=== PATIENT | male | born 1995 | race African-American/Black ===

== ENCOUNTER 2019-03-09 20:07 | Inpatient (IN) | payer OTHER ==
[2019-03-09] MEDS ORDERED: NACL 0.9% 1000 ML 2,000 ML ONE ×2 (20:24→20:37)
[2019-03-09] MEDS ORDERED: VANCOMYCIN 1,500 MG in NACL 0.9% 500 ML 500 ML IV ONE (20:28)
[2019-03-09] MEDS ORDERED: ZOVIRAX 800 MG in NACL 0.9% 100 ML IV STA (20:28)
[2019-03-09] MEDS ORDERED: NACL 0.9% 1000 ML IV ONE (20:28)
[2019-03-09] MEDS ORDERED: DECADRON IV ONE (20:32)
[2019-03-09] MEDS ORDERED: VERSED IV PRN (20:35)
[2019-03-09] MEDS ORDERED: SUBLIMAZE IV PRN (20:35)
[2019-03-09] MEDS ORDERED: ARTIFICIAL TEARS OPHTH OINT OU PRN (20:35)
[2019-03-09] MEDS ORDERED: VASELINE LIP THERAPY TP PRN (20:35)
--- NOTE | 2019-03-09 20:37 | Emergency Department Report ---
ED General Adult HPI - General Chief complaint: Weakness Stated complaint: AMS Time Seen by Provider: 03/09/19 20:27 Source: EMS (verbal report received from EMS. EMS documentation not available at the time of CHART dictation) Mode of arrival: Stretcher Limitations: Altered Mental Status, Physical Limitation - History of Present Illness Initial comments: This is a 23-year-old gentleman. The patient is not known to this provider previously. The patient is brought to the hospital by emergency medical services for altered mental status. His last known well time is not explicitly known. As per verbal report from EMS, patient found in bed, altered. Apparently, the patient was diaphoretic, foaming at the mouth, not convulsing, and was found to have a very fast tachycardic rhythm, that was reportedly borderline wide complex. EMS was concerned about SVT, and therefore given adenosine, and tried cardioversion. This was not successful. EMS states the patient had a normal Accu-Chek in the field. Upon arrival to the emergency room, the patient was altered, and foaming at the mouth, and not protecting secretions. He had a normal Accu-Chek in the emergency room. He is found to have a very tachycardic rhythm, borderline wide complex, and has a blood pressure in the 90s. Cardioversion with 200 J was attempted 2. He receives empiric sodium bicarbonate intravenously, and calcium chloride intravenously. This is not successful. In addition, he is intubated immediately and emergently for airway protection, by myself, with one attempt, with no obvious difficulties. After intubation, he is found to have a rectal temperature of 106.6. Patient started on active cooling measures, and treated empirically according to the sepsis pathway. Nursing team has been instructed to obtain patient's medications if any. As per verbal report from nursing team, family has endorsed that the patient has been having fever for about the past 36 hours. Reportedly, there is no travel outside the country. Apparently, the patient took over-the- counter fever medicine earlier on today, possibly Tylenol. The patient was altered with a GCS of 3 upon arrival, and is now intubated. He is therefore not able to describe exacerbating or relieving factors, qualitative nature of his symptoms, or radiation. His family is not able to provide collateral information at this time. -: unknown Quality: other Consistency: other Improves with: other Worsens with: other Associated Symptoms: other - Related Data Home Medications Medication Instructions Recorded Confirmed Last Taken Unobtainable 03/09/19 03/09/19 Unknown Allergies Allergy/AdvReac Type Severity Reaction Status Date / Time No Known Allergies Allergy Verified 03/09/19 20:47 ED Review of Systems ROS: Stated complaint: AMS Other details as noted in HPI Comment: Unobtainable due to pts medical conditions ED Past Medical Hx - Medications Home Medications: Home Medications Medication Instructions Recorded Confirmed Last Taken Type Unobtainable 03/09/19 03/09/19 Unknown History ED Physical Exam - General Limitations: Altered Mental Status General appearance: obtunded - Head Head exam: Present: atraumatic - Eye Eye exam: Present: PERRL - ENT ENT exam: Present: normal external ear exam, other (copious secretions noted in the oropharynx.) - Neck Neck exam: Present: normal inspection. Absent: tenderness, meningismus - Respiratory Respiratory exam: Present: respiratory distress, rhonchi - Cardiovascular Cardiovascular Exam: Present: normal rhythm, tachycardia, normal heart sounds. Absent: bradycardia, systolic murmur, diastolic murmur - GI/Abdominal GI/Abdominal exam: Present: soft, distended. Absent: tenderness, rebound, rigid, pulsatile mass - Rectal Rectal exam: Present: normal inspection - Extremities Exam Extremities exam: Present: normal inspection, other (2+ pulses noted in the bilateral upper, lower extremities. The compartments are soft. There is no long bony tenderness.). Absent: tenderness, pedal edema, joint swelling, calf tenderness - Back Exam Back exam: Absent: tenderness, CVA tenderness (R), CVA tenderness (L), paraspinal tenderness, vertebral tenderness - Neurological Exam Neurological exam: Present: altered, other (patient initially presents with GCS of 3) - Psychiatric Psychiatric exam: Present: other (the patient is nonverbal) - Skin Skin exam: Present: diaphoretic ED Course Vital Signs 03/09/19 03/09/19 03/09/19 20:08 20:16 20:29 Temperature Pulse Rate 178 H 195 H 120 H Pulse Rate [ Apical] Respiratory 29 H 16 Rate Blood Pressure 137/78 O2 Sat by Pulse 100 100 Oximetry 03/09/19 03/09/19 03/09/19 20:30 20:38 20:45 Temperature 106.6 F H Pulse Rate 169 H 163 H 125 H Pulse Rate [ Apical] Respiratory 17 16 20 Rate Blood Pressure 90/36 124/49 128/48 O2 Sat by Pulse 100 100 100 Oximetry 03/09/19 03/09/19 03/09/19 20:47 21:01 21:15 Temperature Pulse Rate 131 H 127 H 125 H Pulse Rate [ Apical] Respiratory 23 25 H Rate Blood Pressure 156/81 137/78 O2 Sat by Pulse 100 100 Oximetry 03/09/19 03/09/19 03/09/19 21:31 21:45 22:01 Temperature Pulse Rate 115 H 115 H 147 H Pulse Rate [ Apical] Respiratory 23 26 H 29 H Rate Blood Pressure 137/78 139/79 139/79 O2 Sat by Pulse 100 100 100 Oximetry 03/09/19 03/09/19 03/09/19 22:51 23:00 23:01 Temperature 104.2 F H Pulse Rate 173 H 156 H Pulse Rate [ Apical] Respiratory 27 H 25 H Rate Blood Pressure 115/57 131/51 O2 Sat by Pulse 100 100 Oximetry 03/09/19 03/09/19 03/09/19 23:15 23:31 23:45 Temperature Pulse Rate 163 H 147 H 134 H Pulse Rate [ Apical] Respiratory 33 H 29 H 34 H Rate Blood Pressure 131/51 131/51 100/56 O2 Sat by Pulse 100 100 99 Oximetry 03/10/19 03/10/19 03/10/19 00:01 00:21 00:41 Temperature Pulse Rate 120 H 118 H 117 H Pulse Rate [ Apical] Respiratory 26 H 24 24 Rate Blood Pressure 101/47 82/54 88/44 O2 Sat by Pulse 100 100 100 Oximetry 03/10/19 03/10/19 03/10/19 01:01 01:11 01:29 Temperature 101.1 F H Pulse Rate 113 H Pulse Rate [ 97 H Apical] Respiratory 24 24 Rate Blood Pressure 89/57 O2 Sat by Pulse 100 100 Oximetry - Reevaluation(s) Reevaluation #1: 03/09/19 21:59 Differential diagnosis, including but not limited to: Respiratory failure, meningitis, encephalitis, bacteremia, viremia, urinary tract infection, pneumonia, intra-abdominal infection, toxic encephalopathy, serotonin syndrome, malignant hyperthermia, thyroid storm, electrolyte derangement Assessment and plan: 23-year-old gentleman with tachycardia, initial fever of 106.6, requiring intubation, sedation, paralysis, and mechanical ventilation. Patient will be treated empirically according to the sepsis pathway with ceftriaxone, Decadron, acyclovir, and vancomycin. A spinal tap performed once his CTs have been performed of his head, and abdomen/pelvis. As per verbal report from EMS, there is no trauma. Once his paralysis has worn off, we'll assess for the presence of clonus and hyper or hyporeflexia. Currently, patient found to have convulsive event in the ER, therefore, Ativan ordered, and Keppra ordered. Discussed with critical care physician, Dr. Elvi Bermudez who agrees with placement into the intensive care unit, the patient is admitted to this hospital and not transferred. Reevaluation #2: 03/09/19 23:10 Patient has put out approximately 7 50 mL of blood from nasogastric tube. INR 3.98, PTT 38. Discussed with family and sister. Patient reportedly has no chronic medical conditions, and has not traveled outside the country. Patient also found to be hypokalemic and hypomagnesemic. Prothrombin complex concentrate ordered. Discussed with gastroenterology, Dr. Colon, who will follow in consultation. she is in agreement with medical management at this time. We will discuss with infectious disease at this time. Cannot perform spinal tap secondary to supratherapeutic INR. Rediscussed with critical care, Dr. Bermudez, who agrees with aggressive medical management. Discussed with cardiology on-call, Dr. Montana, who agrees with aggressive me dical management, echo in the morning, and assessments after echo. 03/09/19 23:30 Reevaluation #3: 03/09/19 23:31 CT scan of the brain is negative for acute disease. Fluid noted in the maxillary sinus. Reevaluation #4: 03/09/19 23:45 Cannot perform spinal tap secondary to coagulopathy. Extensive discussion had with patient's sister and family, Mrs. Ebony Thomas; [id number] 11/07/1928 to 61 She states patient has not traveled outside the country recently. No recent sick contacts that she is aware of. Discussed laboratory findings and prognosis with family. Case presented to Hospital physician, Dr. Amarilys Waddell, who has accepted the patient to the medical service. Reevaluation #5: 03/09/19 23:46 CT scan of the abdomen and pelvis suggest gastroenteritis - Consultations Consultation #1: 03/10/19 00:14 d/w infectious disease on-call, Dr. Feliciano, agrees with aforementioned management, coverage empirically for meningitis, and recommends MRI of the brain with and without contrast to evaluate for potential meningeal encephalitis. We will defer to the inpatient team to order this. Consultation #2: 03/10/19 00:40 Patient now hypotensive after aggressive fluid resuscitation. Given coagulopathy, and obvious easy bleeding, as evidenced from upper GI bleed, not ideal candidate for central line, therefore, right lower extremity intraosseous line is placed after typical aseptic technique is employed. A 25 mm 15-gauge intraosseous lines placed on the right tibial region. Norepinephrine ordered. - Intubation Time Out Performed: No (emergency situation) Sedative: Etomidate Mg Given: 20 Paralytic: Rocuronium Mg Given: 100 Laryngoscope: John Size: 4 Assist Device Used: fiberoptic device ET Tube Size: 7.5 Tube Secured Depth (cm): 23 Tube Secured Location: teeth Tube Placement Confirmation: visualized tube passing t, equal breath sounds bilat, no breath sounds over epi, confirmation by capnometr Patient Tolerated Procedure: well Intubation Complications: none Additional Comments: Patient placed on nasal cannula at 15 L/m. Receives aggressive bag valve mask ventilation, and aggressive suctioning Patient induced with etomidate, and paralyzed with rocuronium. Direct laryngoscopy performed, and a 7.5 endotracheal tube is inserted, under direct visualization, without difficulty. Tube placement is confirmed. The patient tolerated this adequately. - IO Right Tibia Consent Obtained: emergent situation Time Out Performed: Yes IO Instrument Used to Penetrate the Cortex: battery powered IO drill Patient Tolerated Procedure: well Complications: none ED Medical Decision Making - Lab Data Result diagrams: 03/11/19 21:50 03/11/19 21:50 Vital Signs 03/09/19 03/09/19 03/09/19 20:08 20:16 20:30 Temperature Pulse Rate 178 H 195 H 169 H Respiratory 29 H 16 17 Rate Blood Pressure 90/36 O2 Sat by Pulse 100 100 Oximetry 03/09/19 03/09/19 03/09/19 20:38 20:45 20:47 Temperature 106.6 F H Pulse Rate 163 H 125 H 131 H Respiratory 16 20 Rate Blood Pressure 124/49 128/48 O2 Sat by Pulse 100 100 Oximetry Lab Results 03/09/19 Range/Units 21:25 WBC 6.6 (4.5-11.0) K/mm3 RBC 5.53 H (3.65-5.03) M/mm3 Hgb 17.2 H (11.8-15.2) gm/dl Hct 50.3 H (35.5-45.6) % MCV 91 (84-94) fl MCH 31 (28-32) pg MCHC 34 (32-34) % RDW 13.2 (13.2-15.2) % - EKG Data 03/09/19 22:03 Initial EKG shows a tachycardic rhythm, extreme right axis deviation, nonspecific ST abnormality, probable normal sinus, however, the EKG has a QTC is prolonged. This is an abnormal EKG. EKG is not consistent with ST elevation myocardial infarction. EKG #2 shows a sinus tachycardia, rate of 110 bpm, there is a left axis deviation, there is left ventricular hypertrophy, the QTC is prolonged, there is a borderline left anterior fascicular block, EKG is abnormal, it is not consistent with ST elevation myocardial infarction. - Radiology Data Radiology results: report reviewed, image reviewed Print Report Referring Physician: LLUVIA MCGUIRE Patient Name: BOBBY THOMAS Date of : 1995 Sex: Male Report Date: 2019-03-09 Report Status: Finalized Findings [facility] [address] [place] [address] XRay Report Signed Patient: BOBBY THOMAS MR#: [id number] : 1995 Acct:[id number] Age/Sex: 23 / M ADM Date: 03/09/19 Loc: ED Attending Dr: Ordering Physician: LLUVIA MCGUIRE MD Date of Service: 03/09/19 Procedure(s): XR chest 1V ap Accession Number(s): [id number] cc: LLUVIA MCGUIRE MD Fluoro Time In Minutes: CHEST 1 VIEW INDICATION: resp failure. COMPARISON: None. FINDINGS: Support devices: Endotracheal tube and NG tube in satisfactory position. Heart: Within normal limits. Lungs/Pleura: No acute air space or interstitial disease. Additional findings: None. IMPRESSION: No acute abnormality. Signer Name: Garrick Cannon MD Signed: 03/09/2019 9:17 PM Workstation Name: [id number] Transcribed By: ES Dictated By: Garrick Cannon MD Electronically Authenticated By: Garrick Cannon MD Signed Date/Time: 03/09/192116 Critical Care Time: Yes Critical care time in (mins) excluding proc time.: 180 Critical care attestation.: If time is entered above; I have spent that time in minutes in the direct care of this critically ill patient, excluding procedure time. ED Disposition Clinical Impression: Acute respiratory failure, Acute encephalopathy, Hyperthermia, SIRS (systemic inflammatory response syndrome), Coagulopathy Disposition: OP ADMIT IP TO THIS HOSP Is pt being admited?: Yes Does the pt Need Aspirin: No Condition: Critical
[2019-03-09] MEDS ORDERED: MIDAZOLAM 100 MG in NACL 0.9% 80 ML IV SCH (21:00)
[2019-03-09] MEDS ORDERED: ROCEPHIN/NS 2 GM/100 ML 2 GM/100 ML BAG IV SCH (21:00)
[2019-03-09] MEDS ORDERED: VANCOMYCIN PHARMACY TO DOSE IV SCH (21:00)
[2019-03-09] MEDS ORDERED: NACL 0.9% 1000 ML 2,000 ML IV ONE ×3 (21:04→23:15)
--- NOTE | 2019-03-09 21:22 | XRay Report ---
CHEST 1 VIEW INDICATION: resp failure. COMPARISON: None. FINDINGS: Support devices: Endotracheal tube and NG tube in satisfactory position. Heart: Within normal limits. Lungs/Pleura: No acute air space or interstitial disease. Additional findings: None. IMPRESSION: No acute abnormality. Signer Name: Garrick Cannon MD Signed: 03/09/2019 9:17 PM Workstation Name: [id number]
[2019-03-09 21:43] LABS: Hematocrit 50.3 % (35.5-45.6); Hemoglobin 17.2 gm/dl (11.8-15.2); Mean Corpuscular HGB Conc 34 % (32-34); Mean Corpuscular Volume 91 fl (84-94); Red Blood Count 5.53 M/mm3 (3.65-5.03); Red Cell Distribution Width 13.2 % (13.2-15.2)
[2019-03-09] MEDS ORDERED: ATIVAN IV STA (21:50)
[2019-03-09] MEDS ORDERED: ATIVAN IV PRN (21:51)
[2019-03-09] MEDS ORDERED: KEPPRA 1,000 MG/NS 0.75% 100ML 1,000 MG/100 ML BAG IV ONE (21:51)
[2019-03-09] MEDS ORDERED: ATIVAN ONE (21:53)
[2019-03-09 22:01] LABS: INR 3.98 (0.87-1.13)
[2019-03-09 22:28] LABS: Partial Thromboplastin Time 115.3 Sec. (24.2-36.6)
[2019-03-09] MEDS ORDERED: PROTONIX IV ONE (23:01)
[2019-03-09 23:03] LABS: Alanine Aminotransferase 113 units/L (7-56); Albumin 3.6 g/dL (3.9-5); BUN/Creatinine Ratio 8; Blood Urea Nitrogen 11 mg/dL (9-20); Calcium 8.4 mg/dL (8.4-10.2); Hemolysis Index 34
[2019-03-09] MEDS ORDERED: MAGNESIUM SULFATE 2GM/50ML 2 GM/50 ML BAG IV ONE (23:08)
[2019-03-09] MEDS ORDERED: VITAMIN K (ADULT ONLY) 10 MG in NACL 0.9% 50 ML IV ONE (23:11)
[2019-03-09] MEDS ORDERED: TYLENOL PR ONE ×2 (23:12→23:19)
[2019-03-09 23:13] LABS: Hepatitis B Surface Antigen Non-Reactive (Negative); Hepatitis C Virus Antibody Non-Reactive (NonReactive)
[2019-03-09] MEDS ORDERED: VIAFLEX EMPTY CONTAINER IV ONE (23:15)
[2019-03-09] MEDS ORDERED: KCENTRA IV ONE (23:15)
[2019-03-09 23:17] LABS: Basophils % (Manual) 0 % (0.0-1.8); Eosinophils % (Manual) 0 % (0.0-4.3); Platelet Estimate Appears Decreased; RBC Morphology Normal; Total Cells Counted 100
--- NOTE | 2019-03-09 23:17 | Cat Scan Report ---
CT head/brain wo con INDICATION: MAIN: ams, UNRESPONSIVE, FEVER INTUBATED. TECHNIQUE: All CT scans at this location are performed using the following dose modulation technique: Automated exposure control. CONTRAST: None. COMPARISON: None available. FINDINGS: The ventricular system is appropriate in size and configuration without midline shift. Nega tive for mass, stroke or hemorrhage. Imaged portions of the paranasal sinuses demonstrate mild fluid at the left maxillary sinus. IMPRESSION: Mild fluid left maxillary sinus. Signer Name: Garrick Cannon MD Signed: 03/09/2019 11:12 PM Workstation Name: [id number]
[2019-03-09 23:18] LABS: Platelet Count 89 K/mm3 (140-440)
--- NOTE | 2019-03-09 23:31 | Cat Scan Report ---
CT of the abdomen and pelvis without contrast INDICATION: Fever, loss of consciousness COMPARISON: None FINDINGS: Lung bases are clear. There is moderate fatty infiltration of the liver. NG tube is seen ex tending into the stomach. The spleen, pancreas, adrenal glands and kidneys show no abnormalities. No definite gallbladder or biliary tree abnormality. No fluid is seen. There is no vascular calcificatio n. There are somewhat numerous small lymph nodes in the upper abdomen of questionable significance. CT of the pelvis shows an umbilical hernia containing fat. There is diffuse dilation of mild to moder ate degree of colon and small bowel all of which are fluid-filled. There is no evidence of bowel obst ruction. There is no wall thickening or inflammatory change. Sifuentes catheter is in place as well as re ctal tube. Prostate is not enlarged. No significant skeletal lesion. Appendix is seen and is normal. IMPRESSION: The findings are most consistent with gastroenteritis. There is no bowel obstruction and no bowel wall thickening or inflammation. Automated exposure control was utilized to diminish radiation dose. Signer Name: Isai Freire MD Signed: 03/09/2019 11:27 PM Workstation Name: [id number]
[2019-03-10] MEDS ORDERED: LEVOPHED DRIP 4 MG/NS 250 ML 4 MG/250 ML BAG IV ONE (00:41)
[2019-03-10] MEDS ORDERED: fentaNYL DRIP Premix 2,000 MCG/100 ML BAG IV ONE (00:47)
[2019-03-10] MEDS: PROTONIX 80 MG in NACL 0.9% 100 ML IV SCH ×3 (00:50→22:10)
[2019-03-10] MEDS ORDERED: ZOFRAN IV PRN (01:44)
[2019-03-10] MEDS ORDERED: TYLENOL PO PRN (01:45)
[2019-03-10] MEDS ORDERED: NACL 0.9% 1000 ML 1,000 ML IV SCH (02:00)
[2019-03-10] MEDS ORDERED: NACL 0.9% 500 ML 500 ML ONE (02:04)
[2019-03-10] MEDS: NEO-SYNEPHRINE 100 MG in NACL 0.9% 90 ML IV SCH (02:36)
[2019-03-10 02:38] LABS: Creatine Kinase MB 23.6 ng/mL (0.0-4.0)
[2019-03-10] MEDS: Vasostrict 20 UNIT in NACL 0.9% 100 ML IV SCH ×2 (02:39→14:06)
[2019-03-10] MEDS: fentaNYL DRIP Premix 2,000 MCG/100 ML BAG IV SCH ×3 (02:41→20:49)
[2019-03-10] MEDS ORDERED: NACL 0.9% 1000 ML 500 ML IV ONE (02:43)
[2019-03-10] MEDS: KCL 10MEQ/100ML 10 MEQ/100 ML BAG IV SCH ×5 (02:50→10:43)
[2019-03-10] MEDS ORDERED: AMIDATE IV ONE (03:00)
[2019-03-10] MEDS ORDERED: CALCIUM CHLORIDE IV ONE (03:00)
[2019-03-10] MEDS ORDERED: ZEMURON IV ONE (03:00)
[2019-03-10] MEDS ORDERED: VERSED IV ONE (03:00)
--- NOTE | 2019-03-10 03:27 | History and Physical Report ---
CHIEF COMPLAINT: Altered mental status. OTHER COMPLAINT: Include weakness. HISTORY OF PRESENT ILLNESS: The patient is a 23-year-old male who was noted to have developed change in mental status. The patient was noted by relatives to have developed change in mental status and was also diaphoretic and foaming from the mouth,with no convulsion observed. Also, the patient was noted to have rapid heartbeat. EMS was called, and patient's heart rhythm was found to be wide complex. The patient's heart rate reading was found to be abnormal and EMS was concerned about patient having supraventricular tachycardia and they gave adenosine and tried Cardioversion that was unsuccessful in changing the rapid heartbeat and the rythm. EMS also noted that the patient had normal blood sugar and noted the systolic blood pressure to be in the 90s. The patient was sent to the Emergency Room where he received sodium bicarbonate and calcium chloride intravenously and was intubated to protect the airway and also had a cardioversion attempted twice without success. There was history of fever, but there was no history of nausea or vomiting.The ER doctor consulted Infectious disease doctor continuous wave operator that told him to start i.v rocephine,I.V vancomycin and I.V acyclovir.The ER doctor also consulted the critical care doctor that accepted ICU admission and discussed managment with him. Also the ER doctor consulted the inspection and testing supervisor continuous wave operator who agree to follow up with patient. patient's blood pressure was noted to be running low despite I.V fluid and use of pressors PAST MEDICAL HISTORY: Unremarkable. PAST SURGICAL HISTORY: Unremarkable. FAMILY HISTORY: Noncontributory. SOCIAL HISTORY: The patient does not smoke, does not drink alcohol and does not use illicit drugs. MEDICATIONS: The patient is not on any home medications. ALLERGIES: There are no known drug allergies. REVIEW OF SYSTEMS: CONSTITUTIONAL: There is fever. There are no chills, but there is diaphoresis. HEENT: There is no headache or sore throat. CARDIOVASCULAR SYSTEM: There is no chest pain or orthopnea. RESPIRATORY SYSTEM: There is no shortness of breath or cough. GASTROINTESTINAL SYSTEM: There is no nausea, no vomiting, no abdominal pain, diarrhea or constipation. NEUROLOGICAL SYSTEM: Change in mental status noted. No dizziness. MUSCULOSKELETAL: There is no joint pain or swelling. DERMATOLOGICAL SYSTEM: There is no skin rash or itching. GENITOURINARY SYSTEM: There is no dysuria, hematuria, or flank pain. Rest of system review is normal. PHYSICAL EXAMINATION: GENERAL: At the time of exam, the patient was found to be unresponsive, intubated, mechanically ventilated with bleeding coming out from the mouth. The patient was in acute distress due to tachycardia and unresponsiveness. VITAL SIGNS: Initially show elevated temperature as high as 106.6 degrees Fahrenheit, pulse of 120 to about 178, blood pressure of 137/78, O2 sat of 100% on oxygen. HEENT: Showed pupils to be equal, round,slugglishly reactive to light and accommodating. The patient has ET tube through the mouth, down to the throat with blood stains in the mouth area. NECK: Supple with no JVD or carotid bruit. CARDIOVASCULAR SYSTEM: Showed normal first and second heart sounds with a rapid rate with no gallops or murmurs. RESPIRATORY SYSTEM: Showed good air entry on both sides of the lungs through the endotracheal tube with no abnormal breath sounds. GASTROINTESTINAL SYSTEM: Show abdomen to be full, soft, nontender with no organomegaly or rigidity. NEUROLOGICAL: Shows the patient to be resp[onsive to only notious stimulus with no evidence of any focal deficit. MUSCULOSKELETAL SYSTEM: Show no joint swelling or tenderness. DERMATOLOGICAL SYSTEM: Show no skin rash. GENITOURINARY SYSTEM: Showing no costovertebral angle tenderness. PERTINENT LABORATORY AND IMAGING STUDIES: The patient has CBC done with normal white count, elevated hemoglobin of 17.2 and elevated hematocrit of 50.3 with low platelet count of 89,000 and CBC differential showing high lymphocyte count of 48%. Coagulation studies show high PT of 38.3, high INR of 3.9 and high PTT of 115. The patient's chemistry shows high sodium level of 150 with low potassium level of 3.4 and high chloride level of 115. The patient's lactic acid level was initially high with a value of 4.5 and magnesium level was low with a value of 1.6. The patient's liver transaminases show high AST of 283 and high ALT of 113 with high lactate dehydrogenase level of 1167 and high total CPK of 691. The patient's first troponin level was high with a value of 2.8 and albumin level was low with a value of 3.6. Toxicology screen was unremarkable. Serology screen was nonreactive for hepatitis A, B, C and HIV infection. IMAGING STUDIES: The patient had CT of the abdomen and pelvis done without contrast that shows findings consistent with gastroenteritis. Also, the patient had CT of the head without contrast done that showed mild fluid in the left maxillary sinus. The patient also had chest x-ray done that shows no acute abnormality. DIAGNOSES: 1. Altered mental status. 2. Sepsis. 3. Viremia. 4. Coagulopathy. 5. Gastrointestinal bleeding. PLAN OF CARE: 1. The patient will be admitted as inpatient to ICU. 2. The patient will continue critical care consult with Dr. Salvador for ICU admission. 3. The patient will continue pulmonary consult with Dr. Meza because of intubation and mechanical ventilation. The patient will continue Infectious Disease consult with Dr. Sheri Feliciano because of diagnosis of viremia of unknown cause with sepsis.Lumbar Puncture cannot be done at this time because of cuoagulopathy. 4. The patient will continue Cardiology consult with Dr. Juaquin Spencer because of elevated troponin level and possible myocarditis. 5. The patient will have serial cardiac enzymes involving troponin, total CK, and CK-MB checked q. 6 hours x 2 more levels. 6. The patient will have serial lactic acid level checked q. 4 hours x 2 more levels. 7. The patient will be on empiric treatment for possible bacterial infection and or viral encephalitis and this will include acyclovir IV 800 mg q. 8 hours and IV ceftriaxone 1 gram q. 24 hours as well as IV vancomycin with pharmacy to dose. 8. The patient will continue IV Levophed, which will be titrated to maitain blood pressure with a MAP of 65 and above. 9. The patient will be on IV normal saline running at 150 mL an hour to try to maintain adequate blood pressure having received bolus doses in the Emergency room. 10. The patient will have CBC and CMP checked in the morning as well as PT, PTT. 11. The patient will be on Tylenol 650 mg rectally every 4 hours for fever and headache and DVT prophylaxis will be through sequential compressive device. 12. The patient will have respiratory therapy consult to manage the ventilator. 13. The patient will have a 2D echo done in the morning to evaluate the heart muscle 14. patient will have fress frozen plasma for treatment of cuagulopathy/DIC 15 Futher managment to be determined with specialist consults. JOB# [id number] OCN/NTS MTDD
[2019-03-10 03:36] LABS: Chol/HDL Ratio 6.47 %
[2019-03-10] MEDS: LEVOPHED DRIP 4 MG/NS 250 ML 4 MG/250 ML BAG IV SCH ×4 (03:54→11:01)
[2019-03-10] MEDS ORDERED: NACL 0.9% 500 ML 500 ML IV ONE ×4 (04:28→20:13)
[2019-03-10 06:30] LABS: Hematocrit 41.8 % (35.5-45.6); Hemoglobin 14.5 gm/dl (11.8-15.2); Mean Corpuscular HGB Conc 35 % (32-34); Mean Corpuscular Volume 91 fl (84-94); Red Blood Count 4.58 M/mm3 (3.65-5.03); Red Cell Distribution Width 13.6 % (13.2-15.2)
[2019-03-10 06:39] LABS: Alanine Aminotransferase 528 units/L (7-56); Albumin 2.8 g/dL (3.9-5); BUN/Creatinine Ratio 8; Blood Urea Nitrogen 11 mg/dL (9-20); Calcium 7.2 mg/dL (8.4-10.2); Creatine Kinase MB 27.2 ng/mL (0.0-4.0); Hemolysis Index 50
--- NOTE | 2019-03-10 07:24 | Progress Note ---
Assessment and Plan Assessment and plan: Per ED documentation: (Obtain as patient is currently intubated and sedated) "This is a 23-year-old gentleman.... The patient is brought to the hospital by emergency medical services for altered mental status. His last known well time is not explicitly known. As per verbal report from EMS, patient found in bed, altered. Apparently, the patient was diaphoretic, foaming at the mouth, not convulsing, and was found to have a very fast tachycardic rhythm, that was reportedly borderline wide complex. EMS was concerned about SVT, and therefore given adenosine, and tried cardioversion. This was not successful. EMS states the patient had a normal Accu-Chek in the field. Upon arrival to the emergency room, the patient was altered, and foaming at the mouth, and not protecting secretions. He had a normal Accu-Chek in the emergency room. He is found to have a very tachycardic rhythm, borderline wide complex, and has a blood pressure in the 90s. Cardioversion with 200 J was attempted 2. He receives empiric sodium bicarbonate intravenously, and calcium chloride intravenously. This is not successful. In addition, he is intubated immediately and emergently for airway protection, by myself, with one attempt, with no obvious difficulties. After intubation, he is found to have a rectal temperature of 106.6. Patient started on active cooling measures, and treated empirically according to the sepsis pathway. Nursing team has been instructed to obtain patient's medications if any. As per verbal report from nursing team, family has endorsed that the patient has been having fever for about the past 36 hours. Reportedly, there is no travel outside the country. Apparently, the patient took [id number] fever medicine earlier on today, possibly Tylenol. The patient was altered with a GCS of 3 upon arrival, and is now intubated. He is therefore not able to describe exacerbating or relieving factors, qualitative nature of his symptoms, or radiation. His family is not able to provide collateral information at this time." Initial EKG shows a tachycardic rhythm, extreme right axis deviation, nonspecific ST abnormality, probable normal sinus, however, the EKG has a QTC is prolonged. XRay Report :Support devices: Endotracheal tube and NG tube in satisfactory position. No acute abnormality. CT A/P IMPRESSION: The findings are most consistent with gastroenteritis. There is no bowel obstruction and no bowel wall thickening or inflammation. 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 Continue current treatment plan including abx Patient unable to obtain LP due to INR/coagulopathy The high probability of a clinically significant, sudden or life threatening de terioration of the [PULMONARY, CARDIAC, HEAPTIC, CASH REGISTER REPAIRER] system(s) required my full and direct attention, intervention and personal management. The aggregate critical care time was [45] minutes. This time is in addition to time spent performing reported procedures but includes the following: [X] Data Review and interpretation [X] Patient assessment and monitoring of vital signs [X] Documentation [X] Medication orders and management History Interval history: Patient seen and examined, family at bedside. critically ill appearing, no clinical change per nursing staff except noted lab abnormalities. Per family no known hx of drugs or alcohol abuse. Hospitalist Physical - Constitutional Vitals: Temp Pulse Resp BP Pulse Ox 99.7 F H 101 H 26 H 88/49 100 03/10/19 04:00 03/10/19 06:00 03/10/19 06:00 03/10/19 06:00 03/10/19 06:00 Results - Labs CBC & Chem 7: 03/11/19 03:00 03/11/19 05:00 Labs: Laboratory Last Values WBC 19.2 K/mm3 (4.5-11.0) H 03/10/19 06:00 RBC 4.58 M/mm3 (3.65-5.03) 03/10/19 06:00 Hgb 14.5 gm/dl (11.8-15.2) 03/10/19 06:00 Hct 41.8 % (35.5-45.6) D 03/10/19 06:00 MCV 91 fl (84-94) 03/10/19 06:00 MCH 32 pg (28-32) 03/10/19 06:00 MCHC 35 % (32-34) H 03/10/19 06:00 RDW 13.6 % (13.2-15.2) 03/10/19 06:00 Plt Count 89 K/mm3 (140-440) L 03/09/19 21:25 Lymph % (Auto) Piped Pocket Machine Operator 03/10/19 06:00 Sac % (Auto) Piped Pocket Machine Operator 03/10/19 06:00 Eos % (Auto) Piped Pocket Machine Operator 03/10/19 06:00 Baso % (Auto) Piped Pocket Machine Operator 03/10/19 06:00 Lymph # Piped Pocket Machine Operator 03/10/19 06:00 Sac # Piped Pocket Machine Operator 03/10/19 06:00 Eos # Piped Pocket Machine Operator 03/10/19 06:00 Baso # Piped Pocket Machine Operator 03/10/19 06:00 Add Manual Diff Complete 03/09/19 21:25 Total Counted 100 03/09/19 21:25 Seg Neutrophils % Piped Pocket Machine Operator 03/10/19 06:00 Seg Neuts % (Manual) 41.0 % (40.0-70.0) 03/09/19 21:25 0 % 03/09/19 21:25 48.0 % (13.4-35.0) H 03/09/19 21:25 Reactive Lymphs % (Man) 1.0 % 03/09/19 21:25 7.0 % (0.0-7.3) 03/09/19 21:25 0 % (0.0-4.3) 03/09/19 21:25 0 % (0.0-1.8) 03/09/19 21:25 3.0 % 03/09/19 21:25 0 % 03/09/19 21:25 0 % 03/09/19 21:25 0 % 03/09/19 21:25 Nucleated RBC % Not Reportable 03/09/19 21:25 Seg Neutrophils # Piped Pocket Machine Operator 03/10/19 06:00 Seg Neutrophils # Man 2.7 K/mm3 (1.8-7.7) 03/09/19 21:25 Band Neutrophils # 0.0 K/mm3 03/09/19 21:25 3.2 K/mm3 (1.2-5.4) 03/09/19 21:25 Abs React Lymphs (Man) 0.1 K/mm3 03/09/19 21:25 0.5 K/mm3 (0.0-0.8) 03/09/19 21:25 0.0 K/mm3 (0.0-0.4) 03/09/19 21:25 0.0 K/mm3 (0.0-0.1) 03/09/19 21:25 0.2 K/mm3 03/09/19 21:25 0.0 K/mm3 03/09/19 21:25 0.0 K/mm3 03/09/19 21:25 Blast Cells # 0.0 K/mm3 03/09/19 21:25 WBC Morphology Not Reportable 03/09/19 21:25 Hypersegmented Neuts Not Reportable 03/09/19 21:25 Hyposegmented Neuts Not Reportable 03/09/19 21:25 Hypogranular Neuts Not Reportable 03/09/19 21:25 Not Reportable 03/09/19 21:25 Not Reportable 03/09/19 21:25 Not Reportable 03/09/19 21:25 Not Reportable 03/09/19 21:25 Not Reportable 03/09/19 21:25 Not Reportable 03/09/19 21:25 Appears decreased 03/09/19 21:25 Not Reportable 03/09/19 21:25 Plt Clumps, EDTA Not Reportable 03/09/19 21:25 Not Reportable 03/09/19 21:25 Not Reportable 03/09/19 21:25 Not Reportable 03/09/19 21:25 Plt Morphology Comment Not Reportable 03/09/19 21:25 RBC Morphology Normal 03/09/19 21:25 Dimorphic RBCs Not Reportable 03/09/19 21:25 Not Reportable 03/09/19 21:25 Not Reportable 03/09/19 21:25 Not Reportable 03/09/19 21:25 Not Reportable 03/09/19 21:25 Not Reportable 03/09/19 21:25 Not Reportable 03/09/19 21:25 Not Reportable 03/09/19 21:25 Not Reportable 03/09/19 21:25 Not Reportable 03/09/19 21:25 Not Reportable 03/09/19 21:25 Not Reportable 03/09/19 21:25 Not Reportable 03/09/19 21:25 Not Reportable 03/09/19 21:25 Not Reportable 03/09/19 21:25 Not Reportable 03/09/19 21:25 Not Reportable 03/09/19 21:25 Not Reportable 03/09/19 21:25 Not Reportable 03/09/19 21:25 Not Reportable 03/09/19 21:25 Acanthocytes (Spur) Not Reportable 03/09/19 21:25 Rouleaux Not Reportable 03/09/19 21:25 Not Reportable 03/09/19 21:25 Not Reportable 03/09/19 21:25 Not Reportable 03/09/19 21:25 Not Reportable 03/09/19 21:25 Hem Pathologist Commnt No 03/09/19 21:25 PT 57.2 Sec. (12.2-14.9) H 03/10/19 05:57 INR 3.98 (0.87-1.13) H 03/09/19 21:25 APTT 115.3 Sec. (24.2-36.6) H* 03/09/19 21:25 60 mg/dl (211-480) L* 03/09/19 00:00 > 52769 ng/mlDDU (0-234) H 03/09/19 00:00 POC ABG pH 7.240 (7.35-7.45) L 03/10/19 03:43 POC ABG pCO2 39.4 (35-45) 03/09/19 21:51 POC ABG pO2 91 (80-105) 03/10/19 03:43 POC ABG HCO3 12.5 (22-26 mml/L) 03/10/19 03:43 POC ABG Total CO2 13 (23-27mmol/L) 03/10/19 03:43 POC ABG O2 Sat 96 03/10/19 03:43 POC ABG Base Excess -15 ((-2) - (+3)mmol/L) 03/10/19 03:43 50 % 03/10/19 03:43 Sodium 151 mmol/L (137-145) H 03/10/19 05:57 Potassium 4.5 mmol/L (3.6-5.0) D 03/10/19 05:57 Chloride 124.3 mmol/L (98-107) H 03/10/19 05:57 Carbon Dioxide 12 mmol/L (22-30) L 03/10/19 05:57 19 mmol/L 03/10/19 05:57 BUN 11 mg/dL (9-20) 03/10/19 05:57 1.3 mg/dL (0.8-1.5) 03/10/19 05:57 Estimated GFR > 60 ml/min 03/10/19 05:57 8 % 03/10/19 05:57 Glucose TNR 03/10/19 05:57 Lactic Acid 5.10 mmol/L (0.7-2.0) H* 03/10/19 Unknown Calcium 7.2 mg/dL (8.4-10.2) L 03/10/19 05:57 Magnesium 2.00 mg/dL (1.7-2.3) 03/10/19 01:50 1.70 mg/dL (0.1-1.2) H 03/10/19 05:57 AST 1257 units/L (5-40) H 03/10/19 05:57 ALT 528 units/L (7-56) H 03/10/19 05:57 95 units/L (35-129) 03/10/19 05:57 1167 units/L (91-180) H 03/09/19 22:20 1123 units/L (55-170) H 03/10/19 05:57 CK-MB (CK-2) 27.2 ng/mL (0.0-4.0) H 03/10/19 05:57 CK-MB (CK-2) Rel Index 2.4 (0-4) 03/10/19 05:57 2.310 ng/mL (0.00-0.029) H* 03/10/19 05:57 4.9 g/dL (6.3-8.2) L 03/10/19 05:57 2.8 g/dL (3.9-5) L 03/10/19 05:57 1.3 % 03/10/19 05:57 Triglycerides 148 mg/dL (2-149) 03/10/19 01:50 Cholesterol 149 mg/dL (50-199) 03/10/19 01:50 56 mg/dL (50-130) 03/10/19 01:50 23 mg/dL (40-59) L 03/10/19 01:50 6.47 % 03/10/19 01:50 TSH 2.950 mlU/mL (0.270-4.200) 03/09/19 22:20 Free T4 1.01 ng/dL (0.76-1.46) 03/09/19 22:20 Salicylates < 0.3 mg/dL (2.8-20.0) L 03/09/19 22:20 Acetaminophen < 5.0 ug/mL (10.0-30.0) L 03/09/19 22:20 Valproic Acid < 2.8 ug/mL (50-100) L 03/09/19 22:20 [place] 0.1 mmol/L (0.0-1.2) 03/09/19 22:20 Plasma/Serum Alcohol < 0.01 % (0-0.07) 03/09/19 22:20 Hepatitis A IgM Ab Non-reactive (NonReactive) 03/09/19 22:20 Hep Bs Antigen Non-reactive (Negative) 03/09/19 22:20 Hep B Core IgM Ab Non-reactive (NonReactive) 03/09/19 22:20 Non-reactive (NonReactive) 03/09/19 22:20 HIV 1&2 Antibody Rapid Non react (Non React) 03/09/19 21:25 Non react (Non React) 03/09/19 21:25 Blood Type O POSITIVE 03/10/19 Unknown Active Medications - Current Medications Current Medications: Generic Name Dose Route Start Last Admin Trade Name Freq PRN Reason Stop Dose Admin Acetaminophen 650 mg 03/10/19 01:45 Tylenol PO Q4H PRN Fever >101 Fentanyl 50 mcg 03/09/19 20:35 Sublimaze IV Q10MIN PRN ANALGESIA Hydrophilic Ointment 1 applic 03/09/19 20:35 Vaseline Lip Therapy TP Q2HR PRN Dry Lips Fentanyl Citrate 2,000 mcg in 100 mls @ 4.082 mls/hr 03/09/19 21:00 03/10/19 02:41 Fentanyl Drip Premix IV 2 mcg/kg/hr TITR SHAYLEE 8.165 mls/hr Administration Protocol 1 MCG/KG/HR Midazolam HCl 100 mg/ Sodium 100 mls @ 2 mls/hr 03/09/19 21:00 03/09/19 23:00 Chloride IV 3 mg/hr TITR SHAYLEE 3 mls/hr Titration Protocol 2 MG/HR Pantoprazole Sodium 80 mg/ 100 mls @ 10 mls/hr 03/09/19 23:45 03/10/19 00:50 Sodium Chloride IV 8 mg/hr DIRECT SHAYLEE 10 mls/hr Administration 8 MG/HR Norepinephrine 4 mg in 250 mls @ 7.5 mls/hr 03/10/19 01:00 03/10/19 05:27 Levophed Drip 4 Mg/Ns 250 Ml IV 2 mcg/min TITR SHAYLEE 7.5 mls/hr Administration Protocol 2 MCG/MIN Ceftriaxone Sodium 1 gm in 50 mls @ 100 mls/hr 03/10/19 10:00 Rocephin/Ns 1 Gm/50 Ml IV Q24HR SHAYLEE Protocol Acyclovir 800 mg/ Sodium 116 mls @ 100 mls/hr 03/10/19 06:00 Chloride IV Q8HR SHAYLEE Protocol Sodium Chloride 1,000 mls @ 150 mls/hr 03/10/19 02:00 03/10/19 02:47 Nacl 0.9% 1000 Ml IV 150 mls/hr DIRECT SHAYLEE Administration Vasopressin 20 unit/ Sodium 101 mls @ 9.09 mls/hr 03/10/19 03:00 03/10/19 02:39 Chloride IV 0.03 units/min TITR SHAYLEE 9.09 mls/hr Administration Protocol 0.03 UNITS/MIN Phenylephrine HCl 100 mg/ 100 mls @ 3 mls/hr 03/10/19 02:30 03/10/19 02:36 Sodium Chloride IV 100 mcg/min TITR SHAYLEE 6 mls/hr Administration Protocol 50 MCG/MIN Vancomycin HCl 1,250 mg/ 275 mls @ 166.667 mls/hr 03/10/19 10:00 Sodium Chloride IV Q12HR SHAYLEE Potassium Chloride 10 meq in 100 mls @ 100 mls/hr 03/10/19 06:15 Kcl 10meq/100ml IV 03/10/19 08:14 Q1H SHAYLEE Sodium Chloride 2,000 mls @ 999 mls/hr 03/10/19 07:21 Nacl 0.9% 1000 Ml IV 03/10/19 09:21 BOLUS ONE Lorazepam 2 mg 03/09/19 21:51 Ativan IV Q15MIN PRN Seizures Midazolam HCl 2 mg 03/09/19 20:35 Versed IV Q10MIN PRN Sedation Multi-Ingred Cream/Lotion/Oil/Oint 1 applic 03/09/19 20:35 Artificial Tears Ophth Oint OU Q4HR PRN Dry Eye(s) Ondansetron HCl 4 mg 03/10/19 01:44 Zofran IV Q8H PRN Nausea And Vomiting
[2019-03-10 07:27] LABS: INR 6.63 (0.87-1.13); Partial Thromboplastin Time > 240.0 Sec. (24.2-36.6)
[2019-03-10 07:57] LABS: Anisocytosis 1+; Band Neutrophils # (Manual) 1.2 K/mm3; Basophils % (Manual) 0 % (0.0-1.8); Eosinophils % (Manual) 0 % (0.0-4.3); Platelet Estimate Consistent w Auto; Poikilocytosis 1+; Total Cells Counted 100
[2019-03-10] MEDS ORDERED: NACL 0.9% 1000 ML 1,000 ML IV ONE (08:00)
[2019-03-10 08:01] LABS: Platelet Count 14 K/mm3 (140-440)
[2019-03-10 09:18] LABS: Alanine Aminotransferase 615 units/L (7-56); Albumin 2.3 g/dL (3.9-5); BUN/Creatinine Ratio 9; Blood Urea Nitrogen 10 mg/dL (9-20); Calcium 6.1 mg/dL (8.4-10.2); Hemolysis Index 37
[2019-03-10] MEDS: SODIUM BICARBONATE 150 MEQ in D5W 1,000 ML IV SCH ×2 (09:24→19:04)
[2019-03-10] MEDS ORDERED: D50W (25GM) Syringe IV ONE ×2 (09:31→10:00)
[2019-03-10] MEDS ORDERED: ROCEPHIN/NS 1 GM/50 ML 1 GM/50 ML BAG IV SCH (10:00)
[2019-03-10] MEDS: ZOVIRAX 800 MG in NACL 0.9% 100 ML IV SCH ×3 (10:05→22:25)
[2019-03-10 10:14] LABS: Hematocrit 41.5 % (35.5-45.6); Hemoglobin 13.9 gm/dl (11.8-15.2); Mean Corpuscular HGB Conc 34 % (32-34); Mean Corpuscular Volume 93 fl (84-94); Red Blood Count 4.47 M/mm3 (3.65-5.03); Red Cell Distribution Width 13.8 % (13.2-15.2)
[2019-03-10 10:22] LABS: Platelet Count 10 K/mm3 (140-440)
[2019-03-10] MEDS: VANCOMYCIN 1,250 MG in NACL 0.9% 250ML 250 ML IV SCH (10:34)
--- NOTE | 2019-03-10 10:34 | Consultation ---
History of Present Illness Consult date: 03/10/19 Consult reason: other (Pericarditis) History of present illness: This is a 23-year old male who was found unresponsive, foaming at the mouth by f sherrilly members. EMS was called and he was brought in for evaluation. On presentation to the emergency department, patient was hypotensive with ventricular tachycardia. Patient was given adenosine then defibrillated x2. This was unsuccessful. Initial labs revealed multiple metabolic abnormalities incl uding severe thrombocytopenia, platelet count of 14,000, WBC of 20,100, severe coagulopathy, elevated transaminase, and lactic acidosis. Patient was also noted with a temperature of 106 rectally. Chest x-ray is reported as negative and a head CT scan reports no acute intracranial abnormalities. Patient is currently in the ICU, unresponsive on the vent, levophed, vasopressin and on neosynephrine. There is also a cooling blanket in place. Patient is actively bleeding from nose and mouth. He has received FFP. A repeat ECG shows sinus tachycardia, no acute ischemic changes. Family member at bedside reports the patient has no prior medical history. Medications and Allergies Allergies Allergy/AdvReac Type Severity Reaction Status Date / Time No Known Allergies Allergy Verified 03/09/19 20:47 Home Medications Medication Instructions Recorded Confirmed Last Taken Type Unobtainable 03/09/19 03/09/19 Unknown History Active Meds: Active Medications Acetaminophen (Tylenol) 650 mg PO Q4H PRN PRN Reason: Fever >101 Fentanyl (Sublimaze) 50 mcg IV Q10MIN PRN PRN Reason: ANALGESIA Hydrophilic Ointment (Vaseline Lip Therapy) 1 applic TP Q2HR PRN PRN Reason: Dry Lips Fentanyl Citrate (Fentanyl Drip Premix) 2,000 mcg in 100 mls @ 4.082 mls/hr IV TITR SHAYLEE; Protocol Last Admin: 03/10/19 08:45 Dose: 2 mcg/kg/hr, 8.165 mls/hr Documented by: Midazolam HCl 100 mg/ Sodium (Chloride) 100 mls @ 2 mls/hr IV TITR SHAYLEE; Protocol Last Titration: 03/10/19 07:00 Dose: 0 mg/hr, 0 mls/hr Documented by: Pantoprazole Sodium 80 mg/ (Sodium Chloride) 100 mls @ 10 mls/hr IV DIRECT SHAYLEE Last Admin: 03/10/19 10:06 Dose: 8 mg/hr, 10 mls/hr Documented by: Norepinephrine (Levophed Drip 4 Mg/Ns 250 Ml) 4 mg in 250 mls @ 7.5 mls/hr IV TITR SHAYLEE; Protocol Last Admin: 03/10/19 08:29 Dose: 30 mcg/min, 112.5 mls/hr Documented by: Ceftriaxone Sodium (Rocephin/Ns 1 Gm/50 Ml) 1 gm in 50 mls @ 100 mls/hr IV Q24HR SHAYLEE; Protocol Last Admin: 03/10/19 10:19 Dose: 100 mls/hr Documented by: Acyclovir 800 mg/ Sodium (Chloride) 116 mls @ 100 mls/hr IV Q8HR SHAYLEE; Protocol Last Admin: 03/10/19 10:05 Dose: 100 mls/hr Documented by: Vasopressin 20 unit/ Sodium (Chloride) 101 mls @ 9.09 mls/hr IV TITR SHAYLEE; Protocol Last Admin: 03/10/19 02:39 Dose: 0.03 units/min, 9.09 mls/hr Documented by: Phenylephrine HCl 100 mg/ (Sodium Chloride) 100 mls @ 3 mls/hr IV TITR SHAYLEE; Protocol Last Titration: 03/10/19 10:16 Dose: 80 mcg/min, 4.8 mls/hr Documented by: Vancomycin HCl 1,250 mg/ (Sodium Chloride) 275 mls @ 166.667 mls/hr IV Q12HR SHAYLEE Sodium Bicarbonate 150 meq/ (Dextrose) 1,150 mls @ 42 mls/hr IV DIRECT SHAYLEE Last Admin: 03/10/19 09:24 Dose: 42 mls/hr Documented by: Lorazepam (Ativan) 2 mg IV Q15MIN PRN PRN Reason: Seizures Midazolam HCl (Versed) 2 mg IV Q10MIN PRN PRN Reason: Sedation Multi-Ingred Cream/Lotion/Oil/Oint (Artificial Tears Ophth Oint) 1 applic OU Q4HR PRN PRN Reason: Dry Eye(s) Ondansetron HCl (Zofran) 4 mg IV Q8H PRN PRN Reason: Nausea And Vomiting Physical Examination Vital Signs Pulse Resp 178 H 29 H 03/09/19 20:08 03/09/19 20:08 General appearance: other (intubated on the vent) Cardiac: Positive: Tachycardia Results 03/10/19 08:30 03/10/19 08:30 Cardiac Enzymes 03/09/19 03/09/19 03/10/19 Range/Units 22:20 22:20 01:50 AST 283 H (5-40) units/L Lactate Dehydrogenase 1167 H (91-180) units/L CK-MB (CK-2) 23.6 H (0.0-4.0) ng/mL 03/10/19 03/10/19 Range/Units 05:57 08:30 AST 1257 H 1494 H (5-40) units/L Lactate Dehydrogenase (91-180) units/L CK-MB (CK-2) 27.2 H (0.0-4.0) ng/mL Coagulation 03/09/19 03/10/19 Range/Units 21:25 05:57 PT 38.3 H 57.2 H (12.2-14.9) Sec. INR 3.98 H 6.63 H* (0.87-1.13) APTT 115.3 H* > 240.0 H* (24.2-36.6) Sec. Lipids 03/10/19 Range/Units 01:50 Triglycerides 148 (2-149) mg/dL Cholesterol 149 (50-199) mg/dL HDL Cholesterol 23 L (40-59) mg/dL Cholesterol/HDL Ratio 6.47 % CBC 03/09/19 03/10/19 Range/Units 21:25 06:00 WBC 6.6 20.1 H (4.5-11.0) K/mm3 RBC 5.53 H 4.58 (3.65-5.03) M/mm3 Hgb 17.2 H 14.5 (11.8-15.2) gm/dl Hct 50.3 H 41.8 D (35.5-45.6) % Plt Count 89 L 14 L* (140-440) K/mm3 Lymph # Quality Analyst/Technical Writer [place] # Quality Analyst/Technical Writer [place] # Quality Analyst/Technical Writer [place] # Quality Analyst/Technical Writer Comprehensive Metabolic Panel 03/09/19 03/10/19 03/10/19 Range/Units 22:20 05:57 08:30 Sodium 150 H 151 H 151 H (137-145) mmol/L Potassium 3.4 L 4.5 D 3.6 (3.6-5.0) mmol/L Chloride 115.1 H 124.3 H 126.9 H (98-107) mmol/L Carbon Dioxide 18 L 12 L 8 L* (22-30) mmol/L BUN 11 11 10 (9-20) mg/dL Creatinine 1.4 1.3 1.1 (0.8-1.5) mg/dL Glucose 216 H TNR 30 L* (75-100) mg/dL Calcium 8.4 7.2 L 6.1 L D (8.4-10.2) mg/dL AST 283 H 1257 H 1494 H (5-40) units/L ALT 113 H 528 H 615 H (7-56) units/L Alkaline Phosphatase 104 95 79 (35-129) units/L Total Protein 6.1 L 4.9 L 3.9 L D (6.3-8.2) g/dL Albumin 3.6 L 2.8 L 2.3 L (3.9-5) g/dL Assessment and Plan Acute respiratory failure Acute Metabolic Encephalopathy Hyperthermia Severe Sepsis Septic Shock Severe Coagulopathy Rhabdomylysis Multiple metabolic abnormalities Reflex sinus tachycardia We will obtain an echocardiogram for LVEF assessment.
--- NOTE | 2019-03-10 11:17 | Consultation ---
History of Present Illness Consult date: 03/10/19 Reason for Consult: Altered Mental Status Chief complaint: Altered mental status History of present illness: Patient is a 23 y/o man w/ no significant past medical history. Per the patient's family, he was in his usual state of health until approximately Thursday. At that time, the patient's mother noted that he was not doing his usual activities such as going out with friends. On Thursday, the patient stated that he was not feeling well, and that he had headache. He also stated that he felt febrile at the time. Yesterday afternoon, the patient called his parents mother work, and told him that he was feeling very ill and passed for them to come home. He was found at home in his bedroom, in a confused state, and nonverbal. The family did not notice any convulsions while the patient was at home. Past History Past Medical History: No medical history Past Surgical History: No surgical history Social history: no significant social history Family history: no significant family history Medications and Allergies Allergies Allergy/AdvReac Type Severity Reaction Status Date / Time No Known Allergies Allergy Verified 03/09/19 20:47 Home Medications Medication Instructions Recorded Confirmed Last Taken Type Unobtainable 03/09/19 03/09/19 Unknown History Active Meds: Active Medications Acetaminophen (Tylenol) 650 mg PO Q4H PRN PRN Reason: Fever >101 Fentanyl (Sublimaze) 50 mcg IV Q10MIN PRN PRN Reason: ANALGESIA Hydrophilic Ointment (Vaseline Lip Therapy) 1 applic TP Q2HR PRN PRN Reason: Dry Lips Fentanyl Citrate (Fentanyl Drip Premix) 2,000 mcg in 100 mls @ 4.082 mls/hr IV TITR SHAYLEE; Protocol Last Admin: 03/10/19 08:45 Dose: 2 mcg/kg/hr, 8.165 mls/hr Documented by: Midazolam HCl 100 mg/ Sodium (Chloride) 100 mls @ 2 mls/hr IV TITR SHAYLEE; Protocol Last Titration: 03/10/19 07:00 Dose: 0 mg/hr, 0 mls/hr Documented by: Pantoprazole Sodium 80 mg/ (Sodium Chloride) 100 mls @ 10 mls/hr IV DIRECT SHAYLEE Last Admin: 03/10/19 10:06 Dose: 8 mg/hr, 10 mls/hr Documented by: Ceftriaxone Sodium (Rocephin/Ns 1 Gm/50 Ml) 1 gm in 50 mls @ 100 mls/hr IV Q2 4HR SHAYLEE; Protocol Last Admin: 03/10/19 10:19 Dose: 100 mls/hr Documented by: Acyclovir 800 mg/ Sodium (Chloride) 116 mls @ 100 mls/hr IV Q8HR SHAYLEE; Protocol Last Admin: 03/10/19 10:05 Dose: 100 mls/hr Documented by: Vasopressin 20 unit/ Sodium (Chloride) 101 mls @ 9.09 mls/hr IV TITR SHAYLEE; P rotocol Last Admin: 03/10/19 02:39 Dose: 0.03 units/min, 9.09 mls/hr Documented by: Phenylephrine HCl 100 mg/ (Sodium Chloride) 100 mls @ 3 mls/hr IV TITR SHAYLEE; Protocol Last Titration: 03/10/19 10:45 Dose: 70 mcg/min, 4.2 mls/hr Documented by: Vancomycin HCl 1,250 mg/ (Sodium Chloride) 275 mls @ 166.667 mls/hr IV Q12HR SHAYLEE Last Admin: 03/10/19 10:34 Dose: 166.667 mls/hr Documented by: Sodium Bicarbonate 150 meq/ (Dextrose) 1,150 mls @ 42 mls/hr IV DIRECT SHAYLEE Last Admin: 03/10/19 09:24 Dose: 42 mls/hr Documented by: Norepinephrine 8 mg/ Sodium (Chloride) 250 mls @ 3.75 mls/hr IV TITR SHAYLEE; Protocol Lorazepam (Ativan) 2 mg IV Q15MIN PRN PRN Reason: Seizures Midazolam HCl (Versed) 2 mg IV Q10MIN PRN PRN Reason: Sedation Multi-Ingred Cream/Lotion/Oil/Oint (Artificial Tears Ophth Oint) 1 applic OU Q4HR PRN PRN Reason: Dry Eye(s) Ondansetron HCl (Zofran) 4 mg IV Q8H PRN PRN Reason: Nausea And Vomiting Review of Systems ROS unobtainable: due to mental status Physical Examination - Vital Signs Vital Signs: Vital Signs Pulse Resp 178 H 29 H 03/09/19 20:08 03/09/19 20:08 - Constitutional General appearance: acutely ill - EENT EENT: Present: PERRL, hearing intact, vision intact, other (intubated, blood noted in rosemary-oral region, ) - Respiratory Respiratory: Present: decreased breath sounds - Cardiovascular Cardiovascular: Present: regular rate, normal S1, normal S2 Extremities: Present: no peripheral edema bilatateraly, no clubbing, cyanosis - Gastrointestinal Gastrointestinal: Present: hypoactive bowel sounds - Integumentary Integumentary: Present: normal - Neurologic Cranial nerve examination: PERRL, EOMI, VFF, V1/V2/V3 grossly intact, face symmetric, other (intubated) Speech examination: other (intubated) Detailed motor examination: other (moves all extremities, but not anti-gravity. Follows 1 step commands) Detailed sensory examination: intact, light touch Reflexes: 2+: ankle, bicep, knee, tricep - Musculoskeletal Musculoskeletal: Present: no pain, normal range of motion Results - Laboratory Findings CBC and BMP: 03/10/19 08:30 03/10/19 08:30 Abnormal Lab Findings: Abnormal Labs 03/09/19 03/09/19 03/09/19 00:00 20:14 21:25 WBC RBC 5.53 H Hgb 17.2 H Hct 50.3 H MCHC Plt Count 89 L Seg Neuts % (Manual) Lymphocytes % (Manual) 48.0 H Nucleated RBC % Seg Neutrophils # Man PT INR APTT Fibrinogen 60 L* D-Dimer > 91097 H POC ABG pH Sodium Potassium Chloride Carbon Dioxide Glucose POC Glucose 221 H Lactic Acid Calcium Magnesium Total Bilirubin AST ALT Lactate Dehydrogenase Total Creatine Kinase CK-MB (CK-2) Troponin T Total Protein Albumin HDL Cholesterol Salicylates Acetaminophen Valproic Acid 03/09/19 03/09/19 03/09/19 21:25 21:51 22:20 WBC RBC Hgb Hct MCHC Plt Count Seg Neuts % (Manual) Lymphocytes % (Manual) Nucleated RBC % Seg Neutrophils # Man PT 38.3 H INR 3.98 H APTT 115.3 H* Fibrinogen D-Dimer POC ABG pH 7.286 L Sodium 150 H Potassium 3.4 L Chloride 115.1 H Carbon Dioxide 18 L Glucose 216 H POC Glucose Lactic Acid Calcium Magnesium 1.60 L Total Bilirubin AST 283 H ALT 113 H Lactate Dehydrogenase Total Creatine Kinase 691 H CK-MB (CK-2) Troponin T 2.890 H* Total Protein 6.1 L Albumin 3.6 L HDL Cholesterol Salicylates Acetaminophen Valproic Acid 03/09/19 03/09/19 03/09/19 22:20 22:20 22:20 WBC RBC Hgb Hct MCHC Plt Count Seg Neuts % (Manual) Lymphocytes % (Manual) Nucleated RBC % Seg Neutrophils # Man PT INR APTT Fibrinogen D-Dimer POC ABG pH Sodium Potassium Chloride Carbon Dioxide Glucose POC Glucose Lactic Acid Calcium Magnesium Total Bilirubin AST ALT Lactate Dehydrogenase 1167 H Total Creatine Kinase CK-MB (CK-2) Troponin T Total Protein Albumin HDL Cholesterol Salicylates < 0.3 L Acetaminophen < 5.0 L Valproic Acid < 2.8 L 03/09/19 03/10/19 03/10/19 23:20 01:45 01:50 WBC RBC Hgb Hct MCHC Plt Count Seg Neuts % (Manual) Lymphocytes % (Manual) Nucleated RBC % Seg Neutrophils # Man PT INR APTT Fibrinogen D-Dimer POC ABG pH Sodium Potassium Chloride Carbon Dioxide Glucose POC Glucose Lactic Acid 4.50 H* 2.90 H* Calcium Magnesium Total Bilirubin AST ALT Lactate Dehydrogenase Total Creatine Kinase 1019 H CK-MB (CK-2) 23.6 H Troponin T 2.250 H* D Total Protein Albumin HDL Cholesterol 23 L Salicylates Acetaminophen Valproic Acid 03/10/19 03/10/19 03/10/19 03:43 05:57 05:57 WBC RBC Hgb Hct MCHC Plt Count Seg Neuts % (Manual) Lymphocytes % (Manual) Nucleated RBC % Seg Neutrophils # Man PT 57.2 H INR 6.63 H* APTT > 240.0 H* Fibrinogen D-Dimer POC ABG pH 7.240 L Sodium 151 H Potassium Chloride 124.3 H Carbon Dioxide 12 L Glucose POC Glucose Lactic Acid Calcium 7.2 L Magnesium Total Bilirubin 1.70 H AST 1257 H ALT 528 H Lactate Dehydrogenase Total Creatine Kinase 1123 H CK-MB (CK-2) 27.2 H Troponin T 2.310 H* Total Protein 4.9 L Albumin 2.8 L HDL Cholesterol Salicylates Acetaminophen Valproic Acid 03/10/19 03/10/19 03/10/19 06:00 08:30 08:30 WBC 20.1 H 19.3 H RBC Hgb Hct MCHC 35 H Plt Count 14 L* 10 L* Seg Neuts % (Manual) 75.0 H Lymphocytes % (Manual) Nucleated RBC % 8.0 H Seg Neutrophils # Man 14.4 H PT INR APTT Fibrinogen D-Dimer POC ABG pH Sodium 151 H Potassium Chloride 126.9 H Carbon Dioxide 8 L* Glucose 30 L* POC Glucose Lactic Acid Calcium 6.1 L D Magnesium Total Bilirubin 1.60 H AST 1494 H ALT 615 H Lactate Dehydrogenase Total Creatine Kinase CK-MB (CK-2) Troponin T Total Protein 3.9 L D Albumin 2.3 L HDL Cholesterol Salicylates Acetaminophen Valproic Acid 03/10/19 03/10/19 08:55 Unknown WBC RBC Hgb Hct MCHC Plt Count Seg Neuts % (Manual) Lymphocytes % (Manual) Nucleated RBC % Seg Neutrophils # Man PT INR APTT Fibrinogen D-Dimer POC ABG pH Sodium Potassium Chloride Carbon Dioxide Glucose POC Glucose Lactic Acid 4.40 H* 5.10 H* Calcium Magnesium Total Bilirubin AST ALT Lactate Dehydrogenase Total Creatine Kinase CK-MB (CK-2) Troponin T Total Protein Albumin HDL Cholesterol Salicylates Acetaminophen Valproic Acid Assessment and Plan Patient is a 23 y/o man w/ no significant past medical history, who presents with altered mental status since yesterday. On admission, patient was noted to have a fever of 106, an upper GI bleed, he was noted to have hypotension with ventricular tachycardia, thrombocytopenia, leukocytosis, coagulopathy with increased INR, lactic acidosis, and required pressor support. According the patient's clinical findings, it is likely that his altered mental status is due to metabolic encephalopathy given his multiple metabolic derangements. It is also possible that the patient has a viral or bacterial meningo-encephalitis, as the patient was complaining of headaches and fevers on Thursday. It is also possible that the patient has had seizures, however the patient is now following one-step commands, and is noted to be somewhat more alert. Plan: 1. Metabolic encephalopathy: - Recommend checking urine drug screen - Check MRI brain w/wo - Check EEG - Patient currently on pressor support due to hypotension. - recommend cardiology consult to evaluate cardiac status - GI following for upper GI bleed - ID following, patient empirically being treated for meningitis/encephalitis. Cont. Abx/anti-viral treatment per ID recs. - Unable to perform LP safely at this time, due to coagulopathy. Will consider once INR normalizes. - Will consider AED based on EEG findings. - Cont. to correct metabolic/infectious abnormalities per primary/ID/ICU teams. -Will continue to monitor neurologic status with serial neurologic exams. - Plan of care discussed with family and primary team. Eddie Carlson MD Neurology - Patient Problems (1) Metabolic encephalopathy Current Visit: Yes Status: Acute
--- NOTE | 2019-03-10 11:24 | Consultation ---
History of Present Illness - Reason for Consult Consult date: 03/10/19 - History of Present Illness 23 yo M no significant PMhx admitted with altered mental status. He was found by relatives to be diaphoretic and "foaming at the mouth", however he wa not obviously convulsive at the time. He was picked up by EMS and found to have an SVT, however their interventions were not successful in converting him to sinus rhythm. He was then unsuccessfully cardioverted twice in the ER, and was intubat ed for airway protection. He was noted by family to have fever at home but no other symptoms, and prior to this was in his usual good health. Discussed with the family. He lives in [place] with his parents. He immigrated in the early when he was a young child. No recent travel outside the [facility] area. His sister notes that he does like to go hiking with friends, but is uncertain the last time he went or if he had any tick bites at the time. Previously was working at [employer], but recently quit. No exposure to farms or farm animals. As the patient remains intubated, the history is taken from the chart. He is not noted to have any recent travel outside the country. His Tmax on admission was 106.6 and is now 100.6. He was placed on active cooling measures in the ED. Cu rrently receiving ceftriaxone and vancomycin. WBC is 20. Hepatitis screen and HIV screen are negative. CXR no abnormalities. Head CT only with fluid in maxillary sinus. CTAP with gastroenteritis. Past History Past Medical History: No medical history Past Surgical History: No surgical history Social history: no significant social history. denies: alcohol abuse, IV drug use Family history: no significant family history (per family) Medications and Allergies Allergies Allergy/AdvReac Type Severity Reaction Status Date / Time No Known Allergies Allergy Verified 03/09/19 20:47 Home Medications Medication Instructions Recorded Confirmed Last Taken Type Unobtainable 03/09/19 03/09/19 Unknown History Active Meds: Active Medications Acetaminophen (Tylenol) 650 mg PO Q4H PRN PRN Reason: Fever >101 Fentanyl (Sublimaze) 50 mcg IV Q10MIN PRN PRN Reason: ANALGESIA Hydrophilic Ointment (Vaseline Lip Therapy) 1 applic TP Q2HR PRN PRN Reason: Dry Lips Fentanyl Citrate (Fentanyl Drip Premix) 2,000 mcg in 100 mls @ 4.082 mls/hr IV TITR SHAYLEE; Protocol Last Admin: 03/10/19 08:45 Dose: 2 mcg/kg/hr, 8.165 mls/hr Documented by: Midazolam HCl 100 mg/ Sodium (Chloride) 100 mls @ 2 mls/hr IV TITR SHAYLEE; Protocol Last Titration: 03/10/19 07:00 Dose: 0 mg/hr, 0 mls/hr Documented by: Pantoprazole Sodium 80 mg/ (Sodium Chloride) 100 mls @ 10 mls/hr IV DIRECT SHAYLEE Last Admin: 03/10/19 10:06 Dose: 8 mg/hr, 10 mls/hr Documented by: Ceftriaxone Sodium (Rocephin/Ns 1 Gm/50 Ml) 1 gm in 50 mls @ 100 mls/hr IV Q24HR SHAYLEE; Protocol Last Admin: 03/10/19 10:19 Dose: 100 mls/hr Documented by: Acyclovir 800 mg/ Sodium (Chloride) 116 mls @ 100 mls/hr IV Q8HR SHAYLEE; Protocol Last Admin: 03/10/19 10:05 Dose: 100 mls/hr Documented by: Vasopressin 20 unit/ Sodium (Chloride) 101 mls @ 9.09 mls/hr IV TITR SHAYLEE; Protocol Last Admin: 03/10/19 02:39 Dose: 0.03 units/min, 9.09 mls/hr Documented by: Phenylephrine HCl 100 mg/ (Sodium Chloride) 100 mls @ 3 mls/hr IV TITR SHAYLEE; Protocol Last Titration: 03/10/19 11:16 Dose: 60 mcg/min, 3.6 mls/hr Documented by: Vancomycin HCl 1,250 mg/ (Sodium Chloride) 275 mls @ 166.667 mls/hr IV Q12HR SHAYLEE Last Admin: 03/10/19 10:34 Dose: 166.667 mls/hr Documented by: Sodium Bicarbonate 150 meq/ (Dextrose) 1,150 mls @ 42 mls/hr IV DIRECT SHAYLEE Last Admin: 03/10/19 09:24 Dose: 42 mls/hr Documented by: Norepinephrine 8 mg/ Sodium (Chloride) 250 mls @ 3.75 mls/hr IV TITR SHAYLEE; Protocol Lorazepam (Ativan) 2 mg IV Q15MIN PRN PRN Reason: Seizures Midazolam HCl (Versed) 2 mg IV Q10MIN PRN PRN Reason: Sedation Multi-Ingred Cream/Lotion/Oil/Oint (Artificial Tears Ophth Oint) 1 applic OU Q4HR PRN PRN Reason: Dry Eye(s) Ondansetron HCl (Zofran) 4 mg IV Q8H PRN PRN Reason: Nausea And Vomiting Review of Systems ROS unobtainable: due to endotracheal tube Physical Examination - Physical Exam Narrative exam: Constitutional: intubated, not responsive, diaphoretic Head, Ears, Nose: Normocephalic, atraumatic. External ears, nose normal Eyes: Conjunctivae/corneas clear. No icterus. No ptosis. Neck: Supple, no meningeal signs Oral: fair dentition, moist mucous membranes Cardiovascular: S1, S2 normal. Normal rhythm Respiratory: Good air entry, clear to auscultation bilaterally GI: Soft, non-tender; bowel sounds normal. No peritoneal signs Musculoskeletal: No pedal edema, Skin: No rash or abscess Hem/Lymphatic: No palpable cervical or supraclavicular nodes. No lymphangitis Psych: no agitation Neurological: No spontaneous movements observed - Constitutional Vitals: Vital Signs Temp Pulse Resp BP Pulse Ox 100.8 F H 98 H 30 H 138/69 100 03/10/19 10:45 03/10/19 10:45 03/10/19 10:45 03/10/19 10:45 03/10/19 10:45 Temperature -Last 24 Hours Temperature 100.8 F Temperature 100.7 F Temperature 100.7 F Temperature 100.6 F Temperature 100.7 F Temperature 100.9 F Temperature 100.9 F Temperature 100.9 F Temperature 100.7 F Temperature 99.7 F Temperature 101.1 F Temperature 104.2 F Temperature 106.6 F Results - Labs CBC & Chem 7: 03/10/19 08:30 03/10/19 08:30 Labs: Abnormal lab results 03/09/19 03/09/19 03/09/19 Range/Units 00:00 20:14 21:25 WBC (4.5-11.0) K/mm3 RBC 5.53 H (3.65-5.03) M/mm3 Hgb 17.2 H (11.8-15.2) gm/dl Hct 50.3 H (35.5-45.6) % MCHC (32-34) % Plt Count 89 L (140-440) K/mm3 Seg Neuts % (Manual) (40.0-70.0) % Lymphocytes % (Manual) 48.0 H (13.4-35.0) % Nucleated RBC % (0.0-0.9) % Seg Neutrophils # Man (1.8-7.7) K/mm3 PT (12.2-14.9) Sec. INR (0.87-1.13) APTT (24.2-36.6) Sec. Fibrinogen 60 L* (211-480) mg/dl D-Dimer > 69740 H (0-234) ng/mlDDU POC ABG pH (7.35-7.45) POC ABG pO2 (80-105) Sodium (137-145) mmol/L Potassium (3.6-5.0) mmol/L Chloride (98-107) mmol/L Carbon Dioxide (22-30) mmol/L Glucose (75-100) mg/dL POC Glucose 221 H (70-105) Lactic Acid (0.7-2.0) mmol/L Calcium (8.4-10.2) mg/dL Magnesium (1.7-2.3) mg/dL Total Bilirubin (0.1-1.2) mg/dL AST (5-40) units/L ALT (7-56) units/L Lactate Dehydrogenase (91-180) units/L Total Creatine Kinase (55-170) units/L CK-MB (CK-2) (0.0-4.0) ng/mL Troponin T (0.00-0.029) ng/mL Total Protein (6.3-8.2) g/dL Albumin (3.9-5) g/dL HDL Cholesterol (40-59) mg/dL Salicylates (2.8-20.0) mg/dL Acetaminophen (10.0-30.0) ug/mL Valproic Acid (50-100) ug/mL 03/09/19 03/09/19 03/09/19 Range/Units 21:25 21:51 22:20 WBC (4.5-11.0) K/mm3 RBC (3.65-5.03) M/mm3 Hgb (11.8-15.2) gm/dl Hct (35.5-45.6) % MCHC (32-34) % Plt Count (140-440) K/mm3 Seg Neuts % (Manual) (40.0-70.0) % Lymphocytes % (Manual) (13.4-35.0) % Nucleated RBC % (0.0-0.9) % Seg Neutrophils # Man (1.8-7.7) K/mm3 PT 38.3 H (12.2-14.9) Sec. INR 3.98 H (0.87-1.13) APTT 115.3 H* (24.2-36.6) Sec. Fibrinogen (211-480) mg/dl D-Dimer (0-234) ng/mlDDU POC ABG pH 7.286 L (7.35-7.45) POC ABG pO2 (80-105) Sodium 150 H (137-145) mmol/L Potassium 3.4 L (3.6-5.0) mmol/L Chloride 115.1 H (98-107) mmol/L Carbon Dioxide 18 L (22-30) mmol/L Glucose 216 H (75-100) mg/dL POC Glucose (70-105) Lactic Acid (0.7-2.0) mmol/L Calcium (8.4-10.2) mg/dL Magnesium 1.60 L (1.7-2.3) mg/dL Total Bilirubin (0.1-1.2) mg/dL AST 283 H (5-40) units/L ALT 113 H (7-56) units/L Lactate Dehydrogenase (91-180) units/L Total Creatine Kinase 691 H (55-170) units/L CK-MB (CK-2) (0.0-4.0) ng/mL Troponin T 2.890 H* (0.00-0.029) ng/mL Total Protein 6.1 L (6.3-8.2) g/dL Albumin 3.6 L (3.9-5) g/dL HDL Cholesterol (40-59) mg/dL Salicylates (2.8-20.0) mg/dL Acetaminophen (10.0-30.0) ug/mL Valproic Acid (50-100) ug/mL 08/07/19 08/07/19 08/07/19 Range/Units 22:20 22:20 22:20 WBC (4.5-11.0) K/mm3 RBC (3.65-5.03) M/mm3 Hgb (11.8-15.2) gm/dl Hct (35.5-45.6) % MCHC (32-34) % Plt Count (140-440) K/mm3 Seg Neuts % (Manual) (40.0-70.0) % Lymphocytes % (Manual) (13.4-35.0) % Nucleated RBC % (0.0-0.9) % Seg Neutrophils # Man (1.8-7.7) K/mm3 PT (12.2-14.9) Sec. INR (0.87-1.13) APTT (24.2-36.6) Sec. Fibrinogen (211-480) mg/dl D-Dimer (0-234) ng/mlDDU POC ABG pH (7.35-7.45) POC ABG pO2 (80-105) Sodium (137-145) mmol/L Potassium (3.6-5.0) mmol/L Chloride (98-107) mmol/L Carbon Dioxide (22-30) mmol/L Glucose (75-100) mg/dL POC Glucose (70-105) Lactic Acid (0.7-2.0) mmol/L Calcium (8.4-10.2) mg/dL Magnesium (1.7-2.3) mg/dL Total Bilirubin (0.1-1.2) mg/dL AST (5-40) units/L ALT (7-56) units/L Lactate Dehydrogenase 1167 H (91-180) units/L Total Creatine Kinase (55-170) units/L CK-MB (CK-2) (0.0-4.0) ng/mL Troponin T (0.00-0.029) ng/mL Total Protein (6.3-8.2) g/dL Albumin (3.9-5) g/dL HDL Cholesterol (40-59) mg/dL Salicylates < 0.3 L (2.8-20.0) mg/dL Acetaminophen < 5.0 L (10.0-30.0) ug/mL Valproic Acid < 2.8 L (50-100) ug/mL 08/02/1803/10/19 03/10/19 Range/Units 23:20 01:45 01:50 WBC (4.5-11.0) K/mm3 RBC (3.65-5.03) M/mm3 Hgb (11.8-15.2) gm/dl Hct (35.5-45.6) % MCHC (32-34) % Plt Count (140-440) K/mm3 Seg Neuts % (Manual) (40.0-70.0) % Lymphocytes % (Manual) (13.4-35.0) % Nucleated RBC % (0.0-0.9) % Seg Neutrophils # Man (1.8-7.7) K/mm3 PT (12.2-14.9) Sec. INR (0.87-1.13) APTT (24.2-36.6) Sec. Fibrinogen (211-480) mg/dl D-Dimer (0-234) ng/mlDDU POC ABG pH (7.35-7.45) POC ABG pO2 (80-105) Sodium (137-145) mmol/L Potassium (3.6-5.0) mmol/L Chloride (98-107) mmol/L Carbon Dioxide (22-30) mmol/L Glucose (75-100) mg/dL POC Glucose (70-105) Lactic Acid 4.50 H* 2.90 H* (0.7-2.0) mmol/L Calcium (8.4-10.2) mg/dL Magnesium (1.7-2.3) mg/dL Total Bilirubin (0.1-1.2) mg/dL AST (5-40) units/L ALT (7-56) units/L Lactate Dehydrogenase (91-180) units/L Total Creatine Kinase 1019 H (55-170) units/L CK-MB (CK-2) 23.6 H (0.0-4.0) ng/mL Troponin T 2.250 H* D (0.00-0.029) ng/mL Total Protein (6.3-8.2) g/dL Albumin (3.9-5) g/dL HDL Cholesterol 23 L (40-59) mg/dL Salicylates (2.8-20.0) mg/dL Acetaminophen (10.0-30.0) ug/mL Valproic Acid (50-100) ug/mL 03/10/19 03/10/19 03/10/19 Range/Units 03:43 05:57 05:57 WBC (4.5-11.0) K/mm3 RBC (3.65-5.03) M/mm3 Hgb (11.8-15.2) gm/dl Hct (35.5-45.6) % MCHC (32-34) % Plt Count (140-440) K/mm3 Seg Neuts % (Manual) (40.0-70.0) % Lymphocytes % (Manual) (13.4-35.0) % Nucleated RBC % (0.0-0.9) % Seg Neutrophils # Man (1.8-7.7) K/mm3 PT 57.2 H (12.2-14.9) Sec. INR 6.63 H* (0.87-1.13) APTT > 240.0 H* (24.2-36.6) Sec. Fibrinogen (211-480) mg/dl D-Dimer (0-234) ng/mlDDU POC ABG pH 7.240 L (7.35-7.45) POC ABG pO2 (80-105) Sodium 151 H (137-145) mmol/L Potassium (3.6-5.0) mmol/L Chloride 124.3 H (98-107) mmol/L Carbon Dioxide 12 L (22-30) mmol/L Glucose (75-100) mg/dL POC Glucose (70-105) Lactic Acid (0.7-2.0) mmol/L Calcium 7.2 L (8.4-10.2) mg/dL Magnesium (1.7-2.3) mg/dL Total Bilirubin 1.70 H (0.1-1.2) mg/dL AST 1257 H (5-40) units/L ALT 528 H (7-56) units/L Lactate Dehydrogenase (91-180) units/L Total Creatine Kinase 1123 H (55-170) units/L CK-MB (CK-2) 27.2 H (0.0-4.0) ng/mL Troponin T 2.310 H* (0.00-0.029) ng/mL Total Protein 4.9 L (6.3-8.2) g/dL Albumin 2.8 L (3.9-5) g/dL HDL Cholesterol (40-59) mg/dL Salicylates (2.8-20.0) mg/dL Acetaminophen (10.0-30.0) ug/mL Valproic Acid (50-100) ug/mL 03/10/19 03/10/19 03/10/19 Range/Units 06:00 08:30 08:30 WBC 20.1 H 19.3 H (4.5-11.0) K/mm3 RBC (3.65-5.03) M/mm3 Hgb (11.8-15.2) gm/dl Hct (35.5-45.6) % MCHC 35 H (32-34) % Plt Count 14 L* 10 L* (140-440) K/mm3 Seg Neuts % (Manual) 75.0 H (40.0-70.0) % Lymphocytes % (Manual) (13.4-35.0) % Nucleated RBC % 8.0 H (0.0-0.9) % Seg Neutrophils # Man 14.4 H (1.8-7.7) K/mm3 PT (12.2-14.9) Sec. INR (0.87-1.13) APTT (24.2-36.6) Sec. Fibrinogen (211-480) mg/dl D-Dimer (0-234) ng/mlDDU POC ABG pH (7.35-7.45) POC ABG pO2 (80-105) Sodium 151 H (137-145) mmol/L Potassium (3.6-5.0) mmol/L Chloride 126.9 H (98-107) mmol/L Carbon Dioxide 8 L* (22-30) mmol/L Glucose 30 L* (75-100) mg/dL POC Glucose (70-105) Lactic Acid (0.7-2.0) mmol/L Calcium 6.1 L D (8.4-10.2) mg/dL Magnesium (1.7-2.3) mg/dL Total Bilirubin 1.60 H (0.1-1.2) mg/dL AST 1494 H (5-40) units/L ALT 615 H (7-56) units/L Lactate Dehydrogenase (91-180) units/L Total Creatine Kinase (55-170) units/L CK-MB (CK-2) (0.0-4.0) ng/mL Troponin T (0.00-0.029) ng/mL Total Protein 3.9 L D (6.3-8.2) g/dL Albumin 2.3 L (3.9-5) g/dL HDL Cholesterol (40-59) mg/dL Salicylates (2.8-20.0) mg/dL Acetaminophen (10.0-30.0) ug/mL Valproic Acid (50-100) ug/mL 03/10/19 03/10/19 03/10/19 Range/Units 08:55 11:12 Unknown WBC (4.5-11.0) K/mm3 RBC (3.65-5.03) M/mm3 Hgb (11.8-15.2) gm/dl Hct (35.5-45.6) % MCHC (32-34) % Plt Count (140-440) K/mm3 Seg Neuts % (Manual) (40.0-70.0) % Lymphocytes % (Manual) (13.4-35.0) % Nucleated RBC % (0.0-0.9) % Seg Neutrophils # Man (1.8-7.7) K/mm3 PT (12.2-14.9) Sec. INR (0.87-1.13) APTT (24.2-36.6) Sec. Fibrinogen (211-480) mg/dl D-Dimer (0-234) ng/mlDDU POC ABG pH 7.272 L (7.35-7.45) POC ABG pO2 230 H (80-105) Sodium (137-145) mmol/L Potassium (3.6-5.0) mmol/L Chloride (98-107) mmol/L Carbon Dioxide (22-30) mmol/L Glucose (75-100) mg/dL POC Glucose (70-105) Lactic Acid 4.40 H* 5.10 H* (0.7-2.0) mmol/L Calcium (8.4-10.2) mg/dL Magnesium (1.7-2.3) mg/dL Total Bilirubin (0.1-1.2) mg/dL AST (5-40) units/L ALT (7-56) units/L Lactate Dehydrogenase (91-180) units/L Total Creatine Kinase (55-170) units/L CK-MB (CK-2) (0.0-4.0) ng/mL Troponin T (0.00-0.029) ng/mL Total Protein (6.3-8.2) g/dL Albumin (3.9-5) g/dL HDL Cholesterol (40-59) mg/dL Salicylates (2.8-20.0) mg/dL Acetaminophen (10.0-30.0) ug/mL Valproic Acid (50-100) ug/mL - Imaging and Cardiology Chest x-ray: image reviewed CT scan - abdomen: image reviewed (gastroenteritis) CT Scan - head: image reviewed (maxillary sinus fluid) Assessment and Plan Cultures: 03/09 BCx - NGTD A/P: 23 yo M no PMHx admitted with altered mental status, sepsis. 1. Sepsis - positive SIRS criteria, extremely high fevers. Unclear etiology as such. Gastroenteritis seen on abdominal CT but does not explain all symptoms. Unclear if some level of central fever involved here. Would strongly consider LP at this time and sending for analysis and culture, though INR prohibitive. Would continue vancomycin and change ceftriaxone to meningitis dosing (2g q12h) and add metronidazole for empiric meningitis coverage. Would check for tick borne diseases and add doxycycline empirically. 2. Acute liver failure - hepatitis negative. INR prohibitive of LP. In [facility] 3. Altered mental status 4. Acute respiratory failure 5. Altered mental status - agree with MRI when stable enough for imaging. 6. Hyperthermia - extremely high fever on admission, now on cooling blankets. Recs: - increase ceftriaxone to 2g q12h - continue vancomycin - check vancomycin trough after 4th dose - add metronidazole 500mg q8h - add doxycycline 100mg q12h - check tick borne panel - ordered as miscellaneous test (Ehrlichia, Anaplasma, Rickettsia antibodies) - if possible, LP for analysis and culture MD [facility] C: [phone] O: [phone] F: [phone]
[2019-03-10 11:25] LABS: Band Neutrophils # (Manual) 2.3 K/mm3; Basophils % (Manual) 0 % (0.0-1.8); Eosinophils % (Manual) 0 % (0.0-4.3); Platelet Estimate Consistent w Auto; Total Cells Counted 100
[2019-03-10 11:26] LABS: Burr Cells 3+
--- NOTE | 2019-03-10 11:53 | Gastroenterology Consultation ---
History of Present Illness - Reason for Consult Consult date: 03/10/19 UGIB Requesting physician: LLUVIA MCGUIRE - History of Present Illness Patient is a 23 y/o male with no significant PMH who was brought to ED by EMS after being found unresponsive, foaming at the mouth by family at home (family reports patient c/o not feeling well with headache and fever on Thursday). Upon arrival, he was found to be hypotensive, along with having ventricular tachycardia (unsuccessfully cardioverted x 2 in ER), temp of 106.6, and multiple metabolic abnormalities (severe thrombocytopenia, WBC 20K, severe coagulopathy, elevated transaminase, and elevated lactic acid). CXR no abnormalities. Head CT with fluid in maxillary sinus. CTAP with gastroenteritis. HIV and hepatitis sc reen negative. He is currently in ICU, unresponsive on vent and pressor support (levophed, vasopressin and on neosynephrine), receiving cooling measures and empiric antibiotics for sepsis/septic shock. ID following with recommendations for LP for analysis and culture (r/o meninigitis), however INR prohibitive at this time. Neurology, cardiology, and pulmonary also following. GI has been consulted for UGIB 2/2 blood from NGT. Upon exam, there was noted bright red blood from NGT and old blood in mouth, along with dark liquid stool in rectal tube. No hematochezia. Family at bedside who assisted with providing history, with no reports of previous hx of GI bleeding, PUD, liver disease, IBD, or mota bstance abuse with alcohol or drugs. No recent travel or known ill contacts. Does not take blood thinning medications at home. Past History Past Medical History: No medical history Past Surgical History: No surgical history Social history: no significant social history. denies: alcohol abuse, IV drug use Family history: no significant family history (per family) Medications and Allergies Allergies Allergy/AdvReac Type Severity Reaction Status Date / Time No Known Allergies Allergy Verified 03/09/19 20:47 Home Medications Medication Instructions Recorded Confirmed Last Taken Type Unobtainable 03/09/19 03/09/19 Unknown History Active Meds: Active Medications Acetaminophen (Tylenol) 650 mg PO Q4H PRN PRN Reason: Fever >101 Fentanyl (Sublimaze) 50 mcg IV Q10MIN PRN PRN Reason: ANALGESIA Hydrophilic Ointment (Vaseline Lip Therapy) 1 applic TP Q2HR PRN PRN Reason: Dry Lips Fentanyl Citrate (Fentanyl Drip Premix) 2,000 mcg in 100 mls @ 4.082 mls/hr IV TITR SHAYLEE; Protocol Last Admin: 03/10/19 08:45 Dose: 2 mcg/kg/hr, 8.165 mls/hr Documented by: Midazolam HCl 100 mg/ Sodium (Chloride) 100 mls @ 2 mls/hr IV TITR SHAYLEE; Protocol Last Titration: 03/10/19 07:00 Dose: 0 mg/hr, 0 mls/hr Documented by: Pantoprazole Sodium 80 mg/ (Sodium Chloride) 100 mls @ 10 mls/hr IV DIRECT SHAYLEE Last Admin: 03/10/19 10:06 Dose: 8 mg/hr, 10 mls/hr Documented by: Ceftriaxone Sodium (Rocephin/Ns 1 Gm/50 Ml) 1 gm in 50 mls @ 100 mls/hr IV Q24HR SHAYLEE; Protocol Last Admin: 03/10/19 10:19 Dose: 100 mls/hr Documented by: Acyclovir 800 mg/ Sodium (Chloride) 116 mls @ 100 mls/hr IV Q8HR SHAYLEE; Protocol Last Admin: 03/10/19 10:05 Dose: 100 mls/hr Documented by: Vasopressin 20 unit/ Sodium (Chloride) 101 mls @ 9.09 mls/hr IV TITR SHAYLEE; Protocol Last Admin: 03/10/19 02:39 Dose: 0.03 units/min, 9.09 mls/hr Documented by: Phenylephrine HCl 100 mg/ (Sodium Chloride) 100 mls @ 3 mls/hr IV TITR SHAYLEE; Protocol Last Titration: 03/10/19 11:16 Dose: 60 mcg/min, 3.6 mls/hr Documented by: Vancomycin HCl 1,250 mg/ (Sodium Chloride) 275 mls @ 166.667 mls/hr IV Q12HR SHAYLEE Last Admin: 03/10/19 10:34 Dose: 166.667 mls/hr Documented by: Sodium Bicarbonate 150 meq/ (Dextrose) 1,150 mls @ 42 mls/hr IV DIRECT SHAYLEE Last Infusion: 03/10/19 11:20 Dose: 150 mls/hr Documented by: Norepinephrine 8 mg/ Sodium (Chloride) 250 mls @ 3.75 mls/hr IV TITR SHAYLEE; Protocol Lorazepam (Ativan) 2 mg IV Q15MIN PRN PRN Reason: Seizures Midazolam HCl (Versed) 2 mg IV Q10MIN PRN PRN Reason: Sedation Multi-Ingred Cream/Lotion/Oil/Oint (Artificial Tears Ophth Oint) 1 applic OU Q4HR PRN PRN Reason: Dry Eye(s) Ondansetron HCl (Zofran) 4 mg IV Q8H PRN PRN Reason: Nausea And Vomiting medications reviewed/updated as required Review of Systems - Review of Systems ROS unobtainable: due to endotracheal tube, due to mental status Exam - Constitutional Vital Signs: Temp Pulse Resp BP Pulse Ox 100.8 F H 104 H 30 H 128/68 100 03/10/19 10:45 03/10/19 11:12 03/10/19 10:45 03/10/19 11:12 03/10/19 11:12 General appearance: other (unreponsive on vent and pressor support in ICU) - EENT ENT: other (+ETT, +NGT with noted bright red blood ) - Respiratory Respiratory: bilateral: CTA - Cardiovascular Rhythm: other (tachycardia) - Gastrointestinal General gastrointestinal: Present: soft, non-distended, hypoactive bowel sounds Rectal Exam: other (rectal tube with liquid dark stool) - Labs CBC & Chem 7: 03/10/19 08:30 03/10/19 08:30 Lab Results: Laboratory Results - last 24 hr 03/09/19 03/09/19 03/09/19 00:00 20:14 21:25 WBC 6.6 RBC 5.53 H Hgb 17.2 H Hct 50.3 H MCV 91 MCH 31 MCHC 34 RDW 13.2 Plt Count 89 L Lymph % (Auto) [place] % (Auto) Eos % (Auto) Baso % (Auto) Lymph # [place] # Eos # Baso # Add Manual Diff Complete Total Counted 100 Seg Neutrophils % Seg Neuts % (Manual) 41.0 Band Neutrophils % 0 Lymphocytes % (Manual) 48.0 H Reactive Lymphs % (Man) 1.0 Monocytes % (Manual) 7.0 Eosinophils % (Manual) 0 Basophils % (Manual) 0 Metamyelocytes % 3.0 Myelocytes % 0 Promyelocytes % 0 Blast Cells % 0 Nucleated RBC % Not Reportable Seg Neutrophils # Seg Neutrophils # Man 2.7 Band Neutrophils # 0.0 Lymphocytes # (Manual) 3.2 Abs React Lymphs (Man) 0.1 Monocytes # (Manual) 0.5 Eosinophils # (Manual) 0.0 Basophils # (Manual) 0.0 Metamyelocytes # 0.2 Myelocytes # 0.0 Promyelocytes # 0.0 Blast Cells # 0.0 WBC Morphology Not Reportable Hypersegmented Neuts Not Reportable Hyposegmented Neuts Not Reportable Hypogranular Neuts Not Reportable Smudge Cells Not Reportable Toxic Granulation Not Reportable Toxic Vacuolation Not Reportable Dohle Bodies Not Reportable Pelger-Huet Anomaly Not Reportable Johanna Rods Not Reportable Platelet Estimate Appears decreased Clumped Platelets Not Reportable Plt Clumps, EDTA Not Reportable Large Platelets Not Reportable Giant Platelets Not Reportable Platelet Satelliting Not Reportable Plt Morphology Comment Not Reportable RBC Morphology Normal Dimorphic RBCs Not Reportable Polychromasia Not Reportable Hypochromasia Not Reportable Poikilocytosis Not Reportable Anisocytosis Not Reportable Microcytosis Not Reportable Macrocytosis Not Reportable Spherocytes Not Reportable Pappenheimer Bodies Not Reportable Sickle Cells Not Reportable Target Cells Not Reportable Tear Drop Cells Not Reportable Ovalocytes Not Reportable Helmet Cells Not Reportable [employer] Bodies Not Reportable [place] Rings Not Reportable Rosita Cells Not Reportable Bite Cells Not Reportable Crenated Cell Not Reportable Elliptocytes Not Reportable Acanthocytes (Spur) Not Reportable Rouleaux Not Reportable Hemoglobin C Crystals Not Reportable Schistocytes Not Reportable Malaria parasites Not Reportable Phil Bodies Not Reportable Hem Pathologist Commnt No PT INR APTT Fibrinogen 60 L* D-Dimer > 45695 H POC ABG pH POC ABG pCO2 POC ABG pO2 POC ABG HCO3 POC ABG Total CO2 POC ABG O2 Sat POC ABG Base Excess FiO2 Sodium Potassium Chloride Carbon Dioxide Anion Gap BUN Creatinine Estimated GFR BUN/Creatinine Ratio Glucose POC Glucose 221 H Lactic Acid Calcium Magnesium Total Bilirubin AST ALT Alkaline Phosphatase Lactate Dehydrogenase Total Creatine Kinase CK-MB (CK-2) CK-MB (CK-2) Rel Index Troponin T Total Protein Albumin Albumin/Globulin Ratio Triglycerides Cholesterol LDL Cholesterol Direct HDL Cholesterol Cholesterol/HDL Ratio TSH Free T4 Salicylates Acetaminophen Valproic Acid [place] Plasma/Serum Alcohol Hepatitis A IgM Ab Hep Bs Antigen Hep B Core IgM Ab Hepatitis C Antibody HIV 1&2 Antibody Rapid HIV P24 Antigen Blood Type 03/09/19 03/09/19 03/09/19 21:25 21:25 21:51 WBC RBC Hgb Hct MCV MCH MCHC RDW Plt Count Lymph % (Auto) [place] % (Auto) Eos % (Auto) Baso % (Auto) Lymph # [place] # Eos # Baso # Add Manual Diff Total Counted Seg Neutrophils % Seg Neuts % (Manual) Band Neutrophils % Lymphocytes % (Manual) Reactive Lymphs % (Man) Monocytes % (Manual) Eosinophils % (Manual) Basophils % (Manual) Metamyelocytes % Myelocytes % Promyelocytes % Blast Cells % Nucleated RBC % Seg Neutrophils # Seg Neutrophils # Man Band Neutrophils # Lymphocytes # (Manual) Abs React Lymphs (Man) Monocytes # (Manual) Eosinophils # (Manual) Basophils # (Manual) Metamyelocytes # Myelocytes # Promyelocytes # Blast Cells # WBC Morphology Hypersegmented Neuts Hyposegmented Neuts Hypogranular Neuts Smudge Cells Toxic Granulation Toxic Vacuolation Dohle Bodies Pelger-Huet Anomaly Johanna Rods Platelet Estimate Clumped Platelets Plt Clumps, EDTA Large Platelets Giant Platelets Platelet Satelliting Plt Morphology Comment RBC Morphology Dimorphic RBCs Polychromasia Hypochromasia Poikilocytosis Anisocytosis Microcytosis Macrocytosis Spherocytes Pappenheimer Bodies Sickle Cells Target Cells Tear Drop Cells Ovalocytes Helmet Cells [employer] Bodies [place] Rings Rosita Cells Bite Cells Crenated Cell Elliptocytes Acanthocytes (Spur) Rouleaux Hemoglobin C Crystals Schistocytes Malaria parasites Phil Bodies Hem Pathologist Commnt PT 38.3 H INR 3.98 H APTT 115.3 H* Fibrinogen D-Dimer POC ABG pH 7.286 L POC ABG pCO2 39.4 POC ABG pO2 POC ABG HCO3 18.7 POC ABG Total CO2 20 POC ABG O2 Sat 100 POC ABG Base Excess -8 FiO2 100 Sodium Potassium Chloride Carbon Dioxide Anion Gap BUN Creatinine Estimated GFR BUN/Creatinine Ratio Glucose POC Glucose Lactic Acid Calcium Magnesium Total Bilirubin AST ALT Alkaline Phosphatase Lactate Dehydrogenase Total Creatine Kinase CK-MB (CK-2) CK-MB (CK-2) Rel Index Troponin T Total Protein Albumin Albumin/Globulin Ratio Triglycerides Cholesterol LDL Cholesterol Direct HDL Cholesterol Cholesterol/HDL Ratio TSH Free T4 Salicylates Acetaminophen Valproic Acid [place] Plasma/Serum Alcohol Hepatitis A IgM Ab Hep Bs Antigen Hep B Core IgM Ab Hepatitis C Antibody HIV 1&2 Antibody Rapid Non react HIV P24 Antigen Non react Blood Type 03/09/19 03/09/19 03/09/19 22:20 22:20 22:20 WBC RBC Hgb Hct MCV MCH MCHC RDW Plt Count Lymph % (Auto) [place] % (Auto) Eos % (Auto) Baso % (Auto) Lymph # [place] # Eos # Baso # Add Manual Diff Total Counted Seg Neutrophils % Seg Neuts % (Manual) Band Neutrophils % Lymphocytes % (Manual) Reactive Lymphs % (Man) Monocytes % (Manual) Eosinophils % (Manual) Basophils % (Manual) Metamyelocytes % Myelocytes % Promyelocytes % Blast Cells % Nucleated RBC % Seg Neutrophils # Seg Neutrophils # [place] Neutrophils # Lymphocytes # (Manual) Abs React Lymphs (Man) Monocytes # (Manual) Eosinophils # (Manual) Basophils # (Manual) Metamyelocytes # Myelocytes # Promyelocytes # Blast Cells # WBC Morphology Hypersegmented Neuts Hyposegmented Neuts Hypogranular Neuts Smudge Cells Toxic Granulation Toxic Vacuolation Dohle Bodies Pelger-Huet Anomaly Johanna Rods Platelet Estimate Clumped Platelets Plt Clumps, EDTA Large Platelets Giant Platelets Platelet Satelliting Plt Morphology Comment RBC Morphology Dimorphic RBCs Polychromasia Hypochromasia Poikilocytosis Anisocytosis Microcytosis Macrocytosis Spherocytes Pappenheimer Bodies Sickle Cells Target Cells Tear Drop Cells Ovalocytes Helmet Cells [employer] Bodies [place] Rings Rosita Cells Bite Cells Crenated Cell Elliptocytes Acanthocytes (Spur) Rouleaux Hemoglobin C Crystals Schistocytes Malaria parasites Phil Bodies Hem Pathologist Commnt PT INR APTT Fibrinogen D-Dimer POC ABG pH POC ABG pCO2 POC ABG pO2 POC ABG HCO3 POC ABG Total CO2 POC ABG O2 Sat POC ABG Base Excess FiO2 Sodium 150 H Potassium 3.4 L Chloride 115.1 H Carbon Dioxide 18 L Anion Gap 20 BUN 11 Creatinine 1.4 Estimated GFR > 60 BUN/Creatinine Ratio 8 Glucose 216 H POC Glucose Lactic Acid Calcium 8.4 Magnesium 1.60 L Total Bilirubin 0.80 AST 283 H ALT 113 H Alkaline Phosphatase 104 Lactate Dehydrogenase Total Creatine Kinase 691 H CK-MB (CK-2) CK-MB (CK-2) Rel Index Troponin T 2.890 H* Total Protein 6.1 L Albumin 3.6 L Albumin/Globulin Ratio 1.4 Triglycerides Cholesterol LDL Cholesterol Direct HDL Cholesterol Cholesterol/HDL Ratio TSH 2.950 Free T4 1.01 Salicylates Acetaminophen Valproic Acid [place] Plasma/Serum Alcohol Hepatitis A IgM Ab Hep Bs Antigen Hep B Core IgM Ab Hepatitis C Antibody HIV 1&2 Antibody Rapid HIV P24 Antigen Blood Type 03/09/19 03/09/19 03/09/19 22:20 22:20 22:20 WBC RBC Hgb Hct MCV MCH MCHC RDW Plt Count Lymph % (Auto) [place] % (Auto) Eos % (Auto) Baso % (Auto) Lymph # [place] # Eos # Baso # Add Manual Diff Total Counted Seg Neutrophils % Seg Neuts % (Manual) Band Neutrophils % Lymphocytes % (Manual) Reactive Lymphs % (Man) Monocytes % (Manual) Eosinophils % (Manual) Basophils % (Manual) Metamyelocytes % Myelocytes % Promyelocytes % Blast Cells % Nucleated RBC % Seg Neutrophils # Seg Neutrophils # Man Band Neutrophils # Lymphocytes # (Manual) Abs React Lymphs (Man) Monocytes # (Manual) Eosinophils # (Manual) Basophils # (Manual) Metamyelocytes # Myelocytes # Promyelocytes # Blast Cells # WBC Morphology Hypersegmented Neuts Hyposegmented Neuts Hypogranular Neuts Smudge Cells Toxic Granulation Toxic Vacuolation Dohle Bodies Pelger-Huet Anomaly Johanna Rods Platelet Estimate Clumped Platelets Plt Clumps, EDTA Large Platelets Giant Platelets Platelet Satelliting Plt Morphology Comment RBC Morphology Dimorphic RBCs Polychromasia Hypochromasia Poikilocytosis Anisocytosis Microcytosis Macrocytosis Spherocytes Pappenheimer Bodies Sickle Cells Target Cells Tear Drop Cells Ovalocytes Helmet Cells [employer] Bodies [place] Rings [place] Cells Bite Cells Crenated Cell Elliptocytes Acanthocytes (Spur) Rouleaux Hemoglobin C Crystals Schistocytes Malaria parasites Phil Bodies Hem Pathologist Commnt PT INR APTT Fibrinogen D-Dimer POC ABG pH POC ABG pCO2 POC ABG pO2 POC ABG HCO3 POC ABG Total CO2 POC ABG O2 Sat POC ABG Base Excess FiO2 Sodium Potassium Chloride Carbon Dioxide Anion Gap BUN Creatinine Estimated GFR BUN/Creatinine Ratio Glucose POC Glucose Lactic Acid Calcium Magnesium Total Bilirubin AST ALT Alkaline Phosphatase Lactate Dehydrogenase Total Creatine Kinase CK-MB (CK-2) CK-MB (CK-2) Rel Index Troponin T Total Protein Albumin Albumin/Globulin Ratio Triglycerides Cholesterol LDL Cholesterol Direct HDL Cholesterol Cholesterol/HDL Ratio TSH Free T4 Salicylates < 0.3 L Acetaminophen < 5.0 L Valproic Acid < 2.8 L [place] 0.1 Plasma/Serum Alcohol < 0.01 Hepatitis A IgM Ab Hep Bs Antigen Hep B Core IgM Ab Hepatitis C Antibody HIV 1&2 Antibody Rapid HIV P24 Antigen Blood Type 03/09/19 03/09/19 03/09/19 22:20 22:20 23:20 WBC RBC Hgb Hct MCV MCH MCHC RDW Plt Count Lymph % (Auto) [place] % (Auto) Eos % (Auto) Baso % (Auto) Lymph # [place] # Eos # Baso # Add Manual Diff Total Counted Seg Neutrophils % Seg Neuts % (Manual) Band Neutrophils % Lymphocytes % (Manual) Reactive Lymphs % (Man) Monocytes % (Manual) Eosinophils % (Manual) Basophils % (Manual) Metamyelocytes % Myelocytes % Promyelocytes % Blast Cells % Nucleated RBC % Seg Neutrophils # Seg Neutrophils # [place] Band Neutrophils # Lymphocytes # (Manual) Abs React Lymphs (Man) Monocytes # (Manual) Eosinophils # (Manual) Basophils # (Manual) Metamyelocytes # Myelocytes # Promyelocytes # Blast Cells # WBC Morphology Hypersegmented Neuts Hyposegmented Neuts Hypogranular Neuts Smudge Cells Toxic Granulation Toxic Vacuolation Dohle Bodies Pelger-Huet Anomaly Johanna Rods Platelet Estimate Clumped Platelets Plt Clumps, EDTA Large Platelets Giant Platelets Platelet Satelliting Plt Morphology Comment RBC Morphology Dimorphic RBCs Polychromasia Hypochromasia Poikilocytosis Anisocytosis Microcytosis Macrocytosis Spherocytes Pappenheimer Bodies Sickle Cells Target Cells Tear Drop Cells Ovalocytes Helmet Cells [employer] Bodies [place] Rings [place] Cells Bite Cells Crenated Cell Elliptocytes Acanthocytes (Spur) Rouleaux Hemoglobin C Crystals Schistocytes Malaria parasites Phil Bodies Hem Pathologist Commnt PT INR APTT Fibrinogen D-Dimer POC ABG pH POC ABG pCO2 POC ABG pO2 POC ABG HCO3 POC ABG Total CO2 POC ABG O2 Sat POC ABG Base Excess FiO2 Sodium Potassium Chloride Carbon Dioxide Anion Gap BUN Creatinine Estimated GFR BUN/Creatinine Ratio Glucose POC Glucose Lactic Acid 4.50 H* Calcium Magnesium Total Bilirubin AST ALT Alkaline Phosphatase Lactate Dehydrogenase 1167 H Total Creatine Kinase CK-MB (CK-2) CK-MB (CK-2) Rel Index Troponin T Total Protein Albumin Albumin/Globulin Ratio Triglycerides Cholesterol LDL Cholesterol Direct HDL Cholesterol Cholesterol/HDL Ratio TSH Free T4 Salicylates Acetaminophen Valproic Acid [place] Plasma/Serum Alcohol Hepatitis A IgM Ab Non-reactive Hep Bs Antigen Non-reactive Hep B Core IgM Ab Non-reactive Hepatitis C Antibody Non-reactive HIV 1&2 Antibody Rapid HIV P24 Antigen Blood Type 03/10/19 03/10/19 03/10/19 01:45 01:50 03:43 WBC RBC Hgb Hct MCV MCH MCHC RDW Plt Count Lymph % (Auto) [place] % (Auto) Eos % (Auto) Baso % (Auto) Lymph # [place] # Eos # Baso # Add Manual Diff Total Counted Seg Neutrophils % Seg Neuts % (Manual) Band Neutrophils % Lymphocytes % (Manual) Reactive Lymphs % (Man) Monocytes % (Manual) Eosinophils % (Manual) Basophils % (Manual) Metamyelocytes % Myelocytes % Promyelocytes % Blast Cells % Nucleated RBC % Seg Neutrophils # Seg Neutrophils # [place] Neutrophils # Lymphocytes # (Manual) Abs React Lymphs (Man) Monocytes # (Manual) Eosinophils # (Manual) Basophils # (Manual) Metamyelocytes # Myelocytes # Promyelocytes # Blast Cells # WBC Morphology Hypersegmented Neuts Hyposegmented Neuts Hypogranular Neuts Smudge Cells Toxic Granulation Toxic Vacuolation Dohle Bodies Pelger-Huet Anomaly Johanna Rods Platelet Estimate Clumped Platelets Plt Clumps, EDTA Large Platelets Giant Platelets Platelet Satelliting Plt Morphology Comment RBC Morphology Dimorphic RBCs Polychromasia Hypochromasia Poikilocytosis Anisocytosis Microcytosis Macrocytosis Spherocytes Pappenheimer Bodies Sickle Cells Target Cells Tear Drop Cells Ovalocytes Helmet Cells [employer] Bodies [place] Rings Rosita Cells Bite Cells Crenated Cell Elliptocytes Acanthocytes (Spur) Rouleaux Hemoglobin C Crystals Schistocytes Malaria parasites Phil Bodies Hem Pathologist Commnt PT INR APTT Fibrinogen D-Dimer POC ABG pH 7.240 L POC ABG pCO2 POC ABG pO2 91 POC ABG HCO3 12.5 POC ABG Total CO2 13 POC ABG O2 Sat 96 POC ABG Base Excess -15 FiO2 50 Sodium Potassium Chloride Carbon Dioxide Anion Gap BUN Creatinine Estimated GFR BUN/Creatinine Ratio Glucose POC Glucose Lactic Acid 2.90 H* Calcium Magnesium 2.00 Total Bilirubin AST ALT Alkaline Phosphatase Lactate Dehydrogenase Total Creatine Kinase 1019 H CK-MB (CK-2) 23.6 H CK-MB (CK-2) Rel Index 2.3 Troponin T 2.250 H* D Total Protein Albumin Albumin/Globulin Ratio Triglycerides 148 Cholesterol 149 LDL Cholesterol Direct 56 HDL Cholesterol 23 L Cholesterol/HDL Ratio 6.47 TSH Free T4 Salicylates Acetaminophen Valproic Acid [place] Plasma/Serum Alcohol Hepatitis A IgM Ab Hep Bs Antigen Hep B Core IgM Ab Hepatitis C Antibody HIV 1&2 Antibody Rapid HIV P24 Antigen Blood Type 03/10/19 03/10/19 03/10/19 05:57 05:57 06:00 WBC 20.1 H RBC 4.58 Hgb 14.5 Hct 41.8 D MCV 91 MCH 32 MCHC 35 H RDW 13.6 Plt Count 14 L* Lymph % (Auto) Verification Engineer [place] % (Auto) Verification Engineer Eos % (Auto) Verification Engineer Baso % (Auto) Verification Engineer Lymph # Verification Engineer [place] # Verification Engineer Eos # Verification Engineer Baso # Verification Engineer Add Manual Diff Complete Total Counted 100 Seg Neutrophils % Verification Engineer Seg Neuts % (Manual) 75.0 H Band Neutrophils % 6.0 Lymphocytes % (Manual) 14.0 Reactive Lymphs % (Man) 1.0 Monocytes % (Manual) 3.0 Eosinophils % (Manual) 0 Basophils % (Manual) 0 Metamyelocytes % 1.0 Myelocytes % 0 Promyelocytes % 0 Blast Cells % 0 Nucleated RBC % 8.0 H Seg Neutrophils # Verification Engineer Seg Neutrophils # Man 14.4 H Band Neutrophils # 1.2 Lymphocytes # (Manual) 2.7 Abs React Lymphs (Man) 0.2 Monocytes # (Manual) 0.6 Eosinophils # (Manual) 0.0 Basophils # (Manual) 0.0 Metamyelocytes # 0.2 Myelocytes # 0.0 Promyelocytes # 0.0 Blast Cells # 0.0 WBC Morphology Not Reportable Hypersegmented Neuts Not Reportable Hyposegmented Neuts Not Reportable Hypogranular Neuts Not Reportable Smudge Cells Not Reportable Toxic Granulation Not Reportable Toxic Vacuolation Not Reportable Dohle Bodies Not Reportable Pelger-Huet Anomaly Not Reportable Johanna Rods Not Reportable Platelet Estimate Consistent w auto Clumped Platelets Not Reportable Plt Clumps, EDTA Not Reportable Large Platelets Not Reportable Giant Platelets Not Reportable Platelet Satelliting Not Reportable Plt Morphology Comment Not Reportable RBC Morphology Not Reportable Dimorphic RBCs Not Reportable Polychromasia Not Reportable Hypochromasia Not Reportable Poikilocytosis 1+ Anisocytosis 1+ Microcytosis Not Reportable Macrocytosis Not Reportable Spherocytes Not Reportable Pappenheimer Bodies Not Reportable Sickle Cells Not Reportable Target Cells Not Reportable Tear Drop Cells Not Reportable Ovalocytes Not Reportable Helmet Cells Not Reportable [employer] Bodies Not Reportable [place] Rings Not Reportable Rosita Cells Not Reportable Bite Cells Not Reportable Crenated Cell Not Reportable Elliptocytes Not Reportable Acanthocytes (Spur) Not Reportable Rouleaux Not Reportable Hemoglobin C Crystals Not Reportable Schistocytes Not Reportable Malaria parasites Not Reportable Phil Bodies Not Reportable Hem Pathologist Commnt No PT 57.2 H INR 6.63 H* APTT > 240.0 H* Fibrinogen D-Dimer POC ABG pH POC ABG pCO2 POC ABG pO2 POC ABG HCO3 POC ABG Total CO2 POC ABG O2 Sat POC ABG Base Excess FiO2 Sodium 151 H Potassium 4.5 D Chloride 124.3 H Carbon Dioxide 12 L Anion Gap 19 BUN 11 Creatinine 1.3 Estimated GFR > 60 BUN/Creatinine Ratio 8 Glucose TNR POC Glucose Lactic Acid Calcium 7.2 L Magnesium Total Bilirubin 1.70 H AST 1257 H ALT 528 H Alkaline Phosphatase 95 Lactate Dehydrogenase Total Creatine Kinase 1123 H CK-MB (CK-2) 27.2 H CK-MB (CK-2) Rel Index 2.4 Troponin T 2.310 H* Total Protein 4.9 L Albumin 2.8 L Albumin/Globulin Ratio 1.3 Triglycerides Cholesterol LDL Cholesterol Direct HDL Cholesterol Cholesterol/HDL Ratio TSH Free T4 Salicylates Acetaminophen Valproic Acid [place] Plasma/Serum Alcohol Hepatitis A IgM Ab Hep Bs Antigen Hep B Core IgM Ab Hepatitis C Antibody HIV 1&2 Antibody Rapid HIV P24 Antigen Blood Type 03/10/19 03/10/19 03/10/19 08:30 08:30 08:55 WBC 19.3 H RBC 4.47 Hgb 13.9 Hct 41.5 MCV 93 MCH 31 MCHC 34 RDW 13.8 Plt Count 10 L* Lymph % (Auto) Verification Engineer [place] % (Auto) Verification Engineer Eos % (Auto) Verification Engineer Baso % (Auto) Verification Engineer Lymph # Verification Engineer [place] # Verification Engineer Eos # Verification Engineer Baso # Verification Engineer Add Manual Diff Complete Total Counted 100 Seg Neutrophils % Verification Engineer Seg Neuts % (Manual) 77.0 H Band Neutrophils % 12.0 Lymphocytes % (Manual) 5.0 L Reactive Lymphs % (Man) 0 Monocytes % (Manual) 6.0 Eosinophils % (Manual) 0 Basophils % (Manual) 0 Metamyelocytes % 0 Myelocytes % 0 Promyelocytes % 0 Blast Cells % 0 Nucleated RBC % 8.0 H Seg Neutrophils # Verification Engineer Seg Neutrophils # Man 14.9 H Band Neutrophils # 2.3 Lymphocytes # (Manual) 1.0 L Abs React Lymphs (Man) 0.0 Monocytes # (Manual) 1.2 H Eosinophils # (Manual) 0.0 Basophils # (Manual) 0.0 Metamyelocytes # 0.0 Myelocytes # 0.0 Promyelocytes # 0.0 Blast Cells # 0.0 WBC Morphology Not Reportable Hypersegmented Neuts Not Reportable Hyposegmented Neuts Not Reportable Hypogranular Neuts Not Reportable Smudge Cells Not Reportable Toxic Granulation Not Reportable Toxic Vacuolation Not Reportable Dohle Bodies Not Reportable Pelger-Huet Anomaly Not Reportable Johanna Rods Not Reportable Platelet Estimate Consistent w auto Clumped Platelets Not Reportable Plt Clumps, EDTA Not Reportable Large Platelets Not Reportable Giant Platelets Not Reportable Platelet Satelliting Not Reportable Plt Morphology Comment Not Reportable RBC Morphology Not Reportable Dimorphic RBCs Not Reportable Polychromasia Not Reportable Hypochromasia Not Reportable Poikilocytosis Not Reportable Anisocytosis Not Reportable Microcytosis Not Reportable Macrocytosis Not Reportable Spherocytes Not Reportable Pappenheimer Bodies Not Reportable Sickle Cells Not Reportable Target Cells Not Reportable Tear Drop Cells Not Reportable Ovalocytes Not Reportable Helmet Cells Not Reportable [employer] Bodies Not Reportable Sumner Rings Not Reportable Rosita Cells 3+ Bite Cells Not Reportable Crenated Cell Not Reportable Elliptocytes Not Reportable Acanthocytes (Spur) Not Reportable Rouleaux Not Reportable Hemoglobin C Crystals Not Reportable Schistocytes Not Reportable Malaria parasites Not Reportable Phil Bodies Not Reportable Hem Pathologist Commnt No PT INR APTT Fibrinogen D-Dimer POC ABG pH POC ABG pCO2 POC ABG pO2 POC ABG HCO3 POC ABG Total CO2 POC ABG O2 Sat POC ABG Base Excess FiO2 Sodium 151 H Potassium 3.6 Chloride 126.9 H Carbon Dioxide 8 L* Anion Gap 20 BUN 10 Creatinine 1.1 Estimated GFR > 60 BUN/Creatinine Ratio 9 Glucose 30 L* POC Glucose Lactic Acid 4.40 H* Calcium 6.1 L D Magnesium Total Bilirubin 1.60 H AST 1494 H ALT 615 H Alkaline Phosphatase 79 Lactate Dehydrogenase Total Creatine Kinase CK-MB (CK-2) CK-MB (CK-2) Rel Index Troponin T Total Protein 3.9 L D Albumin 2.3 L Albumin/Globulin Ratio 1.4 Triglycerides Cholesterol LDL Cholesterol Direct HDL Cholesterol Cholesterol/HDL Ratio TSH Free T4 Salicylates Acetaminophen Valproic Acid [place] Plasma/Serum Alcohol Hepatitis A IgM Ab Hep Bs Antigen Hep B Core IgM Ab Hepatitis C Antibody HIV 1&2 Antibody Rapid HIV P24 Antigen Blood Type 03/10/19 03/10/19 03/10/19 11:12 Unknown Unknown WBC RBC Hgb Hct MCV MCH MCHC RDW Plt Count Lymph % (Auto) [place] % (Auto) Eos % (Auto) Baso % (Auto) Lymph # [place] # Eos # Baso # Add Manual Diff Total Counted Seg Neutrophils % Seg Neuts % (Manual) Band Neutrophils % Lymphocytes % (Manual) Reactive Lymphs % (Man) Monocytes % (Manual) Eosinophils % (Manual) Basophils % (Manual) Metamyelocytes % Myelocytes % Promyelocytes % Blast Cells % Nucleated RBC % Seg Neutrophils # Seg Neutrophils # Man Band Neutrophils # Lymphocytes # (Manual) Abs React Lymphs (Man) Monocytes # (Manual) Eosinophils # (Manual) Basophils # (Manual) Metamyelocytes # Myelocytes # Promyelocytes # Blast Cells # WBC Morphology Hypersegmented Neuts Hyposegmented Neuts Hypogranular Neuts Smudge Cells Toxic Granulation Toxic Vacuolation Dohle Bodies Pelger-Huet Anomaly Johanna Rods Platelet Estimate Clumped Platelets Plt Clumps, EDTA Large Platelets Giant Platelets Platelet Satelliting Plt Morphology Comment RBC Morphology Dimorphic RBCs Polychromasia Hypochromasia Poikilocytosis Anisocytosis Microcytosis Macrocytosis Spherocytes Pappenheimer Bodies Sickle Cells Target Cells Tear Drop Cells Ovalocytes Helmet Cells [employer] Bodies [place] Rings [place] Cells Bite Cells Crenated Cell Elliptocytes Acanthocytes (Spur) Rouleaux Hemoglobin C Crystals Schistocytes Malaria parasites Phil Bodies Hem Pathologist Commnt PT INR APTT Fibrinogen D-Dimer POC ABG pH 7.272 L POC ABG pCO2 POC ABG pO2 230 H POC ABG HCO3 10.4 POC ABG Total CO2 11 POC ABG O2 Sat 100 POC ABG Base Excess -17 FiO2 50 Sodium Potassium Chloride Carbon Dioxide Anion Gap BUN Creatinine Estimated GFR BUN/Creatinine Ratio Glucose POC Glucose Lactic Acid 5.10 H* Calcium Magnesium Total Bilirubin AST ALT Alkaline Phosphatase Lactate Dehydrogenase Total Creatine Kinase CK-MB (CK-2) CK-MB (CK-2) Rel Index Troponin T Total Protein Albumin Albumin/Globulin Ratio Triglycerides Cholesterol LDL Cholesterol Direct HDL Cholesterol Cholesterol/HDL Ratio TSH Free T4 Salicylates Acetaminophen Valproic Acid [place] Plasma/Serum Alcohol Hepatitis A IgM Ab Hep Bs Antigen Hep B Core IgM Ab Hepatitis C Antibody HIV 1&2 Antibody Rapid HIV P24 Antigen Blood Type O POSITIVE Assessment and Plan 1.GI bleed -temp 101.0 -lactic acid 4.40 -WBC 19.3 -H/H 13.9/41.5 -continue to monitor H/H and transfuse as needed -plt 10-trending down -INR 6.63-receiving FFP -PT 57.2, APTT >240, fibrinogen 60 -LFTs- T.kelsey 1.60, AST 1494, ALT 1615, alk phos 79 -acetaminophen <5.0, UDS negative, HIV and hepatitis panel negative -patient currently critically ill in ICU, unresponsive on vent and pressor support receiving cooling measures. Has noted bright red blood from NGT and liquid dark stool in rectal tube. 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
[2019-03-10] MEDS: DOXYCYCLINE HYCLATE 100 MG in NACL 0.9% 250ML 250 ML IV SCH (12:42)
--- NOTE | 2019-03-10 12:45 | Consultation ---
History of Present Illness Consult date: 03/10/19 Requesting physician: LUKE CORNELIUS History of present illness: PULMONARY/CCM CONSULT NOTE (Full dictation # [id number]) Please see dictated notes for full details Past History Past Medical History: No medical history Past Surgical History: No surgical history Social history: no significant social history. denies: alcohol abuse, IV drug use Family history: no significant family history (per family) Medications and Allergies Allergies Allergy/AdvReac Type Severity Reaction Status Date / Time No Known Allergies Allergy Verified 03/09/19 20:47 Home Medications Medication Instructions Recorded Confirmed Last Taken Type Unobtainable 03/09/19 03/09/19 Unknown History Active Meds: Active Medications Acetaminophen (Tylenol) 650 mg PO Q4H PRN PRN Reason: Fever >101 Fentanyl (Sublimaze) 50 mcg IV Q10MIN PRN PRN Reason: ANALGESIA Hydrophilic Ointment (Vaseline Lip Therapy) 1 applic TP Q2HR PRN PRN Reason: Dry Lips Fentanyl Citrate (Fentanyl Drip Premix) 2,000 mcg in 100 mls @ 4.082 mls/hr IV TITR SHAYLEE; Protocol Last Admin: 03/10/19 08:45 Dose: 2 mcg/kg/hr, 8.165 mls/hr Documented by: Midazolam HCl 100 mg/ Sodium (Chloride) 100 mls @ 2 mls/hr IV TITR SHAYLEE; Protocol Last Titration: 03/10/19 07:00 Dose: 0 mg/hr, 0 mls/hr Documented by: Pantoprazole Sodium 80 mg/ (Sodium Chloride) 100 mls @ 10 mls/hr IV DIRECT SHAYLEE Last Admin: 03/10/19 10:06 Dose: 8 mg/hr, 10 mls/hr Documented by: Acyclovir 800 mg/ Sodium (Chloride) 116 mls @ 100 mls/hr IV Q8HR SHAYLEE; Protocol Last Admin: 03/10/19 10:05 Dose: 100 mls/hr Documented by: Vasopressin 20 unit/ Sodium (Chloride) 101 mls @ 9.09 mls/hr IV TITR SHAYLEE; Protocol Last Admin: 03/10/19 02:39 Dose: 0.03 units/min, 9.09 mls/hr Documented by: Phenylephrine HCl 100 mg/ (Sodium Chloride) 100 mls @ 3 mls/hr IV TITR SHAYLEE; Protocol Last Titration: 03/10/19 11:16 Dose: 60 mcg/min, 3.6 mls/hr Documented by: Vancomycin HCl 1,250 mg/ (Sodium Chloride) 275 mls @ 166.667 mls/hr IV Q12HR SHAYLEE Last Admin: 03/10/19 10:34 Dose: 166.667 mls/hr Documented by: Sodium Bicarbonate 150 meq/ (Dextrose) 1,150 mls @ 42 mls/hr IV DIRECT SHAYLEE Last Infusion: 03/10/19 11:20 Dose: 150 mls/hr Documented by: Norepinephrine 8 mg/ Sodium (Chloride) 250 mls @ 3.75 mls/hr IV TITR SHAYLEE; Protocol Ceftriaxone Sodium (Rocephin/Ns 2 Gm/100 Ml) 2 gm in 100 mls @ 200 mls/hr IV Q12HR SHAYLEE; Protocol Metronidazole (Flagyl 500 Mg/100 Ml) 500 mg in 100 mls @ 100 mls/hr IV Q8HR SHAYLEE; Protocol Doxycycline Hyclate 100 mg/ (Sodium Chloride) 250 mls @ 250 mls/hr IV Q12HR SHAYLEE; Protocol Lorazepam (Ativan) 2 mg IV Q15MIN PRN PRN Reason: Seizures Midazolam HCl (Versed) 2 mg IV Q10MIN PRN PRN Reason: Sedation Multi-Ingred Cream/Lotion/Oil/Oint (Artificial Tears Ophth Oint) 1 applic OU Q4HR PRN PRN Reason: Dry Eye(s) Ondansetron HCl (Zofran) 4 mg IV Q8H PRN PRN Reason: Nausea And Vomiting Physical Examination Vital signs: Vital Signs Pulse Resp 178 H 29 H 03/09/19 20:08 03/09/19 20:08 Results - Laboratory Findings CBC and BMP: 03/10/19 08:30 03/10/19 08:30 ABG POC ABG pH 7.272 (7.35-7.45) L 03/10/19 11:12 POC ABG pO2 230 (80-105) H 03/10/19 11:12 POC ABG HCO3 10.4 (22-26 mml/L) 03/10/19 11:12 POC ABG Total CO2 11 (23-27mmol/L) 03/10/19 11:12 POC ABG O2 Sat 100 03/10/19 11:12 PT/INR, D-dimer PT 57.2 Sec. (12.2-14.9) H 03/10/19 05:57 INR 6.63 (0.87-1.13) H* 03/10/19 05:57 > 65538 ng/mlDDU (0-234) H 03/09/19 00:00 Abnormal lab findings: Abnormal Labs 03/09/19 03/09/19 03/09/19 00:00 20:14 21:25 WBC RBC 5.53 H Hgb 17.2 H Hct 50.3 H MCHC Plt Count 89 L Seg Neuts % (Manual) Lymphocytes % (Manual) 48.0 H Nucleated RBC % Seg Neutrophils # Man Lymphocytes # (Manual) Monocytes # (Manual) PT INR APTT Fibrinogen 60 L* D-Dimer > 38932 H POC ABG pH POC ABG pO2 Sodium Potassium Chloride Carbon Dioxide Glucose POC Glucose 221 H Lactic Acid Calcium Magnesium Total Bilirubin AST ALT Lactate Dehydrogenase Total Creatine Kinase CK-MB (CK-2) Troponin T Total Protein Albumin HDL Cholesterol Salicylates Acetaminophen Valproic Acid 03/09/19 03/09/19 03/09/19 21:25 21:51 22:20 WBC RBC Hgb Hct MCHC Plt Count Seg Neuts % (Manual) Lymphocytes % (Manual) Nucleated RBC % Seg Neutrophils # Man Lymphocytes # (Manual) Monocytes # (Manual) PT 38.3 H INR 3.98 H APTT 115.3 H* Fibrinogen D-Dimer POC ABG pH 7.286 L POC ABG pO2 Sodium 150 H Potassium 3.4 L Chloride 115.1 H Carbon Dioxide 18 L Glucose 216 H POC Glucose Lactic Acid Calcium Magnesium 1.60 L Total Bilirubin AST 283 H ALT 113 H Lactate Dehydrogenase Total Creatine Kinase 691 H CK-MB (CK-2) Troponin T 2.890 H* Total Protein 6.1 L Albumin 3.6 L HDL Cholesterol Salicylates Acetaminophen Valproic Acid 03/09/19 03/09/19 03/09/19 22:20 22:20 22:20 WBC RBC Hgb Hct MCHC Plt Count Seg Neuts % (Manual) Lymphocytes % (Manual) Nucleated RBC % Seg Neutrophils # Man Lymphocytes # (Manual) Monocytes # (Manual) PT INR APTT Fibrinogen D-Dimer POC ABG pH POC ABG pO2 Sodium Potassium Chloride Carbon Dioxide Glucose POC Glucose Lactic Acid Calcium Magnesium Total Bilirubin AST ALT Lactate Dehydrogenase 1167 H Total Creatine Kinase CK-MB (CK-2) Troponin T Total Protein Albumin HDL Cholesterol Salicylates < 0.3 L Acetaminophen < 5.0 L Valproic Acid < 2.8 L 03/09/19 03/10/19 03/10/19 23:20 01:45 01:50 WBC RBC Hgb Hct MCHC Plt Count Seg Neuts % (Manual) Lymphocytes % (Manual) Nucleated RBC % Seg Neutrophils # Man Lymphocytes # (Manual) Monocytes # (Manual) PT INR APTT Fibrinogen D-Dimer POC ABG pH POC ABG pO2 Sodium Potassium Chloride Carbon Dioxide Glucose POC Glucose Lactic Acid 4.50 H* 2.90 H* Calcium Magnesium Total Bilirubin AST ALT Lactate Dehydrogenase Total Creatine Kinase 1019 H CK-MB (CK-2) 23.6 H Troponin T 2.250 H* D Total Protein Albumin HDL Cholesterol 23 L Salicylates Acetaminophen Valproic Acid 03/10/19 03/10/19 03/10/19 03:43 05:57 05:57 WBC RBC Hgb Hct MCHC Plt Count Seg Neuts % (Manual) Lymphocytes % (Manual) Nucleated RBC % Seg Neutrophils # Man Lymphocytes # (Manual) Monocytes # (Manual) PT 57.2 H INR 6.63 H* APTT > 240.0 H* Fibrinogen D-Dimer POC ABG pH 7.240 L POC ABG pO2 Sodium 151 H Potassium Chloride 124.3 H Carbon Dioxide 12 L Glucose POC Glucose Lactic Acid Calcium 7.2 L Magnesium Total Bilirubin 1.70 H AST 1257 H ALT 528 H Lactate Dehydrogenase Total Creatine Kinase 1123 H CK-MB (CK-2) 27.2 H Troponin T 2.310 H* Total Protein 4.9 L Albumin 2.8 L HDL Cholesterol Salicylates Acetaminophen Valproic Acid 03/10/19 03/10/19 03/10/19 06:00 08:30 08:30 WBC 20.1 H 19.3 H RBC Hgb Hct MCHC 35 H Plt Count 14 L* 10 L* Seg Neuts % (Manual) 75.0 H 77.0 H Lymphocytes % (Manual) 5.0 L Nucleated RBC % 8.0 H 8.0 H Seg Neutrophils # Man 14.4 H 14.9 H Lymphocytes # (Manual) 1.0 L Monocytes # (Manual) 1.2 H PT INR APTT Fibrinogen D-Dimer POC ABG pH POC ABG pO2 Sodium 151 H Potassium Chloride 126.9 H Carbon Dioxide 8 L* Glucose 30 L* POC Glucose Lactic Acid Calcium 6.1 L D Magnesium Total Bilirubin 1.60 H AST 1494 H ALT 615 H Lactate Dehydrogenase Total Creatine Kinase CK-MB (CK-2) Troponin T Total Protein 3.9 L D Albumin 2.3 L HDL Cholesterol Salicylates Acetaminophen Valproic Acid 03/10/19 03/10/19 03/10/19 08:55 11:12 Unknown WBC RBC Hgb Hct MCHC Plt Count Seg Neuts % (Manual) Lymphocytes % (Manual) Nucleated RBC % Seg Neutrophils # Man Lymphocytes # (Manual) Monocytes # (Manual) PT INR APTT Fibrinogen D-Dimer POC ABG pH 7.272 L POC ABG pO2 230 H Sodium Potassium Chloride Carbon Dioxide Glucose POC Glucose Lactic Acid 4.40 H* 5.10 H* Calcium Magnesium Total Bilirubin AST ALT Lactate Dehydrogenase Total Creatine Kinase CK-MB (CK-2) Troponin T Total Protein Albumin HDL Cholesterol Salicylates Acetaminophen Valproic Acid
[2019-03-10 12:52] LABS: Bacteria,Urine 1+ /HPF (Negative); Bilirubin,Urine NEG (Negative); Blood,Urine LG (Negative); Color,Urine Yellow (Yellow); Mucus,Urine 1+ /HPF; Urobilinogen,Urine < 2.0 mg/dL (<2.0)
[2019-03-10 12:59] LABS: Amphetamine Screen,Urine PRESUMPTIVE NEGATIVE; Benzodiazepines Screen,Urine PRESUMPTIVE NEGATIVE; Cannabinoid Screen,Urine PRESUMPTIVE NEGATIVE; Cocaine Screen,Urine PRESUMPTIVE NEGATIVE; Methadone Screen,Urine PRESUMPTIVE NEGATIVE; Opiate Screen,Urine PRESUMPTIVE NEGATIVE
[2019-03-10] MEDS: FLAGYL 500 MG/100 ML 500 MG/100 ML BAG IV SCH ×2 (13:02→22:25)
[2019-03-10] MEDS: LEVOPHED 8 MG in NACL 0.9% 250ML 242 ML IV SCH ×2 (13:45→20:31)
[2019-03-10] MEDS ORDERED: NACL 0.9% IR ONE (13:45)
--- NOTE | 2019-03-10 13:47 | Ultrasound Report ---
ULTRASOUND ABDOMEN, COMPLETE INDICATION: LIVER FAILURE. COMPARISON: No relevant prior imaging study available. FINDINGS: Pancreas: No significant abnormality. Abdominal Aorta: No significant abnormality. IVC: No significant abnormality. Liver: Diffusely increased hepatic echogenicity which typically indicates hepatic steatosis. There is periportal edema.. Normal hepatopedal blood flow in the main portal vein. Gallbladder: Mild gallbladder wall edema, which is typically indicative of liver disease. No gallston es or gallbladder distention.. Bile ducts: No significant abnormality. Common bile duct measures 3 mm. Right kidney: 12.3 cm in length. No significant abnormality. Left kidney: 11.1 cm in length. No significant abnormality. Spleen: No significant abnormality. Free fluid: None. Additional Findings: None. IMPRESSION: 1. Diffusely increased hepatic echogenicity with periportal edema. Findings could reflect either hepa tic steatosis versus acute hepatitis. 2. The mild periportal edema in the gallbladder and bile ducts is also typically associated with acut e hepatitis. No gallstones or bile duct dilation. Signer Name: Sharan Alas MD Signed: 03/10/2019 1:42 PM Workstation Name: [id number]
[2019-03-10] MEDS ORDERED: IBUPROFEN PO PRN (14:00)
[2019-03-10] MEDS ORDERED: SODIUM BICARBONATE FEEDTUBE PRN (15:00)
[2019-03-10] MEDS ORDERED: PANCREAZE DR 10,500 UNIT FEEDTUBE PRN (15:00)
[2019-03-10] MEDS ORDERED: SIMPLE SYRUP FEEDTUBE PRN ×2 (15:00)
--- NOTE | 2019-03-10 15:43 | Electroencephalogram Report ---
Electroencephalogram EEG Date of exam: 03/10/19 History: Patient is a 23-year-old man with no past medical history who presents with altered mental status. Impression: Generalized slowing. No seizures or epileptiform discharges noted. Description: Electrodes were applied using paste technique and positions dictated by the international 1020 system of placement. Recording montage was in both referential and bipolar derivations. At the onset of this recording, the patient is lying supine. The background we note a 6 Hz, theta posterior dominant rhythm. Additionally, there is intermittent generalized beta activity. Intermittent photic stimulation was not performed. Hyperventilation was not performed. Throughout, the recording there are no epileptiform abnormalities, focal or lateralizing features, or significant interhemispheric findings. Interpretation: This routine EEG performed is abnormal secondary to above findings, and is consistent with bihemispheric dysfunction and encephalopathy. The above described finding of diffuse slowing is etiologically nonspecific and similar findings have been reported in case of toxic, metabolic, hypoxic ischemic, infectious, medication, sleep deprivation, dementia, postictal state, and other causes of diffuse and multifocal encephalopathy. The finding of intermittent generalized beta activity is likely due to medications that the patient is receiving.
[2019-03-10 18:28] LABS: Hematocrit 27.5 % (35.5-45.6); Hemoglobin 9.6 gm/dl (11.8-15.2); Mean Corpuscular HGB Conc 35 % (32-34); Mean Corpuscular Volume 90 fl (84-94); Red Blood Count 3.05 M/mm3 (3.65-5.03); Red Cell Distribution Width 13.7 % (13.2-15.2)
[2019-03-10 18:34] LABS: Platelet Count 63 K/mm3 (140-440)
[2019-03-10 19:55] LABS: INR > 17.67 (0.87-1.13)
[2019-03-10] MEDS ORDERED: VITAMIN K (ADULT ONLY) 10 MG in NACL 0.9% 50 ML IV ONE (20:15)
[2019-03-10] MEDS: ROCEPHIN/NS 2 GM/100 ML 2 GM/100 ML BAG IV SCH (22:24)
--- NOTE | 2019-03-10 22:29 | Event Note ---
Date: 03/10/19 [id number]
[2019-03-11] MEDS: VANCOMYCIN 1,250 MG in NACL 0.9% 250ML 250 ML IV SCH (00:40)
[2019-03-11] MEDS: DOXYCYCLINE HYCLATE 100 MG in NACL 0.9% 250ML 250 ML IV SCH ×2 (00:40→10:58)
--- NOTE | 2019-03-11 01:13 | Consultation ---
PULMONARY CRITICAL CARE CONSULTATION CONSULTING PHYSICIAN: Dr. Odonnell. REASON FOR CONSULTATION: Severe sepsis, DIC, acute hypoxemic respiratory failure, on mechanical ventilatory support. CHIEF COMPLAINT AND HISTORY OF PRESENT ILLNESS: The patient is a 23-year-old male with past medical history according to the family not significant for anything, was brought into the ER by emergency medical services for altered mental status. His sister says his last known well time was about 3-4 days before presentation. At that time, he started complaining of flu-like symptoms, really just did not feel well, could not really place a hand on what was going on. He was having fevers. It seems he took some [id number] antipyretic and felt better. However, on the day of presentation, he reportedly was not acting himself around the house and then came upstairs, called for help and was found essentially with altered mental status. In the ER, he was diaphoretic, he was foaming at the mouth, he was not convulsing, he was tachycardic and he was in an SVT that did not respond to adenosine or cardioversion. He was also found with a rectal temperature of 106.6 degrees Fahrenheit. They do mention that he was taking [id number] antipyretics for a few days about 3-4 days and they are not sure exactly what he was taking. In the Emergency Room, he required endotracheal intubation. He was septic. Intraosseous device was place and he was transferred up to the Intensive Care Unit. He was reportedly bleeding at the nose and at the mouth. There was a question of a possible GI bleed. When I stopped by to see him, he remained on mechanical ventilatory support. He was on multiple vasopressors. He was on vasopressin maxed out at 0.03 units per minute. For sepsis, he was on Levophed drip at 30 mcg per minute and he was on Guanaco-Synephrine drip at 100 mcg per minute. He was able to respond by shaking his head and denied any pain. I do not have any history of vomiting or overt aspiration. With regards to the patient's tobacco use/abuse history, family describes him as a nonsmoker. They deny any prior episodes. They deny any recent travel out of the [facility], the [place] area. They denied any exposure to rat droppings. They deny any pets at home. They deny any hunting trips or any skinning of live animals or killing of live animals. This really is as much of the history of presentation as I have. PAST MEDICAL HISTORY: They deny. PAST SURGICAL HISTORY: Unknown. MEDICATIONS: He was on at the time I stopped by to see him, according to the medication administration record included the following: Tylenol 650 mg p.o. q.4 hours p.r.n. fever greater than 101, acyclovir 800 mg IV q.8 hours, Rocephin 1 gram IV daily, fentanyl drip was going at 2 mcg/kg per hour, p.r.n. Ativan for seizures 2 mg IV q.15 minutes, p.r.n. Versed 2 mg IV q.10 minutes for sedation, Versed drip had been ordered at 2 mg per hour, Zofran 4 mg IV q.8 hours p.r.n. nausea and vomiting, Protonix drip was going at 8 mg per hour. He was just about to begin a sodium bicarbonate drip 3 amps of sodium bicarbonate per liter of D5W at 42 mL per hour. He was on vancomycin 1.25 g IV q.12 hours. ALLERGIES: No known drug allergies. DIET: Well-built gentleman. Family denies acute weight loss or gain in the preceding few weeks to months. FAMILY AND SOCIAL HISTORY: Apparently lives in the community. They deny alcohol, tobacco, or illicit drug use or abuse. Family history, otherwise noncontributory. No prior similar symptoms or signs. REVIEW OF SYSTEMS: Difficult to obtain secondary to the patient's medical and mental condition. Since he has been in the hospital though, no gross hematochezia. I believe there was a question of melena type stools. No new onset focal weakness. No witnessed seizures. Family denied any prior symptoms of polydipsia or polyuria. They denied any complaints of heat or cold intolerance. They denied any prior rash on his body prior to coming to the hospital. They denied any history of insect bites. They denied any periods of unexplained sadness and/or elation as may be consistent with clinical depression or reza. Complete 13-system review of systems was obtained as best as I could. Pertinent positives and/or negatives as in body of history above, otherwise are noncontributory. PHYSICAL EXAMINATION: VITAL SIGNS: At presentation in the Emergency Room, he had a temperature 106.6 degrees rectally Fahrenheit, pulse of 178, respiratory rate of 29, blood pressure was 137/78, O2 sats were 100%, inspired oxygen concentration at that time was not recorded. When I stopped by to see him, O2 sats were 100% that was on 50% FiO2, assist control mode of ventilation, I believe a rate of 24, tidal volume 420, PEEP of 6. GENERAL: He is a young looking male with facial puffiness and bleeding around the left side of the neck and mouth. On the mechanical ventilator with mild patient ventilator dyssynchrony. HEAD, EYES, EARS, NOSE AND THROAT: He was anicteric, no conjunctival erythema. Oropharynx was moist. Endotracheal tube was taped at the lips, tube tip was taped at the lips around 24 cm. No gross jugular venous distention. He did have generalized swelling to the face. NECK: Grossly, there were no palpable lymph nodes in the supraclavicular or submandibular lymph node chains and no lymphadenopathy in the axillary lymph node chains. LUNGS: Auscultation of both lung iniguez was unremarkable. Lungs were clear bilaterally. Good bilateral air movement. HEART: Heart sounds 1 and 2 are heard, regular rate and rhythm at the time of my evaluation without overt rubs or murmurs. The pulse was around 104. ABDOMEN: Soft, full, bowel sounds are positive, but hypoactive. He was nontender, no palpable hepatosplenomegaly. EXTREMITIES: Without overt digital clubbing or cyanosis, no significant bipedal edema. He had intraosseous device in the right upper tibial bone. Pedal pulses are palpable bilaterally and strong. NEUROLOGIC: Pupils were equal, round, about 4 mm, reactive to light. Extraocular muscle movements could not be assessed. He had spontaneous movements to all 4 extremities. SKIN: The skin was of normal turgor. He was bleeding really not from the skin, but from around the mouth. No petechial hemorrhages or stigmata of liver disease. No spider nevi were seen. PSYCHIATRIC: From a psychiatric standpoint, difficult to evaluate, but his mood appeared appropriate with a normal affect. LABORATORY DATA: From my review are as follows: Admission white cell count 6600, hemoglobin 17.2, hematocrit 89, no band forms, 48% lymphocytes at presentation. INR was 3.98 at presentation. Fibrinogen was low at 60. D-dimer was greater than 10,000. Arterial blood gas showed a pH of 7.29, pCO2 of 39, pO2 was not reported at initial presentation. Most recent gas before I came in showed a pH of 7.24, pCO2 of 44, pO2 of 91 that was on 50% on the above-mentioned vent settings. Serum sodium was 150 at presentation with a potassium of 3.4, chloride 115, bicarbonate 18, BUN 11, creatinine 1.4, glucose 221. Lactic acid level was 4.5. AST was 283, ALT 113. LDH was 1167. CPK 691. Troponin was 2.89 at presentation. Magnesium was low at 1.6. Aspirin, Tylenol, Depakote, lithium, alcohol levels all within expected range. Hepatitis screen was negative. Troponin is trending around 2.31 now. AST is up to 1494, ALT is up to 615. Lactic acid is at 4.4. Serum bicarbonate is down to 8. White count is now 19,300, platelet count is 10. Blood cultures, no growth to date. A CT scan of the head was done at presentation, it was unremarkable, mild fluid in the maxillary sinus. A CT scan of the abdomen and pelvis was also done, findings consistent with gastroenteritis, no bowel obstruction. Chest x-ray was reviewed, essentially it shows endotracheal tube with the tip at the level of the aortic knob, borderline cardiomegaly, it is an AP film, mild interstitial edema if any, no pleural effusions, no gross bony fractures. ASSESSMENT: 1. Acute hypoxemic respiratory failure, now on mechanical ventilatory support. 2. Disseminated intravascular coagulation. 3. Non-ST elevation myocardial infarction. 4. Acute encephalopathy. 5. Severe dehydration. 6. Thrombocytopenia. 7. Severe metabolic acidosis. 8. Hyponatremia. 9. Hypokalemia. 10. Lactic acidosis. 11. Elevated serum transaminases. 12. Hypochloremia. PLAN: Certainly the differential diagnosis is a little wide at this time. For now, we will focus on life-sustaining interventions, supportive care. There is a certain clinical resemblance to the presentation of a Hantavirus syndrome; however, there has not been any severe pulmonary involvement at this point. I do note the borderline cardiomegaly on the chest x-ray and the mild interstitial infiltrates on my reading. The plan will be as follows: 1. Correct coagulopathy. He has received platelets. He has received cryoprecipitate and I believe he has received fresh frozen plasma. There is no more active bleeding that we can see. 2. I will hyperventilate him in the short time and increase the tidal volumes to 600, increase the set rate to 30 and blow down his pCO2 levels while we begin a bicarbonate drip. The bicarbonate drip will also help with periods of hypoglycemia noticed earlier, but more importantly should also help with allow resolution of the hyperchloremic component of the metabolic acidosis. He is following commands appropriately at this time that is a good sign. He has been seen by the Infectious Disease team. We will continue acyclovir for now while not active against Hantavirus in particular; there appears to be the signs and symptoms of a viral syndrome of sorts, so I will defer to them. I will get a CRP level. We will trend the lactic acid level to food service helper clinical decision making. I will repeat arterial blood gases about a couple of hours after making the above-mentioned changes in the ventilator settings. We will continue the Protonix drip for now. A GI evaluation will also be placed, GI consult, as he may not need to remain on the Protonix drip. We will continue to wean vasopressors to keep mean arterial pressures greater than or equal to about 65 mmHg, actually again as acidosis improves, I expect his blood pressure to also improve. We will begin trickle feeding him at this point. I will have a short leash for development of a rapid phase of a possible Hantavirus type syndrome, by which I mean if he does not respond to the interventions or he shows acute deterioration in cardiopulmonary status, I will be considering transferring him to another center. I will get a 2D echocardiogram to better evaluate his ejection fraction, especially as generous volume resuscitation is ongoing. I will increase the rate of D5 bicarbonate drip to 150 mL per hour. He is on DVT prophylaxis in the form of SCDs. I will try and get femoral IV venous access on him until his coagulopathy improves, at which point, we will look for a different site. Flu and pneumonia vaccination will be addressed per protocol. Thank you very much for the consult, Dr. Odonnell. We will follow along and make further recommendations as picture progresses/becomes clearer. He is critically ill on life-sustaining interventions including mechanical ventilatory support and vasopressors and he is at high risk of deterioration including very high risk of from cardiopulmonary and hematologic system deterioration. At this time, I have spent about 40-45 minutes of critical care time without overlap and excluding any procedural time that may be necessary. I have explained the care plan and thoughts to his family in the room, his mother. We will follow along. We will make further recommendations as picture progresses/becomes clearer. JOB# [id number] DIMITRIOS/ADIA VAN
[2019-03-11 03:10] LABS: Hematocrit 29.5 % (35.5-45.6); Hemoglobin 10.4 gm/dl (11.8-15.2); Mean Corpuscular HGB Conc 35 % (32-34); Mean Corpuscular Volume 90 fl (84-94); Red Blood Count 3.28 M/mm3 (3.65-5.03); Red Cell Distribution Width 13.4 % (13.2-15.2)
[2019-03-11 03:17] LABS: Platelet Count 18 K/mm3 (140-440)
[2019-03-11 03:25] LABS: Alanine Aminotransferase 277 units/L (7-56); Albumin 1.3 g/dL (3.9-5); BUN/Creatinine Ratio 10; Blood Urea Nitrogen 7 mg/dL (9-20); Hemolysis Index 48
[2019-03-11 04:25] LABS: Calcium TNR mg/dL (8.4-10.2)
[2019-03-11 05:32] LABS: Calcium 7.2 mg/dL (8.4-10.2)
[2019-03-11] MEDS ORDERED: NACL 0.9% 500 ML 500 ML IV ONE ×3 (05:55→21:10)
[2019-03-11] MEDS: FLAGYL 500 MG/100 ML 500 MG/100 ML BAG IV SCH ×2 (05:57→14:25)
[2019-03-11] MEDS: ZOVIRAX 800 MG in NACL 0.9% 100 ML IV SCH (05:58)
[2019-03-11 06:17] LABS: INR 7.6 (0.87-1.13)
--- NOTE | 2019-03-11 06:32 | Hem/Onc Progress Note ---
Assessment and Plan # Thrombocytopenia, oropharyngeal bleeding. Fibrinogen level is low at 60. D- dimers are elevated. PT/INR is elevated. PTT is elevated. Mild anemia, mild elevated LFTs. The patient's picture is consistent with consumption and DIC. # His fever may have a role. ID team is following the patient. # Altered mentation; respiratory failure, on vent. # At this time, we will do supportive care with cryoprecipitate, FFP, platelet transfusion. ct transfusion support - Patient Problems (1) Coagulopathy Status: Acute Subjective Date of service: 03/11/19 Principal diagnosis: low plt Interval history: oral bleed Objective - Constitutional Vitals: Last Vital Signs Temp 100.1 F H 03/11/19 04:00 Pulse 108 H 03/11/19 06:11 Resp 24 03/11/19 06:11 BP 123/65 03/11/19 06:11 Pulse Ox 100 03/11/19 06:11 - Labs Lab Results: Laboratory Results - last 24 hr 03/09/19 03/09/19 03/10/19 20:14 21:25 05:57 WBC RBC Hgb Hct MCV MCH MCHC RDW Plt Count Lymph % (Auto) [place] % (Auto) Eos % (Auto) Baso % (Auto) Lymph # [place] # Eos # Baso # Add Manual Diff Total Counted Seg Neutrophils % Seg Neuts % (Manual) Band Neutrophils % Lymphocytes % (Manual) Reactive Lymphs % (Man) Monocytes % (Manual) Eosinophils % (Manual) Basophils % (Manual) Metamyelocytes % Myelocytes % Promyelocytes % Blast Cells % Nucleated RBC % Seg Neutrophils # Seg Neutrophils # Man Band Neutrophils # Lymphocytes # (Manual) Abs React Lymphs (Man) Monocytes # (Manual) Eosinophils # (Manual) Basophils # (Manual) Metamyelocytes # Myelocytes # Promyelocytes # Blast Cells # WBC Morphology Hypersegmented Neuts Hyposegmented Neuts Hypogranular Neuts Smudge Cells Toxic Granulation Toxic Vacuolation Dohle Bodies Pelger-Huet Anomaly Johanna Rods Platelet Estimate Clumped Platelets Plt Clumps, EDTA Large Platelets Giant Platelets Platelet Satelliting Plt Morphology Comment RBC Morphology Dimorphic RBCs Polychromasia Hypochromasia Poikilocytosis Anisocytosis Microcytosis Macrocytosis Spherocytes Pappenheimer Bodies Sickle Cells Target Cells Tear Drop Cells Ovalocytes Helmet Cells Gonzalez-Adell Bodies [place] Rings Rosita Cells Bite Cells Crenated Cell Elliptocytes Acanthocytes (Spur) Rouleaux Hemoglobin C Crystals Schistocytes Malaria parasites Phil Bodies Hem Pathologist Commnt PT INR APTT Fibrinogen POC ABG pH POC ABG pO2 POC ABG HCO3 POC ABG Total CO2 POC ABG O2 Sat POC ABG Base Excess FiO2 Sodium 151 H Potassium 4.5 D Chloride 124.3 H Carbon Dioxide 12 L Anion Gap 19 BUN 11 Creatinine 1.3 Estimated GFR > 60 BUN/Creatinine Ratio 8 Glucose TNR POC Glucose 221 H Lactic Acid Calcium 7.2 L Total Bilirubin 1.70 H AST 1257 H ALT 528 H Alkaline Phosphatase 95 Lactate Dehydrogenase Total Creatine Kinase 1123 H CK-MB (CK-2) 27.2 H CK-MB (CK-2) Rel Index 2.4 Troponin T 2.310 H* Total Protein 4.9 L Albumin 2.8 L Albumin/Globulin Ratio 1.3 Urine Color Urine Turbidity Urine pH Ur Specific [place] Urine Protein Urine Glucose (UA) Urine Ketones Urine Blood Urine Nitrite Urine Bilirubin Urine Urobilinogen Ur Leukocyte Esterase Urine WBC (Auto) Urine RBC (Auto) U Epithel Cells (Auto) Urine Bacteria (Auto) Urine Mucus Urine Opiates Screen Urine Methadone Screen Ur Barbiturates Screen Ur Phencyclidine Scrn Ur Amphetamines Screen U Benzodiazepines Scrn Urine Cocaine Screen U Marijuana (THC) Screen Drugs of Abuse Note RPR Nonreactive Blood Type 03/10/19 03/10/19 03/10/19 05:57 06:00 08:30 WBC 20.1 H 19.3 H RBC 4.58 4.47 Hgb 14.5 13.9 Hct 41.8 D 41.5 MCV 91 93 MCH 32 31 MCHC 35 H 34 RDW 13.6 13.8 Plt Count 14 L* 10 L* Lymph % (Auto) Lead Maintenance Technician Lead Maintenance Technician [place] % (Auto) Lead Maintenance Technician Lead Maintenance Technician Eos % (Auto) Lead Maintenance Technician Lead Maintenance Technician Baso % (Auto) Lead Maintenance Technician Lead Maintenance Technician Lymph # Lead Maintenance Technician Lead Maintenance Technician [place] # Lead Maintenance Technician Lead Maintenance Technician Eos # Lead Maintenance Technician Lead Maintenance Technician Baso # Lead Maintenance Technician Lead Maintenance Technician Add Manual Diff Complete Complete Total Counted 100 100 Seg Neutrophils % Lead Maintenance Technician Lead Maintenance Technician Seg Neuts % (Manual) 75.0 H 77.0 H Band Neutrophils % 6.0 12.0 Lymphocytes % (Manual) 14.0 5.0 L Reactive Lymphs % (Man) 1.0 0 Monocytes % (Manual) 3.0 6.0 Eosinophils % (Manual) 0 0 Basophils % (Manual) 0 0 Metamyelocytes % 1.0 0 Myelocytes % 0 0 Promyelocytes % 0 0 Blast Cells % 0 0 Nucleated RBC % 8.0 H 8.0 H Seg Neutrophils # Lead Maintenance Technician Lead Maintenance Technician Seg Neutrophils # Man 14.4 H 14.9 H Band Neutrophils # 1.2 2.3 Lymphocytes # (Manual) 2.7 1.0 L Abs React Lymphs (Man) 0.2 0.0 Monocytes # (Manual) 0.6 1.2 H Eosinophils # (Manual) 0.0 0.0 Basophils # (Manual) 0.0 0.0 Metamyelocytes # 0.2 0.0 Myelocytes # 0.0 0.0 Promyelocytes # 0.0 0.0 Blast Cells # 0.0 0.0 WBC Morphology Not Reportable Not Reportable Hypersegmented Neuts Not Reportable Not Reportable Hyposegmented Neuts Not Reportable Not Reportable Hypogranular Neuts Not Reportable Not Reportable Smudge Cells Not Reportable Not Reportable Toxic Granulation Not Reportable Not Reportable Toxic Vacuolation Not Reportable Not Reportable Dohle Bodies Not Reportable Not Reportable Pelger-Huet Anomaly Not Reportable Not Reportable Johanna Rods Not Reportable Not Reportable Platelet Estimate Consistent w auto Consistent w auto Clumped Platelets Not Reportable Not Reportable Plt Clumps, EDTA Not Reportable Not Reportable Large Platelets Not Reportable Not Reportable Giant Platelets Not Reportable Not Reportable Platelet Satelliting Not Reportable Not Reportable Plt Morphology Comment Not Reportable Not Reportable RBC Morphology Not Reportable Not Reportable Dimorphic RBCs Not Reportable Not Reportable Polychromasia Not Reportable Not Reportable Hypochromasia Not Reportable Not Reportable Poikilocytosis 1+ Not Reportable Anisocytosis 1+ Not Reportable Microcytosis Not Reportable Not Reportable Macrocytosis Not Reportable Not Reportable Spherocytes Not Reportable Not Reportable Pappenheimer Bodies Not Reportable Not Reportable Sickle Cells Not Reportable Not Reportable Target Cells Not Reportable Not Reportable Tear Drop Cells Not Reportable Not Reportable Ovalocytes Not Reportable Not Reportable Helmet Cells Not Reportable Not Reportable Gonzalez-Adell Bodies Not Reportable Not Reportable [place] Rings Not Reportable Not Reportable Rosita Cells Not Reportable 3+ Bite Cells Not Reportable Not Reportable Crenated Cell Not Reportable Not Reportable Elliptocytes Not Reportable Not Reportable Acanthocytes (Spur) Not Reportable Not Reportable Rouleaux Not Reportable Not Reportable Hemoglobin C Crystals Not Reportable Not Reportable Schistocytes Not Reportable Not Reportable Malaria parasites Not Reportable Not Reportable Phil Bodies Not Reportable Not Reportable Hem Pathologist Commnt No No PT 57.2 H INR 6.63 H* APTT > 240.0 H* Fibrinogen POC ABG pH POC ABG pO2 POC ABG HCO3 POC ABG Total CO2 POC ABG O2 Sat POC ABG Base Excess FiO2 Sodium Potassium Chloride Carbon Dioxide Anion Gap BUN Creatinine Estimated GFR BUN/Creatinine Ratio Glucose POC Glucose Lactic Acid Calcium Total Bilirubin AST ALT Alkaline Phosphatase Lactate Dehydrogenase Total Creatine Kinase CK-MB (CK-2) CK-MB (CK-2) Rel Index Troponin T Total Protein Albumin Albumin/Globulin Ratio Urine Color Urine Turbidity Urine pH Ur Specific [place] Urine Protein Urine Glucose (UA) Urine Ketones Urine Blood Urine Nitrite Urine Bilirubin Urine Urobilinogen Ur Leukocyte Esterase Urine WBC (Auto) Urine RBC (Auto) U Epithel Cells (Auto) Urine Bacteria (Auto) Urine Mucus Urine Opiates Screen Urine Methadone Screen Ur Barbiturates Screen Ur Phencyclidine Scrn Ur Amphetamines Screen U Benzodiazepines Scrn Urine Cocaine Screen U Marijuana (THC) Screen Drugs of Abuse Note RPR Blood Type 03/10/19 03/10/19 03/10/19 08:30 08:55 11:12 WBC RBC Hgb Hct MCV MCH MCHC RDW Plt Count Lymph % (Auto) [place] % (Auto) Eos % (Auto) Baso % (Auto) Lymph # [place] # Eos # Baso # Add Manual Diff Total Counted Seg Neutrophils % Seg Neuts % (Manual) Band Neutrophils % Lymphocytes % (Manual) Reactive Lymphs % (Man) Monocytes % (Manual) Eosinophils % (Manual) Basophils % (Manual) Metamyelocytes % Myelocytes % Promyelocytes % Blast Cells % Nucleated RBC % Seg Neutrophils # Seg Neutrophils # Man Band Neutrophils # Lymphocytes # (Manual) Abs React Lymphs (Man) Monocytes # (Manual) Eosinophils # (Manual) Basophils # (Manual) Metamyelocytes # Myelocytes # Promyelocytes # Blast Cells # WBC Morphology Hypersegmented Neuts Hyposegmented Neuts Hypogranular Neuts Smudge Cells Toxic Granulation Toxic Vacuolation Dohle Bodies Pelger-Huet Anomaly Johanna Rods Platelet Estimate Clumped Platelets Plt Clumps, EDTA Large Platelets Giant Platelets Platelet Satelliting Plt Morphology Comment RBC Morphology Dimorphic RBCs Polychromasia Hypochromasia Poikilocytosis Anisocytosis Microcytosis Macrocytosis Spherocytes Pappenheimer Bodies Sickle Cells Target Cells Tear Drop Cells Ovalocytes Helmet Cells Gonzalez-Adell Bodies [place] Rings Rosita Cells Bite Cells Crenated Cell Elliptocytes Acanthocytes (Spur) Rouleaux Hemoglobin C Crystals Schistocytes Malaria parasites Phil Bodies Hem Pathologist Commnt PT INR APTT Fibrinogen POC ABG pH 7.272 L POC ABG pO2 230 H POC ABG HCO3 10.4 POC ABG Total CO2 11 POC ABG O2 Sat 100 POC ABG Base Excess -17 FiO2 50 Sodium 151 H Potassium 3.6 Chloride 126.9 H Carbon Dioxide 8 L* Anion Gap 20 BUN 10 Creatinine 1.1 Estimated GFR > 60 BUN/Creatinine Ratio 9 Glucose 30 L* POC Glucose Lactic Acid 4.40 H* Calcium 6.1 L D Total Bilirubin 1.60 H AST 1494 H ALT 615 H Alkaline Phosphatase 79 Lactate Dehydrogenase Total Creatine Kinase CK-MB (CK-2) CK-MB (CK-2) Rel Index Troponin T Total Protein 3.9 L D Albumin 2.3 L Albumin/Globulin Ratio 1.4 Urine Color Urine Turbidity Urine pH Ur Specific [place] Urine Protein Urine Glucose (UA) Urine Ketones Urine Blood Urine Nitrite Urine Bilirubin Urine Urobilinogen Ur Leukocyte Esterase Urine WBC (Auto) Urine RBC (Auto) U Epithel Cells (Auto) Urine Bacteria (Auto) Urine Mucus Urine Opiates Screen Urine Methadone Screen Ur Barbiturates Screen Ur Phencyclidine Scrn Ur Amphetamines Screen U Benzodiazepines Scrn Urine Cocaine Screen U Marijuana (THC) Screen Drugs of Abuse Note RPR Blood Type 03/10/19 03/10/19 03/10/19 12:27 12:27 17:40 WBC RBC Hgb Hct MCV MCH MCHC RDW Plt Count Lymph % (Auto) [place] % (Auto) Eos % (Auto) Baso % (Auto) Lymph # [place] # Eos # Baso # Add Manual Diff Total Counted Seg Neutrophils % Seg Neuts % (Manual) Band Neutrophils % Lymphocytes % (Manual) Reactive Lymphs % (Man) Monocytes % (Manual) Eosinophils % (Manual) Basophils % (Manual) Metamyelocytes % Myelocytes % Promyelocytes % Blast Cells % Nucleated RBC % Seg Neutrophils # Seg Neutrophils # Man Band Neutrophils # Lymphocytes # (Manual) Abs React Lymphs (Man) Monocytes # (Manual) Eosinophils # (Manual) Basophils # (Manual) Metamyelocytes # Myelocytes # Promyelocytes # Blast Cells # WBC Morphology Hypersegmented Neuts Hyposegmented Neuts Hypogranular Neuts Smudge Cells Toxic Granulation Toxic Vacuolation Dohle Bodies Pelger-Huet Anomaly Johanna Rods Platelet Estimate Clumped Platelets Plt Clumps, EDTA Large Platelets Giant Platelets Platelet Satelliting Plt Morphology Comment RBC Morphology Dimorphic RBCs Polychromasia Hypochromasia Poikilocytosis Anisocytosis Microcytosis Macrocytosis Spherocytes Pappenheimer Bodies Sickle Cells Target Cells Tear Drop Cells Ovalocytes Helmet Cells Gonzalez-Adell Bodies [place] Rings Rosita Cells Bite Cells Crenated Cell Elliptocytes Acanthocytes (Spur) Rouleaux Hemoglobin C Crystals Schistocytes Malaria parasites Phil Bodies Hem Pathologist Commnt PT < 10.0 L INR > 17.67 H* APTT Fibrinogen POC ABG pH POC ABG pO2 POC ABG HCO3 POC ABG Total CO2 POC ABG O2 Sat POC ABG Base Excess FiO2 Sodium Potassium Chloride Carbon Dioxide Anion Gap BUN Creatinine Estimated GFR BUN/Creatinine Ratio Glucose POC Glucose Lactic Acid Calcium Total Bilirubin AST ALT Alkaline Phosphatase Lactate Dehydrogenase Total Creatine Kinase CK-MB (CK-2) CK-MB (CK-2) Rel Index Troponin T Total Protein Albumin Albumin/Globulin Ratio Urine Color Yellow Urine Turbidity Turbid Urine pH 5.0 Ur Specific [place] 1.010 Urine Protein 30 mg/dl Urine Glucose (UA) 50 Urine Ketones 20 Urine Blood Lg Urine Nitrite Neg Urine Bilirubin Neg Urine Urobilinogen < 2.0 Ur Leukocyte Esterase Neg Urine WBC (Auto) 46.0 H Urine RBC (Auto) 77.0 U Epithel Cells (Auto) 2.0 Urine Bacteria (Auto) 1+ Urine Mucus 1+ Urine Opiates Screen Presumptive negative Urine Methadone Screen Presumptive negative Ur Barbiturates Screen Presumptive negative Ur Phencyclidine Scrn Presumptive negative Ur Amphetamines Screen Presumptive negative U Benzodiazepines Scrn Presumptive negative Urine Cocaine Screen Presumptive negative U Marijuana (THC) Screen Presumptive negative Drugs of Abuse Note Disclamer RPR Blood Type 03/10/19 03/10/19 03/10/19 17:40 Unknown Unknown WBC 9.0 RBC 3.05 L Hgb 9.6 L D Hct 27.5 L D MCV 90 MCH 31 MCHC 35 H RDW 13.7 Plt Count 63 L D Lymph % (Auto) [place] % (Auto) Eos % (Auto) Baso % (Auto) Lymph # [place] # Eos # Baso # Add Manual Diff Total Counted Seg Neutrophils % Seg Neuts % (Manual) Band Neutrophils % Lymphocytes % (Manual) Reactive Lymphs % (Man) Monocytes % (Manual) Eosinophils % (Manual) Basophils % (Manual) Metamyelocytes % Myelocytes % Promyelocytes % Blast Cells % Nucleated RBC % Seg Neutrophils # Seg Neutrophils # Man Band Neutrophils # Lymphocytes # (Manual) Abs React Lymphs (Man) Monocytes # (Manual) Eosinophils # (Manual) Basophils # (Manual) Metamyelocytes # Myelocytes # Promyelocytes # Blast Cells # WBC Morphology Hypersegmented Neuts Hyposegmented Neuts Hypogranular Neuts Smudge Cells Toxic Granulation Toxic Vacuolation Dohle Bodies Pelger-Huet Anomaly Johanna Rods Platelet Estimate Clumped Platelets Plt Clumps, EDTA Large Platelets Giant Platelets Platelet Satelliting Plt Morphology Comment RBC Morphology Dimorphic RBCs Polychromasia Hypochromasia Poikilocytosis Anisocytosis Microcytosis Macrocytosis Spherocytes Pappenheimer Bodies Sickle Cells Target Cells Tear Drop Cells Ovalocytes Helmet Cells Gonzalez-Adell Bodies [place] Rings Rosita Cells Bite Cells Crenated Cell Elliptocytes Acanthocytes (Spur) Rouleaux Hemoglobin C Crystals Schistocytes Malaria parasites Phil Bodies Hem Pathologist Commnt PT INR APTT Fibrinogen POC ABG pH POC ABG pO2 POC ABG HCO3 POC ABG Total CO2 POC ABG O2 Sat POC ABG Base Excess FiO2 Sodium Potassium Chloride Carbon Dioxide Anion Gap BUN Creatinine Estimated GFR BUN/Creatinine Ratio Glucose POC Glucose Lactic Acid 5.10 H* Calcium Total Bilirubin AST ALT Alkaline Phosphatase Lactate Dehydrogenase Total Creatine Kinase CK-MB (CK-2) CK-MB (CK-2) Rel Index Troponin T Total Protein Albumin Albumin/Globulin Ratio Urine Color Urine Turbidity Urine pH Ur Specific [place] Urine Protein Urine Glucose (UA) Urine Ketones Urine Blood Urine Nitrite Urine Bilirubin Urine Urobilinogen Ur Leukocyte Esterase Urine WBC (Auto) Urine RBC (Auto) U Epithel Cells (Auto) Urine Bacteria (Auto) Urine Mucus Urine Opiates Screen Urine Methadone Screen Ur Barbiturates Screen Ur Phencyclidine Scrn Ur Amphetamines Screen U Benzodiazepines Scrn Urine Cocaine Screen U Marijuana (THC) Screen Drugs of Abuse Note RPR Blood Type O POSITIVE 03/11/19 03/11/19 03/11/19 00:12 00:12 03:00 WBC 8.3 RBC 3.28 L Hgb 10.4 L Hct 29.5 L MCV 90 MCH 32 MCHC 35 H RDW 13.4 Plt Count 18 L* Lymph % (Auto) [place] % (Auto) Eos % (Auto) Baso % (Auto) Lymph # [place] # Eos # Baso # Add Manual Diff Total Counted Seg Neutrophils % Seg Neuts % (Manual) Band Neutrophils % Lymphocytes % (Manual) Reactive Lymphs % (Man) Monocytes % (Manual) Eosinophils % (Manual) Basophils % (Manual) Metamyelocytes % Myelocytes % Promyelocytes % Blast Cells % Nucleated RBC % Seg Neutrophils # Seg Neutrophils # Man Band Neutrophils # Lymphocytes # (Manual) Abs React Lymphs (Man) Monocytes # (Manual) Eosinophils # (Manual) Basophils # (Manual) Metamyelocytes # Myelocytes # Promyelocytes # Blast Cells # WBC Morphology Hypersegmented Neuts Hyposegmented Neuts Hypogranular Neuts Smudge Cells Toxic Granulation Toxic Vacuolation Dohle Bodies Pelger-Huet Anomaly Johanna Rods Platelet Estimate Clumped Platelets Plt Clumps, EDTA Large Platelets Giant Platelets Platelet Satelliting Plt Morphology Comment RBC Morphology Dimorphic RBCs Polychromasia Hypochromasia Poikilocytosis Anisocytosis Microcytosis Macrocytosis Spherocytes Pappenheimer Bodies Sickle Cells Target Cells Tear Drop Cells Ovalocytes Helmet Cells Gonzalez-Adell Bodies [place] Rings Rosita Cells Bite Cells Crenated Cell Elliptocytes Acanthocytes (Spur) Rouleaux Hemoglobin C Crystals Schistocytes Malaria parasites Phil Bodies Hem Pathologist Commnt PT INR APTT 78.0 H* Fibrinogen POC ABG pH POC ABG pO2 POC ABG HCO3 POC ABG Total CO2 POC ABG O2 Sat POC ABG Base Excess FiO2 Sodium Potassium Chloride Carbon Dioxide Anion Gap BUN Creatinine Estimated GFR BUN/Creatinine Ratio Glucose POC Glucose Lactic Acid Calcium Total Bilirubin AST ALT Alkaline Phosphatase Lactate Dehydrogenase Total Creatine Kinase CK-MB (CK-2) CK-MB (CK-2) Rel Index Troponin T Total Protein Albumin Albumin/Globulin Ratio Urine Color Urine Turbidity Urine pH Ur Specific [place] Urine Protein Urine Glucose (UA) Urine Ketones Urine Blood Urine Nitrite Urine Bilirubin Urine Urobilinogen Ur Leukocyte Esterase Urine WBC (Auto) Urine RBC (Auto) U Epithel Cells (Auto) Urine Bacteria (Auto) Urine Mucus Urine Opiates Screen Urine Methadone Screen Ur Barbiturates Screen Ur Phencyclidine Scrn Ur Amphetamines Screen U Benzodiazepines Scrn Urine Cocaine Screen U Marijuana (THC) Screen Drugs of Abuse Note RPR Blood Type O POSITIVE 03/11/19 03/11/19 03/11/19 03:00 03:00 04:50 WBC RBC Hgb Hct MCV MCH MCHC RDW Plt Count Lymph % (Auto) [place] % (Auto) Eos % (Auto) Baso % (Auto) Lymph # [place] # Eos # Baso # Add Manual Diff Total Counted Seg Neutrophils % Seg Neuts % (Manual) Band Neutrophils % Lymphocytes % (Manual) Reactive Lymphs % (Man) Monocytes % (Manual) Eosinophils % (Manual) Basophils % (Manual) Metamyelocytes % Myelocytes % Promyelocytes % Blast Cells % Nucleated RBC % Seg Neutrophils # Seg Neutrophils # Man Band Neutrophils # Lymphocytes # (Manual) Abs React Lymphs (Man) Monocytes # (Manual) Eosinophils # (Manual) Basophils # (Manual) Metamyelocytes # Myelocytes # Promyelocytes # Blast Cells # WBC Morphology Hypersegmented Neuts Hyposegmented Neuts Hypogranular Neuts Smudge Cells Toxic Granulation Toxic Vacuolation Dohle Bodies Pelger-Huet Anomaly Johanna Rods Platelet Estimate Clumped Platelets Plt Clumps, EDTA Large Platelets Giant Platelets Platelet Satelliting Plt Morphology Comment RBC Morphology Dimorphic RBCs Polychromasia Hypochromasia Poikilocytosis Anisocytosis Microcytosis Macrocytosis Spherocytes Pappenheimer Bodies Sickle Cells Target Cells Tear Drop Cells Ovalocytes Helmet Cells Gonzalez-Adell Bodies [place] Rings Rosita Cells Bite Cells Crenated Cell Elliptocytes Acanthocytes (Spur) Rouleaux Hemoglobin C Crystals Schistocytes Malaria parasites Phil Bodies Hem Pathologist Commnt PT 63.7 H INR 7.60 H* APTT Fibrinogen < 60 L* POC ABG pH POC ABG pO2 POC ABG HCO3 POC ABG Total CO2 POC ABG O2 Sat POC ABG Base Excess FiO2 Sodium 154 H Potassium TNR Chloride 134.8 H Carbon Dioxide TNR Anion Gap TNR BUN 7 L Creatinine 0.7 L Estimated GFR > 60 BUN/Creatinine Ratio 10 Glucose 77 POC Glucose Lactic Acid Calcium TNR Total Bilirubin 2.00 H AST TNR ALT 277 H Alkaline Phosphatase 57 Lactate Dehydrogenase TNR Total Creatine Kinase CK-MB (CK-2) CK-MB (CK-2) Rel Index Troponin T Total Protein TNR Albumin 1.3 L Albumin/Globulin Ratio 1.2 Urine Color Urine Turbidity Urine pH Ur Specific [place] Urine Protein Urine Glucose (UA) Urine Ketones Urine Blood Urine Nitrite Urine Bilirubin Urine Urobilinogen Ur Leukocyte Esterase Urine WBC (Auto) Urine RBC (Auto) U Epithel Cells (Auto) Urine Bacteria (Auto) Urine Mucus Urine Opiates Screen Urine Methadone Screen Ur Barbiturates Screen Ur Phencyclidine Scrn Ur Amphetamines Screen U Benzodiazepines Scrn Urine Cocaine Screen U Marijuana (THC) Screen Drugs of Abuse Note RPR Blood Type 03/11/19 03/11/19 05:00 05:02 WBC RBC Hgb Hct MCV MCH MCHC RDW Plt Count Lymph % (Auto) [place] % (Auto) Eos % (Auto) Baso % (Auto) Lymph # [place] # Eos # Baso # Add Manual Diff Total Counted Seg Neutrophils % Seg Neuts % (Manual) Band Neutrophils % Lymphocytes % (Manual) Reactive Lymphs % (Man) Monocytes % (Manual) Eosinophils % (Manual) Basophils % (Manual) Metamyelocytes % Myelocytes % Promyelocytes % Blast Cells % Nucleated RBC % Seg Neutrophils # Seg Neutrophils # Man Band Neutrophils # Lymphocytes # (Manual) Abs React Lymphs (Man) Monocytes # (Manual) Eosinophils # (Manual) Basophils # (Manual) Metamyelocytes # Myelocytes # Promyelocytes # Blast Cells # WBC Morphology Hypersegmented Neuts Hyposegmented Neuts Hypogranular Neuts Smudge Cells Toxic Granulation Toxic Vacuolation Dohle Bodies Pelger-Huet Anomaly Johanna Rods Platelet Estimate Clumped Platelets Plt Clumps, EDTA Large Platelets Giant Platelets Platelet Satelliting Plt Morphology Comment RBC Morphology Dimorphic RBCs Polychromasia Hypochromasia Poikilocytosis Anisocytosis Microcytosis Macrocytosis Spherocytes Pappenheimer Bodies Sickle Cells Target Cells Tear Drop Cells Ovalocytes Helmet Cells Gonzalez-Adell Bodies [place] Rings Rosita Cells Bite Cells Crenated Cell Elliptocytes Acanthocytes (Spur) Rouleaux Hemoglobin C Crystals Schistocytes Malaria parasites Phil Bodies Hem Pathologist Commnt PT INR APTT Fibrinogen POC ABG pH 7.557 H POC ABG pO2 141 H POC ABG HCO3 14.5 POC ABG Total CO2 15 POC ABG O2 Sat 100 POC ABG Base Excess -8 FiO2 30 Sodium 153 H Potassium 2.2 L* D Chloride 130.9 H Carbon Dioxide 13 L Anion Gap 11 BUN 15 Creatinine 1.8 H D Estimated GFR 47 BUN/Creatinine Ratio 8 Glucose 88 POC Glucose Lactic Acid Calcium 7.2 L D Total Bilirubin 4.80 H AST 4959 H ALT 2465 H Alkaline Phosphatase 108 Lactate Dehydrogenase 3877 H Total Creatine Kinase CK-MB (CK-2) CK-MB (CK-2) Rel Index Troponin T Total Protein 4.7 L D Albumin 3.0 L Albumin/Globulin Ratio 1.8 Urine Color Urine Turbidity Urine pH Ur Specific [place] Urine Protein Urine Glucose (UA) Urine Ketones Urine Blood Urine Nitrite Urine Bilirubin Urine Urobilinogen Ur Leukocyte Esterase Urine WBC (Auto) Urine RBC (Auto) U Epithel Cells (Auto) Urine Bacteria (Auto) Urine Mucus Urine Opiates Screen Urine Methadone Screen Ur Barbiturates Screen Ur Phencyclidine Scrn Ur Amphetamines Screen U Benzodiazepines Scrn Urine Cocaine Screen U Marijuana (THC) Screen Drugs of Abuse Note RPR Blood Type Medications & Allergies - Medications Allergies/Adverse Reactions: Allergies No Known Allergies Allergy (Verified 03/09/19 20:47) Home Medications: Home Medications Medication Instructions Recorded Confirmed Last Taken Type Unobtainable 03/09/19 03/09/19 Unknown History Active Medications: Generic Name Dose Route Start Last Admin Trade Name Freq PRN Reason Stop Dose Admin Lipase/Protease/Amylase 1 each 03/10/19 15:00 Pancresilke Spence 10,500 Unit FEEDTUBE PRN PRN For Clogged Feeding Tube Fentanyl 50 mcg 03/09/19 20:35 Sublimaze IV Q10MIN PRN ANALGESIA Hydrophilic Ointment 1 applic 03/09/19 20:35 Vaseline Lip Therapy TP Q2HR PRN Dry Lips Fentanyl Citrate 2,000 mcg in 100 mls @ 4.082 mls/hr 03/09/19 21:00 03/10/19 20:49 Fentanyl Drip Premix IV 2 mcg/kg/hr TITR SHAYLEE 8.165 mls/hr Administration Protocol 1 MCG/KG/HR Midazolam HCl 100 mg/ Sodium 100 mls @ 2 mls/hr 03/09/19 21:00 08/08/19 07:00 Chloride IV 0 mg/hr TITR SHAYLEE 0 mls/hr Titration Protocol 2 MG/HR Pantoprazole Sodium 80 mg/ 100 mls @ 10 mls/hr 03/09/19 23:45 03/10/19 22:10 Sodium Chloride IV 8 mg/hr DIRECT SHAYLEE 10 mls/hr Administration 8 MG/HR Acyclovir 800 mg/ Sodium 116 mls @ 100 mls/hr 03/10/19 06:00 03/11/19 05:58 Chloride IV 100 mls/hr Q8HR SHAYLEE Administration Protocol Vasopressin 20 unit/ Sodium 101 mls @ 9.09 mls/hr 03/10/19 03:00 03/11/19 00:00 Chloride IV 0.03 units/min TITR SHAYLEE 9.09 mls/hr Administration Protocol 0.03 UNITS/MIN Phenylephrine HCl 100 mg/ 100 mls @ 3 mls/hr 03/10/19 02:30 03/10/19 17:05 Sodium Chloride IV 0 mcg/min TITR SHAYLEE 0 mls/hr Titration Protocol 50 MCG/MIN Vancomycin HCl 1,250 mg/ 275 mls @ 166.667 mls/hr 03/10/19 10:00 03/11/19 00:40 Sodium Chloride IV 166.667 mls/hr Q12HR SHAYLEE Administration Sodium Bicarbonate 150 meq/ 1,150 mls @ 42 mls/hr 03/10/19 08:30 03/10/19 19:04 Dextrose IV 150 mls/hr DIRECT SHAYLEE Administration Norepinephrine 8 mg/ Sodium 250 mls @ 3.75 mls/hr 03/10/19 11:30 03/10/19 20:31 Chloride IV 6 mcg/min TITR SHAYLEE 11.25 mls/hr Administration Protocol 2 MCG/MIN Ceftriaxone Sodium 2 gm in 100 mls @ 200 mls/hr 03/10/19 22:00 03/10/19 22:24 Rocephin/Ns 2 Gm/100 Ml IV 200 mls/hr Q12HR SHAYLEE Administration Protocol Metronidazole 500 mg in 100 mls @ 100 mls/hr 03/10/19 14:00 03/11/19 05:57 Flagyl 500 Mg/100 Ml IV 100 mls/hr Q8HR SHAYLEE Administration Protocol Doxycycline Hyclate 100 mg/ 250 mls @ 250 mls/hr 03/10/19 13:00 03/11/19 00:40 Sodium Chloride IV 250 mls/hr Q12HR SHAYLEE Administration Protocol Ibuprofen 600 mg 03/10/19 14:00 Ibuprofen PO 03/12/19 13:59 Q6HR PRN TEMP > 101 Lorazepam 2 mg 03/09/19 21:51 Ativan IV Q15MIN PRN Seizures Midazolam HCl 2 mg 03/09/19 20:35 Versed IV Q10MIN PRN Sedation Multi-Ingred Cream/Lotion/Oil/Oint 1 applic 03/09/19 20:35 Artificial Tears Ophth Oint OU Q4HR PRN Dry Eye(s) Ondansetron HCl 4 mg 03/10/19 01:44 Zofran IV Q8H PRN Nausea And Vomiting Simple Syrup 15 ml 03/10/19 15:00 Simple Syrup FEEDTUBE PRN PRN Hypoglycemia Simple Syrup 30 ml 03/10/19 15:00 Simple Syrup FEEDTUBE PRN PRN Hypoglycemia Sodium Bicarbonate 325 mg 03/10/19 15:00 Sodium Bicarbonate FEEDTUBE PRN PRN For Clogged Feeding Tube
[2019-03-11] MEDS: KCL 10MEQ/100ML 10 MEQ/100 ML BAG IV SCH ×4 (06:53→10:58)
[2019-03-11] MEDS: fentaNYL DRIP Premix 2,000 MCG/100 ML BAG IV SCH (06:58)
--- NOTE | 2019-03-11 07:21 | Consultation ---
REFERRING PHYSICIAN: Dr. Odonnell. REASON FOR CONSULTATION: Thrombocytopenia, DIC. HISTORY OF PRESENT ILLNESS: I saw the patient, a 23-year-old male with no significant past medical history, who was admitted with altered mentation. The patient was found by relatives to be diaphoretic and foaming at the mouth. EMS found him to be tachycardic. The patient was intubated. As per the family members, the patient has been having fever and was unwell since Thursday. He worked at a bakery, but quit the job recently. No recent travel outside [place], history of hiking with friends. The patient is intubated, but is bleeding from his oropharynx. Platelets are low. Fibrinogen is low. I have been asked to evaluate the patient for this. The patient had fever. Hepatitis and HIV was negative. CT chest, abdomen and pelvis and CT head was done. REVIEW OF SYSTEMS: Not reliable. PAST MEDICAL HISTORY: None. PAST SURGICAL HISTORY: None. SOCIAL HISTORY: No history of tobacco or drug usage. FAMILY HISTORY: Not contributory. ALLERGIES: None. MEDICATIONS: During this admission, the medications include acyclovir, ceftriaxone, doxycycline. PHYSICAL EXAMINATION: VITAL SIGNS: Temperature 101, pulse 99, respirations 30, BP 117/73. HEENT: Intubated, blood in the oropharyngeal area. HEART: S1, S2. LUNGS: Decreased air entry anteriorly. ABDOMEN: Soft. NEUROLOGIC: Not able to evaluate. Edema present. LABORATORY DATA: White cell 9, hemoglobin 9.6, MCV 90, platelets 63, platelet was low at 10 prior to transfusion. Potassium 3.6, creatinine 1.1, calcium 6.1, bilirubin 1.6, AST 1494. RADIOLOGY: Abdomen CT was done. Lung bases clear. Gastroenteritis. CT head was done, mild fluid in the left maxillary sinus. ASSESSMENT: Thrombocytopenia, oropharyngeal bleeding. Fibrinogen level is low at 60. D-dimers are elevated. PT/INR is elevated. PTT is elevated. Mild anemia, mild elevated LFTs. The patient's picture is consistent with consumption and DIC. His fever may have a role. ID team is following the patient. Altered mentation; respiratory failure, on vent. At this time, we will do supportive care with cryoprecipitate, FFP, platelet transfusion. JOB# [id number] NM/NTS
[2019-03-11] MEDS: LEVOPHED 8 MG in NACL 0.9% 250ML 242 ML IV SCH ×5 (07:45→20:20)
--- NOTE | 2019-03-11 08:10 | Progress Note ---
Assessment and Plan Assessment and plan: Per ED documentation: (Obtain as patient is currently intubated and sedated) "This is a 23-year-old gentleman.... The patient is brought to the hospital by emergency medical services for altered mental status. His last known well time is not explicitly known. As per verbal report from EMS, patient found in bed, altered. Apparently, the patient was diaphoretic, foaming at the mouth, not convulsing, and was found to have a very fast tachycardic rhythm, that was reportedly borderline wide complex. EMS was concerned about SVT, and therefore given adenosine, and tried cardioversion. This was not successful. EMS states the patient had a normal Accu-Chek in the field. Upon arrival to the emergency room, the patient was altered, and foaming at the mouth, and not protecting secretions. He had a normal Accu-Chek in the emergency room. He is found to have a very tachycardic rhythm, borderline wide complex, and has a blood pressure in the 90s. Cardioversion with 200 J was attempted 2. He receives empiric sodium bicarbonate intravenously, and calcium chloride intravenously. This is not successful. In addition, he is intubated immediately and emergently for airway protection, by myself, with one attempt, with no obvious difficulties. After intubation, he is found to have a rectal temperature of 106.6. Patient started on active cooling measures, and treated empirically according to the sepsis pathway. Nursing team has been instructed to obtain patient's medications if any. As per verbal report from nursing team, family has endorsed that the patient has been having fever for about the past 36 hours. Reportedly, there is no travel outside the country. Apparently, the patient took [id number] fever medicine earlier on today, possibly Tylenol. The patient was altered with a GCS of 3 upon arrival, and is now intubated. He is therefore not able to describe exacerbating or relieving factors, qualitative nature of his symptoms, or radiation. His family is not able to provide collateral information at this time." Initial EKG shows a tachycardic rhythm, extreme right axis deviation, nonspecific ST abnormality, probable normal sinus, however, the EKG has a QTC is prolonged. XRay Report :Support devices: Endotracheal tube and NG tube in satisfactory position. No acute abnormality. CT A/P IMPRESSION: The findings are most consistent with gastroenteritis. There is no bowel obstruction and no bowel wall thickening or inflammation. US Abdomen: IMPRESSION: 1. Diffusely increased hepatic echogenicity with periportal edema. Findings could reflect either hepatic steatosis versus acute hepatitis. 2. The mild periportal edema in the gallbladder and bile ducts is also typically associated with acute hepatitis. No gallstones or bile duct dilation. 24: Hour update; Mr Myers remains critically ill. No change in mental status and no spontaneous breathing. He has developed Worsening transaminits and Hypokaelmia despite attempts to correct. He is noted with AZAR this am and nephrology is consulted. He continues to receive cryoprecipatiate and now Platelets. UDS was negative, Hepatitis study was negative. LP still precluded due to coagulopathy and low plts but he continues on abx for presumptive meningitis. Acute respiratory failure on Mechanical ventilation Pulmonary Edema Gastroenteritis-?viral- Per family patients complain started after eating out. No other person that eat with him the same food was sick according to family. 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 Will discuss with team if lasix will be helpful in the setting of edema which could also be third spacing. Continue bicarb drip Repeat BMP Neurology, GI, cards, critical care, ID input noted UDS negative Patient unable to obtain LP due to INR/coagulopathy Family updated. The high probability of a clinically significant, sudden or life threatening deterioration of the [PULMONARY, CARDIAC, HEAPTIC, LANDSCAPE ARCHITECT AND PLANNER] system(s) required my full and direct attention, intervention and personal management. The aggregate critical care time was [40] minutes. This time is in addition to time spent performing reported procedures but includes the following: [X] Data Review and interpretation [X] Patient assessment and monitoring of vital signs [X] Documentation [X] Medication orders and management History Interval history: Patient seen and examined, family at bedside. Remains critically ill appearing, no clinical change per nursing staff except noted lab abnormalities. Per family no known hx of drugs or alcohol abuse. Hospitalist Physical - Physical exam Narrative exam: Constitutional: intubated, not responsive, diaphoretic, profused bleeding from orifices now stopped. generalized edema Head, Ears, Nose: Normocephalic, atraumatic. External ears, nose normal Eyes: Conjunctivae/corneas clear. No icterus. No ptosis. Neck: Supple, Cardiovascular: S1, S2 normal. Normal rhythm Respiratory: Good bronchivesicular sounds, currently intubated. GI: Soft, non-tender; bowel sounds normal. No peritoneal signs Musculoskeletal: No pedal edema, Skin: No rash or abscess Hem/Lymphatic: No palpable cervical or supraclavicular nodes. No lymphangitis. generalized edema Psych: no agitation Neurological: No spontaneous movements observed - Constitutional Vitals: Temp Pulse Resp BP Pulse Ox 100.1 F H 114 H 24 117/64 100 03/11/19 04:00 03/11/19 07:01 03/11/19 07:01 03/11/19 07:01 03/11/19 07:01 General appearance: Present: other (intubated on the vent) Results - Labs CBC & Chem 7: 03/11/19 03:00 03/11/19 05:00 Labs: Laboratory Last Values WBC 8.3 K/mm3 (4.5-11.0) 03/11/19 03:00 RBC 3.28 M/mm3 (3.65-5.03) L 03/11/19 03:00 Hgb 10.4 gm/dl (11.8-15.2) L 03/11/19 03:00 Hct 29.5 % (35.5-45.6) L 03/11/19 03:00 MCV 90 fl (84-94) 03/11/19 03:00 MCH 32 pg (28-32) 03/11/19 03:00 MCHC 35 % (32-34) H 03/11/19 03:00 RDW 13.4 % (13.2-15.2) 03/11/19 03:00 Plt Count 18 K/mm3 (140-440) L* 03/11/19 03:00 Lymph % (Auto) Outbound Sales Specialist 03/10/19 08:30 [place] % (Auto) Outbound Sales Specialist 03/10/19 08:30 Eos % (Auto) Outbound Sales Specialist 03/10/19 08:30 Baso % (Auto) Outbound Sales Specialist 03/10/19 08:30 Lymph # Outbound Sales Specialist 03/10/19 08:30 [place] # Outbound Sales Specialist 03/10/19 08:30 Eos # Outbound Sales Specialist 03/10/19 08:30 Baso # Outbound Sales Specialist 03/10/19 08:30 Add Manual Diff Complete 03/10/19 08:30 Total Counted 100 03/10/19 08:30 Seg Neutrophils % Outbound Sales Specialist 03/10/19 08:30 Seg Neuts % (Manual) 77.0 % (40.0-70.0) H 03/10/19 08:30 12.0 % 03/10/19 08:30 5.0 % (13.4-35.0) L 03/10/19 08:30 Reactive Lymphs % (Man) 0 % 03/10/19 08:30 6.0 % (0.0-7.3) 03/10/19 08:30 0 % (0.0-4.3) 03/10/19 08:30 0 % (0.0-1.8) 03/10/19 08:30 0 % 03/10/19 08:30 0 % 03/10/19 08:30 0 % 03/10/19 08:30 0 % 03/10/19 08:30 Nucleated RBC % 8.0 % (0.0-0.9) H 03/10/19 08:30 Seg Neutrophils # Outbound Sales Specialist 03/10/19 08:30 Seg Neutrophils # Man 14.9 K/mm3 (1.8-7.7) H 03/10/19 08:30 Band Neutrophils # 2.3 K/mm3 03/10/19 08:30 1.0 K/mm3 (1.2-5.4) L 03/10/19 08:30 Abs React Lymphs (Man) 0.0 K/mm3 03/10/19 08:30 1.2 K/mm3 (0.0-0.8) H 03/10/19 08:30 0.0 K/mm3 (0.0-0.4) 03/10/19 08:30 0.0 K/mm3 (0.0-0.1) 03/10/19 08:30 0.0 K/mm3 03/10/19 08:30 0.0 K/mm3 03/10/19 08:30 0.0 K/mm3 03/10/19 08:30 Blast Cells # 0.0 K/mm3 03/10/19 08:30 WBC Morphology Not Reportable 03/10/19 08:30 Hypersegmented Neuts Not Reportable 03/10/19 08:30 Hyposegmented Neuts Not Reportable 03/10/19 08:30 Hypogranular Neuts Not Reportable 03/10/19 08:30 Not Reportable 03/10/19 08:30 Not Reportable 03/10/19 08:30 Not Reportable 03/10/19 08:30 Not Reportable 03/10/19 08:30 Not Reportable 03/10/19 08:30 Not Reportable 03/10/19 08:30 Consistent w auto 03/10/19 08:30 Not Reportable 03/10/19 08:30 Plt Clumps, EDTA Not Reportable 03/10/19 08:30 Not Reportable 03/10/19 08:30 Not Reportable 03/10/19 08:30 Not Reportable 03/10/19 08:30 Plt Morphology Comment Not Reportable 03/10/19 08:30 RBC Morphology Not Reportable 03/10/19 08:30 Dimorphic RBCs Not Reportable 03/10/19 08:30 Not Reportable 03/10/19 08:30 Not Reportable 03/10/19 08:30 Not Reportable 03/10/19 08:30 Not Reportable 03/10/19 08:30 Not Reportable 03/10/19 08:30 Not Reportable 03/10/19 08:30 Not Reportable 03/10/19 08:30 Not Reportable 03/10/19 08:30 Not Reportable 03/10/19 08:30 Not Reportable 03/10/19 08:30 Not Reportable 03/10/19 08:30 Not Reportable 03/10/19 08:30 Not Reportable 03/10/19 08:30 Not Reportable 03/10/19 08:30 Not Reportable 03/10/19 08:30 3+ 03/10/19 08:30 Not Reportable 03/10/19 08:30 Not Reportable 03/10/19 08:30 Not Reportable 03/10/19 08:30 Acanthocytes (Spur) Not Reportable 03/10/19 08:30 Rouleaux Not Reportable 03/10/19 08:30 Not Reportable 03/10/19 08:30 Not Reportable 03/10/19 08:30 Not Reportable 03/10/19 08:30 Not Reportable 03/10/19 08:30 Hem Pathologist Commnt No 03/10/19 08:30 PT 63.7 Sec. (12.2-14.9) H 03/11/19 04:50 INR 7.60 (0.87-1.13) H* 03/11/19 04:50 APTT 78.0 Sec. (24.2-36.6) H* 03/11/19 00:12 < 60 mg/dl (211-480) L* 03/11/19 03:00 > 87382 ng/mlDDU (0-234) H 03/09/19 00:00 POC ABG pH 7.557 (7.35-7.45) H 03/11/19 05:02 POC ABG pCO2 39.4 (35-45) 03/09/19 21:51 POC ABG pO2 141 (80-105) H 03/11/19 05:02 POC ABG HCO3 14.5 (22-26 mml/L) 03/11/19 05:02 POC ABG Total CO2 15 (23-27mmol/L) 03/11/19 05:02 POC ABG O2 Sat 100 03/11/19 05:02 POC ABG Base Excess -8 ((-2) - (+3)mmol/L) 03/11/19 05:02 30 % 03/11/19 05:02 Sodium 153 mmol/L (137-145) H 03/11/19 05:00 Potassium 2.2 mmol/L (3.6-5.0) L* D 03/11/19 05:00 Chloride 130.9 mmol/L (98-107) H 03/11/19 05:00 Carbon Dioxide 13 mmol/L (22-30) L 03/11/19 05:00 11 mmol/L 03/11/19 05:00 BUN 15 mg/dL (9-20) 03/11/19 05:00 1.8 mg/dL (0.8-1.5) H D 03/11/19 05:00 Estimated GFR 47 ml/min 03/11/19 05:00 8 % 03/11/19 05:00 Glucose 88 mg/dL (75-100) 03/11/19 05:00 POC Glucose 221 (70-105) H 03/09/19 20:14 Lactic Acid 5.10 mmol/L (0.7-2.0) H* 03/10/19 Unknown Calcium 7.2 mg/dL (8.4-10.2) L D 03/11/19 05:00 Magnesium 2.00 mg/dL (1.7-2.3) 03/10/19 01:50 4.80 mg/dL (0.1-1.2) H 03/11/19 05:00 AST 4959 units/L (5-40) H 03/11/19 05:00 ALT 2465 units/L (7-56) H 03/11/19 05:00 108 units/L (35-129) 03/11/19 05:00 3877 units/L (91-180) H 03/11/19 05:00 1123 units/L (55-170) H 03/10/19 05:57 CK-MB (CK-2) 27.2 ng/mL (0.0-4.0) H 03/10/19 05:57 CK-MB (CK-2) Rel Index 2.4 (0-4) 03/10/19 05:57 2.310 ng/mL (0.00-0.029) H* 03/10/19 05:57 4.7 g/dL (6.3-8.2) L D 03/11/19 05:00 3.0 g/dL (3.9-5) L 03/11/19 05:00 1.8 % 03/11/19 05:00 Triglycerides 148 mg/dL (2-149) 03/10/19 01:50 Cholesterol 149 mg/dL (50-199) 03/10/19 01:50 56 mg/dL (50-130) 03/10/19 01:50 23 mg/dL (40-59) L 03/10/19 01:50 6.47 % 03/10/19 01:50 TSH 2.950 mlU/mL (0.270-4.200) 03/09/19 22:20 Free T4 1.01 ng/dL (0.76-1.46) 03/09/19 22:20 Yellow (Yellow) 03/10/19 12:27 Turbid (Clear) 03/10/19 12:27 5.0 (5.0-7.0) 03/10/19 12:27 Ur Specific [place] 1.010 (1.003-1.030) 03/10/19 12:27 30 mg/dl mg/dL (Negative) 03/10/19 12:27 50 mg/dL (Negative) 03/10/19 12:27 20 mg/dL (Negative) 03/10/19 12:27 Lg (Negative) 03/10/19 12:27 Neg (Negative) 03/10/19 12:27 Neg (Negative) 03/10/19 12:27 < 2.0 mg/dL (<2.0) 03/10/19 12:27 Ur Leukocyte Esterase Neg (Negative) 03/10/19 12:27 46.0 /HPF (0.0-6.0) H 03/10/19 12:27 77.0 /HPF (0.0-6.0) 03/10/19 12:27 U Epithel Cells (Auto) 2.0 /HPF (0-13.0) 03/10/19 12:27 1+ /HPF (Negative) 03/10/19 12:27 1+ /HPF 03/10/19 12:27 Salicylates < 0.3 mg/dL (2.8-20.0) L 03/09/19 22:20 Presumptive negative 03/10/19 12:27 Presumptive negative 03/10/19 12:27 Acetaminophen < 5.0 ug/mL (10.0-30.0) L 03/09/19 22:20 Ur Barbiturates Screen Presumptive negative 03/10/19 12:27 Valproic Acid < 2.8 ug/mL (50-100) L 03/09/19 22:20 Ur Phencyclidine Scrn Presumptive negative 03/10/19 12:27 Ur Amphetamines Screen Presumptive negative 03/10/19 12:27 U Benzodiazepines Scrn Presumptive negative 03/10/19 12:27 [place] 0.1 mmol/L (0.0-1.2) 03/09/19 22:20 Presumptive negative 03/10/19 12:27 U Marijuana (THC) Screen Presumptive negative 03/10/19 12:27 Disclamer 03/10/19 12:27 Plasma/Serum Alcohol < 0.01 % (0-0.07) 03/09/19 22:20 RPR Nonreactive (Nonreactive) 03/09/19 21:25 Hepatitis A IgM Ab Non-reactive (NonReactive) 03/09/19 22:20 Hep Bs Antigen Non-reactive (Negative) 03/09/19 22:20 Hep B Core IgM Ab Non-reactive (NonReactive) 03/09/19 22:20 Non-reactive (NonReactive) 03/09/19 22:20 HIV 1&2 Antibody Rapid Non react (Non React) 03/09/19 21:25 Non react (Non React) 03/09/19 21:25 Blood Type O POSITIVE 03/11/19 07:00 Active Medications - Current Medications Current Medications: Generic Name Dose Route Start Last Admin Trade Name Freq PRN Reason Stop Dose Admin Lipase/Protease/Amylase 1 each 03/10/19 15:00 Pancreaze 10,500 Unit FEEDTUBE PRN PRN For Clogged Feeding Tube Fentanyl 50 mcg 03/09/19 20:35 Sublimaze IV Q10MIN PRN ANALGESIA Hydrophilic Ointment 1 applic 03/09/19 20:35 Vaseline Lip Therapy TP Q2HR PRN Dry Lips Fentanyl Citrate 2,000 mcg in 100 mls @ 4.082 mls/hr 03/09/19 21:00 03/11/19 06:58 Fentanyl Drip Premix IV 2 mcg/kg/hr TITR SHAYLEE 8.165 mls/hr Administration Protocol 1 MCG/KG/HR Midazolam HCl 100 mg/ Sodium 100 mls @ 2 mls/hr 03/09/19 21:00 03/10/19 07:00 Chloride IV 0 mg/hr TITR SHAYLEE 0 mls/hr Titration Protocol 2 MG/HR Pantoprazole Sodium 80 mg/ 100 mls @ 10 mls/hr 03/09/19 23:45 03/10/19 22:10 Sodium Chloride IV 8 mg/hr DIRECT SHAYLEE 10 mls/hr Administration 8 MG/HR Acyclovir 800 mg/ Sodium 116 mls @ 100 mls/hr 03/10/19 06:00 03/11/19 05:58 Chloride IV 100 mls/hr Q8HR SHAYLEE Administration Protocol Vasopressin 20 unit/ Sodium 101 mls @ 9.09 mls/hr 03/10/19 03:00 03/11/19 00:00 Chloride IV 0.03 units/min TITR SHAYLEE 9.09 mls/hr Administration Protocol 0.03 UNITS/MIN Phenylephrine HCl 100 mg/ 100 mls @ 3 mls/hr 03/10/19 02:30 03/10/19 17:05 Sodium Chloride IV 0 mcg/min TITR SHAYLEE 0 mls/hr Titration Protocol 50 MCG/MIN Vancomycin HCl 1,250 mg/ 275 mls @ 166.667 mls/hr 03/10/19 10:00 03/11/19 00:40 Sodium Chloride IV 166.667 mls/hr Q12HR SHAYLEE Administration Sodium Bicarbonate 150 meq/ 1,150 mls @ 42 mls/hr 03/10/19 08:30 03/10/19 19:04 Dextrose IV 150 mls/hr DIRECT SHAYLEE Administration Norepinephrine 8 mg/ Sodium 250 mls @ 3.75 mls/hr 03/10/19 11:30 03/11/19 08:01 Chloride IV 10 mcg/min TITR SHAYLEE 18.75 mls/hr Titration Protocol 2 MCG/MIN Ceftriaxone Sodium 2 gm in 100 mls @ 200 mls/hr 03/10/19 22:00 03/10/19 22:24 Rocephin/Ns 2 Gm/100 Ml IV 200 mls/hr Q12HR SHAYLEE Administration Protocol Metronidazole 500 mg in 100 mls @ 100 mls/hr 03/10/19 14:00 03/11/19 05:57 Flagyl 500 Mg/100 Ml IV 100 mls/hr Q8HR SHAYLEE Administration Protocol Doxycycline Hyclate 100 mg/ 250 mls @ 250 mls/hr 03/10/19 13:00 03/11/19 00:40 Sodium Chloride IV 250 mls/hr Q12HR SHAYLEE Administration Protocol Potassium Chloride 10 meq in 100 mls @ 100 mls/hr 03/11/19 07:00 03/11/19 06:53 Kcl 10meq/100ml IV 03/11/19 10:59 100 mls/hr Q1H SHAYLEE Administration Ibuprofen 600 mg 03/10/19 14:00 Ibuprofen PO 03/12/19 13:59 Q6HR PRN TEMP > 101 Lorazepam 2 mg 03/09/19 21:51 Ativan IV Q15MIN PRN Seizures Midazolam HCl 2 mg 03/09/19 20:35 Versed IV Q10MIN PRN Sedation Multi-Ingred Cream/Lotion/Oil/Oint 1 applic 03/09/19 20:35 Artificial Tears Ophth Oint OU Q4HR PRN Dry Eye(s) Ondansetron HCl 4 mg 03/10/19 01:44 Zofran IV Q8H PRN Nausea And Vomiting Simple Syrup 15 ml 03/10/19 15:00 Simple Syrup FEEDTUBE PRN PRN Hypoglycemia Simple Syrup 30 ml 03/10/19 15:00 Simple Syrup FEEDTUBE PRN PRN Hypoglycemia Sodium Bicarbonate 325 mg 03/10/19 15:00 Sodium Bicarbonate FEEDTUBE PRN PRN For Clogged Feeding Tube Nutrition/Malnutrition Assess - Dietary Evaluation Nutrition/Malnutrition Findings: Nutrition Notes Start: 03/10/19 14:09 Freq: Status: Active Protocol: Document 03/10/19 14:09 RM (Rec: 03/10/19 14:19 RM [id number]) Nutrition Notes Need for Assessment generated from: MD Order Initial or Follow up Assessment Current Diagnosis Sepsis Other Pertinent Diagnosis AMS, GI bleed, Viremia Current Diet No diet ordered Labs/Tests Na 151 Pertinent Medications Vasopressin Height 5 ft 6 in Weight 81.2 kg [place] Body Weight (kg) 64.54 BMI 28.8 Subjective/Other Information Consulted for TF recommendation including order to start TF at 10 ml and to not titrate. Pt on vent. Burn Absent Trauma Absent #1 Nutrition Diagnosis Inadequate oral intake Etiology on vent As Evidenced by Signs and Symptoms no diet ordered Is patient on ventilator? No Is Patient Ambulatory and/or Out of Bed Yes REE-([facility]-ambulatory/OOB) [ [id number] [id number]] Calculation Used for Recommendations [facility] Additional Notes Protein Needs: 97-162g (1.2-2g /kg) Fluid Needs: 1 ml/kcal Nutrition Intervention Nutrition Support: [place] 1.5 at 10 ml/hr. Water flush of 300 mls q 4 hrs until hypernatremia resolves. Kcal 360 Protein (gm) 15 Fluid (mL) 183 Anticipated Discharge Needs: Unable to determine at this time Follow-Up By: 03/14/19 Additional Comments Follow for TF tolerance
[2019-03-11] MEDS: SODIUM BICARBONATE 150 MEQ in D5W 1,000 ML IV SCH ×2 (08:13→19:49)
--- NOTE | 2019-03-11 09:54 | XRay Report ---
CHEST 1 VIEW INDICATION: follow up respiratory failure. COMPARISON: 03/09/2019 FINDINGS: Support devices: The endotracheal tube and nasogastric tube remain in adequate position. Heart: Within normal limits. Lungs/Pleura: No acute air space or interstitial disease. Additional findings: None. IMPRESSION: No acute findings. Signer Name: Didier De La O Jr, MD Signed: 03/11/2019 9:49 AM Workstation Name: [id number]
[2019-03-11] MEDS ORDERED: NACL 0.9% IR PRN (10:14)
[2019-03-11] MEDS ORDERED: ADRENALIN ONE (10:35)
[2019-03-11] MEDS ORDERED: WATER FOR IRRIG STERILE IR PRN (10:36)
[2019-03-11] MEDS ORDERED: WATER FOR IRRIG STERILE ONE (10:41)
[2019-03-11] MEDS: ROCEPHIN/NS 2 GM/100 ML 2 GM/100 ML BAG IV SCH (10:42)
[2019-03-11 11:09] LABS: Calcium 7.1 mg/dL (8.4-10.2)
--- NOTE | 2019-03-11 11:14 | Progress Note ---
Assessment and Plan Cultures: 03/09 BCx - NGTD A/P: 23 yo M no PMHx admitted with altered mental status, sepsis. 1. Sepsis - positive SIRS criteria, extremely high fevers. Unclear etiology as such. Gastroenteritis seen on abdominal CT but does not explain all symptoms. Unclear if some level of central fever involved here vs acute viral illness. INR prohibitive of LP unfortunately. Would continue vancomycin and change ceftriaxone to meningitis dosing (2g q12h) and add metronidazole for empiric meningitis coverage. Would check for tick borne diseases and add doxycycline empirically. 03/11/19 Continue empiric coverage at this time. Despite the worsening renal function I believe the benefit of vancomycin outweighs the risk. Alternative options, such as daptomycin and linezolid poorly penetrate the [employer] and are bacteriostatic, respectively. 2. Acute liver failure - hepatitis negative. INR prohibitive of LP. In [facility]IC 3. Altered mental status 4. Acute respiratory failure 5. Altered mental status - agree with MRI when stable enough for imaging. 6. Hyperthermia - extremely high fever on admission, now on cooling blankets. Recs: - continue ceftriaxone 2g q12h - continue vancomycin - vancomycin troughs - daily renal function evaluation while on vancomycin. - continue metronidazole 500mg q8h - continue doxycycline 100mg q12h - follow up tick borne panel - ordered as miscellaneous test (Ehrlichia, Anaplasma, Rickettsia antibodies) - if possible, LP for analysis and culture - continue acyclovir MD [facility] ([facility] C: [phone] O: [phone] F: [phone] Subjective Date of service: 03/11/19 Interval history: Fevers improved, white count improved. No clinical improvement however, and liver failure continues to worsen. Remains critically ill at this time. Objective - Exam Narrative Exam: Constitutional: intubated, not responsive, diaphoretic Head, Ears, Nose: Normocephalic, atraumatic. External ears, nose normal Eyes: Conjunctivae/corneas clear. No icterus. No ptosis. Neck: Supple, no meningeal signs Oral: fair dentition, moist mucous membranes Cardiovascular: S1, S2 normal. Normal rhythm Respiratory: Good air entry, clear to auscultation bilaterally GI: Soft, non-tender; bowel sounds normal. No peritoneal signs Musculoskeletal: No pedal edema, Skin: No rash or abscess Hem/Lymphatic: No palpable cervical or supraclavicular nodes. No lymphangitis Psych: no agitation Neurological: No spontaneous movements observed - Constitutional Vitals: Vital Signs Temp Pulse Resp BP Pulse Ox 100.1 F H 124 H 24 102/30 100 03/11/19 04:00 03/11/19 08:17 03/11/19 07:01 03/11/19 08:17 03/11/19 08:17 Temperature -Last 24 Hours Temperature 100.1 F Temperature 100.1 F Temperature 101.7 F Temperature 101.1 F Temperature 101.0 F Temperature 100.9 F Temperature 101.0 F - Labs CBC & Chem 7: 03/11/19 03:00 03/11/19 10:15 Labs: Abnormal lab results 03/10/19 03/10/19 03/10/19 Range/Units 08:30 11:12 12:27 RBC (3.65-5.03) M/mm3 Hgb (11.8-15.2) gm/dl Hct (35.5-45.6) % MCHC (32-34) % Plt Count (140-440) K/mm3 Seg Neuts % (Manual) 77.0 H (40.0-70.0) % Lymphocytes % (Manual) 5.0 L (13.4-35.0) % Nucleated RBC % 8.0 H (0.0-0.9) % Seg Neutrophils # Man 14.9 H (1.8-7.7) K/mm3 Lymphocytes # (Manual) 1.0 L (1.2-5.4) K/mm3 Monocytes # (Manual) 1.2 H (0.0-0.8) K/mm3 PT (12.2-14.9) Sec. INR (0.87-1.13) APTT (24.2-36.6) Sec. Fibrinogen (211-480) mg/dl POC ABG pH 7.272 L (7.35-7.45) POC ABG pO2 230 H (80-105) Sodium (137-145) mmol/L Potassium (3.6-5.0) mmol/L Chloride (98-107) mmol/L Carbon Dioxide (22-30) mmol/L BUN (9-20) mg/dL Creatinine (0.8-1.5) mg/dL Glucose (75-100) mg/dL Calcium (8.4-10.2) mg/dL Total Bilirubin (0.1-1.2) mg/dL AST (5-40) units/L ALT (7-56) units/L Lactate Dehydrogenase (91-180) units/L Total Protein (6.3-8.2) g/dL Albumin (3.9-5) g/dL Urine WBC (Auto) 46.0 H (0.0-6.0) /HPF Vancomycin Trough (5.0-20.0) ug/mL 03/10/19 03/10/19 03/11/19 Range/Units 17:40 17:40 00:12 RBC 3.05 L (3.65-5.03) M/mm3 Hgb 9.6 L D (11.8-15.2) gm/dl Hct 27.5 L D (35.5-45.6) % MCHC 35 H (32-34) % Plt Count 63 L D (140-440) K/mm3 Seg Neuts % (Manual) (40.0-70.0) % Lymphocytes % (Manual) (13.4-35.0) % Nucleated RBC % (0.0-0.9) % Seg Neutrophils # Man (1.8-7.7) K/mm3 Lymphocytes # (Manual) (1.2-5.4) K/mm3 Monocytes # (Manual) (0.0-0.8) K/mm3 PT < 10.0 L (12.2-14.9) Sec. INR > 17.67 H* (0.87-1.13) APTT 78.0 H* (24.2-36.6) Sec. Fibrinogen (211-480) mg/dl POC ABG pH (7.35-7.45) POC ABG pO2 (80-105) Sodium (137-145) mmol/L Potassium (3.6-5.0) mmol/L Chloride (98-107) mmol/L Carbon Dioxide (22-30) mmol/L BUN (9-20) mg/dL Creatinine (0.8-1.5) mg/dL Glucose (75-100) mg/dL Calcium (8.4-10.2) mg/dL Total Bilirubin (0.1-1.2) mg/dL AST (5-40) units/L ALT (7-56) units/L Lactate Dehydrogenase (91-180) units/L Total Protein (6.3-8.2) g/dL Albumin (3.9-5) g/dL Urine WBC (Auto) (0.0-6.0) /HPF Vancomycin Trough (5.0-20.0) ug/mL 03/11/19 03/11/19 03/11/19 Range/Units 03:00 03:00 03:00 RBC 3.28 L (3.65-5.03) M/mm3 Hgb 10.4 L (11.8-15.2) gm/dl Hct 29.5 L (35.5-45.6) % MCHC 35 H (32-34) % Plt Count 18 L* (140-440) K/mm3 Seg Neuts % (Manual) (40.0-70.0) % Lymphocytes % (Manual) (13.4-35.0) % Nucleated RBC % (0.0-0.9) % Seg Neutrophils # Man (1.8-7.7) K/mm3 Lymphocytes # (Manual) (1.2-5.4) K/mm3 Monocytes # (Manual) (0.0-0.8) K/mm3 PT (12.2-14.9) Sec. INR (0.87-1.13) APTT (24.2-36.6) Sec. Fibrinogen < 60 L* (211-480) mg/dl POC ABG pH (7.35-7.45) POC ABG pO2 (80-105) Sodium 154 H (137-145) mmol/L Potassium (3.6-5.0) mmol/L Chloride 134.8 H (98-107) mmol/L Carbon Dioxide (22-30) mmol/L BUN 7 L (9-20) mg/dL Creatinine 0.7 L (0.8-1.5) mg/dL Glucose (75-100) mg/dL Calcium (8.4-10.2) mg/dL Total Bilirubin 2.00 H (0.1-1.2) mg/dL AST (5-40) units/L ALT 277 H (7-56) units/L Lactate Dehydrogenase (91-180) units/L Total Protein (6.3-8.2) g/dL Albumin 1.3 L (3.9-5) g/dL Urine WBC (Auto) (0.0-6.0) /HPF Vancomycin Trough (5.0-20.0) ug/mL 03/11/19 03/11/19 03/11/19 Range/Units 04:50 05:00 05:02 RBC (3.65-5.03) M/mm3 Hgb (11.8-15.2) gm/dl Hct (35.5-45.6) % MCHC (32-34) % Plt Count (140-440) K/mm3 Seg Neuts % (Manual) (40.0-70.0) % Lymphocytes % (Manual) (13.4-35.0) % Nucleated RBC % (0.0-0.9) % Seg Neutrophils # Man (1.8-7.7) K/mm3 Lymphocytes # (Manual) (1.2-5.4) K/mm3 Monocytes # (Manual) (0.0-0.8) K/mm3 PT 63.7 H (12.2-14.9) Sec. INR 7.60 H* (0.87-1.13) APTT (24.2-36.6) Sec. Fibrinogen (211-480) mg/dl POC ABG pH 7.557 H (7.35-7.45) POC ABG pO2 141 H (80-105) Sodium 153 H (137-145) mmol/L Potassium 2.2 L* D (3.6-5.0) mmol/L Chloride 130.9 H (98-107) mmol/L Carbon Dioxide 13 L (22-30) mmol/L BUN (9-20) mg/dL Creatinine 1.8 H D (0.8-1.5) mg/dL Glucose (75-100) mg/dL Calcium 7.2 L D (8.4-10.2) mg/dL Total Bilirubin 4.80 H (0.1-1.2) mg/dL AST 4959 H (5-40) units/L ALT 2465 H (7-56) units/L Lactate Dehydrogenase 3877 H (91-180) units/L Total Protein 4.7 L D (6.3-8.2) g/dL Albumin 3.0 L (3.9-5) g/dL Urine WBC (Auto) (0.0-6.0) /HPF Vancomycin Trough (5.0-20.0) ug/mL 03/11/19 03/11/19 03/11/19 Range/Units 07:00 08:19 10:15 RBC (3.65-5.03) M/mm3 Hgb (11.8-15.2) gm/dl Hct (35.5-45.6) % MCHC (32-34) % Plt Count (140-440) K/mm3 Seg Neuts % (Manual) (40.0-70.0) % Lymphocytes % (Manual) (13.4-35.0) % Nucleated RBC % (0.0-0.9) % Seg Neutrophils # Man (1.8-7.7) K/mm3 Lymphocytes # (Manual) (1.2-5.4) K/mm3 Monocytes # (Manual) (0.0-0.8) K/mm3 PT (12.2-14.9) Sec. INR (0.87-1.13) APTT (24.2-36.6) Sec. Fibrinogen (211-480) mg/dl POC ABG pH (7.35-7.45) POC ABG pO2 136 H (80-105) Sodium 153 H (137-145) mmol/L Potassium (3.6-5.0) mmol/L Chloride 114.9 H (98-107) mmol/L Carbon Dioxide 16 L (22-30) mmol/L BUN (9-20) mg/dL Creatinine 2.0 H (0.8-1.5) mg/dL Glucose 65 L (75-100) mg/dL Calcium 7.1 L (8.4-10.2) mg/dL Total Bilirubin (0.1-1.2) mg/dL AST (5-40) units/L ALT (7-56) units/L Lactate Dehydrogenase (91-180) units/L Total Protein (6.3-8.2) g/dL Albumin (3.9-5) g/dL Urine WBC (Auto) (0.0-6.0) /HPF Vancomycin Trough 22.9 H (5.0-20.0) ug/mL
--- NOTE | 2019-03-11 11:17 | Progress Note ---
Assessment and Plan Acute hypoxemic respiratory failure, now on mechanical ventilatory support. Disseminated intravascular coagulation. Non-ST elevation myocardial infarction. Acute encephalopathy. Severe dehydration. Thrombocytopenia. Severe metabolic acidosis. Hyponatremia. Hypokalemia. Lactic acidosis. Elevated serum transaminases. Hypochloremia. - if seizures, focal deficits or persistent AMS develop may nee to repeat CT brain to r/o acute bleed - suspect significant element of IVVD still - bolused 1 liter IVNS (EF 55-60%) then run at 150 mls/hour X 2 liters - continue volume resuscitation otherwise as per nephrology - nephrology consult for AZAR - continue to wean supplemental oxygen to keep O2 sats>90% - received 2 packs of cryoprecipitate then will repeat fibrinogen level - received platelets and 4 units FFP's also - massive transfusion protocol strategies - stop PPI drip if ok with GI team - VAP bundle addressed - prn bronchodilators with pulmonary hygiene per RT - continue lung protective strategies - continue enteric nutrition via feeding tube at goal rate as tolerated - continue antiinfective's per ID rec's (de-escalate based on clinical and microbiologic data) - continue SCD's for VTE prophylaxis, monitor platelet counts. - continue to monitor for bleeding - continue mobility protocols to prevent pressure ulcers - Cardio-protective measures - continue to avoid nephrotoxins, adjust all medications for GFR, CrcL - Azotemia per nephrology team otherwise - continue to wean vasopressors to keep MAP > 65 mmHg (adding vasopressin) - continue chronic disease med's per attending - daily SAT's and SBT assessment as tolerated - Titrate sedation to RASS 0 to -1 - continue accuchecks with glycemic control per SSI for target blood glucose 140 - 180 mg/dL acutely - Agitation management - Prevention of delirium, maintenance of sleep-wake cycle - VTE and Stress ulcer prophylaxis - continue other care per attending / other consultants ...... car plan discussed at length with mother at bedside .... re-evaluate in am & prn CONDITION: CRITICAL PROGNOSIS: GUARDED CODE STATUS: FULL The high probability of a clinically significant, sudden or life-threatening deterioration of the [neurologic, respiratory, hematologic and cardiac] system(s) required my full and direct attention, intervention and personal management. The aggregate critical care time was [75] minutes without overlap. Time includes spent on; [x] Data Review and interpretation [x] Patient assessment and monitoring of vital signs [x] Documentation [x] Medication orders and management Subjective Date of service: 03/11/19 Principal diagnosis: Ac hypoxemic resp failure; DIC; NSTEMI; Ac encephalopathy; Thrombocytopenia Interval history: Patient is seen today for: Acute hypoxemic respiratory failure; DIC; NSTEMI; Acute encephalopathy; Severe dehydration; Thrombocytopenia; Severe metabolic acidosis; Hyponatremia; Hypokalemia; Lactic acidosis; Elevated serum transaminases; Hypochloremia. Seen and examined at bedside; 24hour events reviewed; nursing and respiratory care staff consulted; no adverse overnight events reported to me; remains on MVS; AMS a little more pronounced but now with AZAR and on a fentanyl drip; has weaned off neosynephrine but remains on Levophed drip at 12 mics/min and vasopressin at 0.03 units/min Objective Vital Signs - 12hr 03/10/19 03/10/19 03/10/19 23:21 23:30 23:41 Temperature Pulse Rate 98 H 96 H 105 H Pulse Rate [ From Monitor] Respiratory 30 H 30 H 30 H Rate Blood Pressure 140/83 139/78 139/78 O2 Sat by Pulse 100 100 100 Oximetry 03/10/19 03/10/19 03/11/19 23:42 23:51 00:00 Temperature 100.1 F H Pulse Rate 105 H 115 H 109 H Pulse Rate [ 109 H From Monitor] Respiratory 31 H 30 H Rate Blood Pressure 139/78 107/51 O2 Sat by Pulse 100 100 100 Oximetry 03/11/19 03/11/19 03/11/19 00:01 00:11 00:21 Temperature Pulse Rate 103 H 116 H 103 H Pulse Rate [ From Monitor] Respiratory 30 H 27 H 30 H Rate Blood Pressure 107/51 139/78 139/44 O2 Sat by Pulse 100 100 100 Oximetry 03/11/19 03/11/19 03/11/19 00:31 00:41 00:50 Temperature Pulse Rate 100 H 97 H 96 H Pulse Rate [ From Monitor] Respiratory 30 H 30 H 30 H Rate Blood Pressure 132/69 139/44 128/77 O2 Sat by Pulse 100 100 100 Oximetry 03/11/19 03/11/19 03/11/19 01:00 01:11 01:21 Temperature Pulse Rate 80 87 85 Pulse Rate [ From Monitor] Respiratory 30 H 30 H 30 H Rate Blood Pressure 147/87 128/77 143/80 O2 Sat by Pulse 100 100 100 Oximetry 03/11/19 03/11/19 03/11/19 01:31 01:41 01:51 Temperature Pulse Rate 84 82 85 Pulse Rate [ From Monitor] Respiratory 30 H 30 H 30 H Rate Blood Pressure 143/80 143/80 143/85 O2 Sat by Pulse 100 100 100 Oximetry 03/11/19 03/11/19 03/11/19 02:01 02:11 02:21 Temperature Pulse Rate 93 H 92 H 92 H Pulse Rate [ From Monitor] Respiratory 30 H 30 H 30 H Rate Blood Pressure 125/72 125/72 130/61 O2 Sat by Pulse 100 100 100 Oximetry 03/11/19 03/11/19 03/11/19 02:31 02:41 02:51 Temperature Pulse Rate 90 89 94 H Pulse Rate [ From Monitor] Respiratory 30 H 30 H 30 H Rate Blood Pressure 134/69 130/61 135/77 O2 Sat by Pulse 100 100 100 Oximetry 03/11/19 03/11/19 03/11/19 02:55 03:01 03:11 Temperature Pulse Rate 87 95 H 93 H Pulse Rate [ From Monitor] Respiratory 30 H 30 H Rate Blood Pressure 128/77 132/75 132/75 O2 Sat by Pulse 100 100 100 Oximetry 03/11/19 03/11/19 03/11/19 03:21 03:31 03:41 Temperature Pulse Rate 96 H 99 H 101 H Pulse Rate [ From Monitor] Respiratory 30 H 30 H 30 H Rate Blood Pressure 146/77 136/74 146/77 O2 Sat by Pulse 100 100 100 Oximetry 03/11/19 03/11/19 03/11/19 03:51 04:00 04:01 Temperature 100.1 F H Pulse Rate 101 H 102 H 100 H Pulse Rate [ 102 H From Monitor] Respiratory 30 H 30 H 30 H Rate Blood Pressure 132/70 137/63 O2 Sat by Pulse 100 100 100 Oximetry 03/11/19 03/11/19 03/11/19 04:11 04:21 04:31 Temperature Pulse Rate 100 H 101 H 94 H Pulse Rate [ From Monitor] Respiratory 30 H 30 H 30 H Rate Blood Pressure 137/63 128/65 128/67 O2 Sat by Pulse 100 100 100 Oximetry 08/09/19 08/09/19 08/09/19 04:41 04:51 05:00 Temperature Pulse Rate 109 H 102 H 99 H Pulse Rate [ From Monitor] Respiratory 30 H 30 H 30 H Rate Blood Pressure 128/67 128/64 126/58 O2 Sat by Pulse 100 100 100 Oximetry 03/11/19 03/11/19 03/11/19 05:11 05:21 05:30 Temperature Pulse Rate 103 H 106 H 107 H Pulse Rate [ From Monitor] Respiratory 24 24 24 Rate Blood Pressure 126/58 121/61 130/67 O2 Sat by Pulse 100 100 100 Oximetry 03/11/19 03/11/19 03/11/19 05:41 05:51 06:00 Temperature Pulse Rate 110 H 109 H 109 H Pulse Rate [ From Monitor] Respiratory 24 24 24 Rate Blood Pressure 130/67 129/65 123/65 O2 Sat by Pulse 100 100 100 Oximetry 03/11/19 03/11/19 03/11/19 06:11 06:21 06:30 Temperature Pulse Rate 108 H 109 H 109 H Pulse Rate [ From Monitor] Respiratory 24 24 24 Rate Blood Pressure 123/65 123/66 117/64 O2 Sat by Pulse 100 100 100 Oximetry 03/11/19 03/11/19 03/11/19 06:41 06:51 07:01 Temperature Pulse Rate 108 H 110 H 114 H Pulse Rate [ From Monitor] Respiratory 24 24 24 Rate Blood Pressure 117/64 117/64 117/64 O2 Sat by Pulse 100 100 100 Oximetry 03/11/19 08:17 Temperature Pulse Rate 124 H Pulse Rate [ From Monitor] Respiratory Rate Blood Pressure 102/30 O2 Sat by Pulse 100 Oximetry Constitutional: appears uncomfortable, other (young AM resting in bed with mildly increased resp effort at rest) ENT: oropharynx moist, other (ETT 24 cm SHWETA) Neck: supple, no lymphadenopathy, no JVD, other (+ facial edema) Effort: mildly labored Ascultation: Bilateral: clear Percussion: Bilateral: not dull Cardiovascular: regular rate and rhythm, other (No R/M) Gastrointestinal: normoactive bowel sounds, hypoactive bowel sounds, soft, non- tender, non-distended Integumentary: normal Extremities: no cyanosis, pink and warm, pulses normal, no ischemia or petechiae Neurologic: pupils equal and round, unable to assess Psychiatric: other (unable to assess re: AMS) CBC and BMP: 03/11/19 03:00 03/11/19 10:15 ABG, PT/INR, D-dimer: ABG POC ABG pH 7.403 (7.35-7.45) 03/11/19 08:19 POC ABG pO2 136 (80-105) H 03/11/19 08:19 POC ABG HCO3 17.4 (22-26 mml/L) 03/11/19 08:19 POC ABG Total CO2 18 (23-27mmol/L) 03/11/19 08:19 POC ABG O2 Sat 99 03/11/19 08:19 PT/INR, D-dimer PT 63.7 Sec. (12.2-14.9) H 03/11/19 04:50 INR 7.60 (0.87-1.13) H* 03/11/19 04:50 > 04721 ng/mlDDU (0-234) H 03/09/19 00:00 Abnormal lab findings: Abnormal Labs 03/09/19 03/09/19 03/09/19 00:00 20:14 21:25 WBC RBC 5.53 H Hgb 17.2 H Hct 50.3 H MCHC Plt Count 89 L Seg Neuts % (Manual) Lymphocytes % (Manual) 48.0 H Nucleated RBC % Seg Neutrophils # Man Lymphocytes # (Manual) Monocytes # (Manual) PT INR APTT Fibrinogen 60 L* D-Dimer > 72270 H POC ABG pH POC ABG pO2 Sodium Potassium Chloride Carbon Dioxide BUN Creatinine Glucose POC Glucose 221 H Lactic Acid Calcium Magnesium Total Bilirubin AST ALT Lactate Dehydrogenase Total Creatine Kinase CK-MB (CK-2) Troponin T Total Protein Albumin HDL Cholesterol Urine WBC (Auto) Vancomycin Trough Salicylates Acetaminophen Valproic Acid 03/09/19 03/09/19 03/09/19 21:25 21:51 22:20 WBC RBC Hgb Hct MCHC Plt Count Seg Neuts % (Manual) Lymphocytes % (Manual) Nucleated RBC % Seg Neutrophils # Man Lymphocytes # (Manual) Monocytes # (Manual) PT 38.3 H INR 3.98 H APTT 115.3 H* Fibrinogen D-Dimer POC ABG pH 7.286 L POC ABG pO2 Sodium 150 H Potassium 3.4 L Chloride 115.1 H Carbon Dioxide 18 L BUN Creatinine Glucose 216 H POC Glucose Lactic Acid Calcium Magnesium 1.60 L Total Bilirubin AST 283 H ALT 113 H Lactate Dehydrogenase Total Creatine Kinase 691 H CK-MB (CK-2) Troponin T 2.890 H* Total Protein 6.1 L Albumin 3.6 L HDL Cholesterol Urine WBC (Auto) Vancomycin Trough Salicylates Acetaminophen Valproic Acid 03/09/19 03/09/19 03/09/19 22:20 22:20 22:20 WBC RBC Hgb Hct MCHC Plt Count Seg Neuts % (Manual) Lymphocytes % (Manual) Nucleated RBC % Seg Neutrophils # Man Lymphocytes # (Manual) Monocytes # (Manual) PT INR APTT Fibrinogen D-Dimer POC ABG pH POC ABG pO2 Sodium Potassium Chloride Carbon Dioxide BUN Creatinine Glucose POC Glucose Lactic Acid Calcium Magnesium Total Bilirubin AST ALT Lactate Dehydrogenase 1167 H Total Creatine Kinase CK-MB (CK-2) Troponin T Total Protein Albumin HDL Cholesterol Urine WBC (Auto) Vancomycin Trough Salicylates < 0.3 L Acetaminophen < 5.0 L Valproic Acid < 2.8 L 03/09/19 03/10/19 03/10/19 23:20 01:45 01:50 WBC RBC Hgb Hct MCHC Plt Count Seg Neuts % (Manual) Lymphocytes % (Manual) Nucleated RBC % Seg Neutrophils # Man Lymphocytes # (Manual) Monocytes # (Manual) PT INR APTT Fibrinogen D-Dimer POC ABG pH POC ABG pO2 Sodium Potassium Chloride Carbon Dioxide BUN Creatinine Glucose POC Glucose Lactic Acid 4.50 H* 2.90 H* Calcium Magnesium Total Bilirubin AST ALT Lactate Dehydrogenase Total Creatine Kinase 1019 H CK-MB (CK-2) 23.6 H Troponin T 2.250 H* D Total Protein Albumin HDL Cholesterol 23 L Urine WBC (Auto) Vancomycin Trough Salicylates Acetaminophen Valproic Acid 03/10/19 03/10/19 03/10/19 03:43 05:57 05:57 WBC RBC Hgb Hct MCHC Plt Count Seg Neuts % (Manual) Lymphocytes % (Manual) Nucleated RBC % Seg Neutrophils # Man Lymphocytes # (Manual) Monocytes # (Manual) PT 57.2 H INR 6.63 H* APTT > 240.0 H* Fibrinogen D-Dimer POC ABG pH 7.240 L POC ABG pO2 Sodium 151 H Potassium Chloride 124.3 H Carbon Dioxide 12 L BUN Creatinine Glucose POC Glucose Lactic Acid Calcium 7.2 L Magnesium Total Bilirubin 1.70 H AST 1257 H ALT 528 H Lactate Dehydrogenase Total Creatine Kinase 1123 H CK-MB (CK-2) 27.2 H Troponin T 2.310 H* Total Protein 4.9 L Albumin 2.8 L HDL Cholesterol Urine WBC (Auto) Vancomycin Trough Salicylates Acetaminophen Valproic Acid 03/10/19 03/10/19 03/10/19 06:00 08:30 08:30 WBC 20.1 H 19.3 H RBC Hgb Hct MCHC 35 H Plt Count 14 L* 10 L* Seg Neuts % (Manual) 75.0 H 77.0 H Lymphocytes % (Manual) 5.0 L Nucleated RBC % 8.0 H 8.0 H Seg Neutrophils # Man 14.4 H 14.9 H Lymphocytes # (Manual) 1.0 L Monocytes # (Manual) 1.2 H PT INR APTT Fibrinogen D-Dimer POC ABG pH POC ABG pO2 Sodium 151 H Potassium Chloride 126.9 H Carbon Dioxide 8 L* BUN Creatinine Glucose 30 L* POC Glucose Lactic Acid Calcium 6.1 L D Magnesium Total Bilirubin 1.60 H AST 1494 H ALT 615 H Lactate Dehydrogenase Total Creatine Kinase CK-MB (CK-2) Troponin T Total Protein 3.9 L D Albumin 2.3 L HDL Cholesterol Urine WBC (Auto) Vancomycin Trough Salicylates Acetaminophen Valproic Acid 03/10/19 03/10/19 03/10/19 08:55 11:12 12:27 WBC RBC Hgb Hct MCHC Plt Count Seg Neuts % (Manual) Lymphocytes % (Manual) Nucleated RBC % Seg Neutrophils # Man Lymphocytes # (Manual) Monocytes # (Manual) PT INR APTT Fibrinogen D-Dimer POC ABG pH 7.272 L POC ABG pO2 230 H Sodium Potassium Chloride Carbon Dioxide BUN Creatinine Glucose POC Glucose Lactic Acid 4.40 H* Calcium Magnesium Total Bilirubin AST ALT Lactate Dehydrogenase Total Creatine Kinase CK-MB (CK-2) Troponin T Total Protein Albumin HDL Cholesterol Urine WBC (Auto) 46.0 H Vancomycin Trough Salicylates Acetaminophen Valproic Acid 03/10/19 03/10/19 03/10/19 17:40 17:40 Unknown WBC RBC 3.05 L Hgb 9.6 L D Hct 27.5 L D MCHC 35 H Plt Count 63 L D Seg Neuts % (Manual) Lymphocytes % (Manual) Nucleated RBC % Seg Neutrophils # Man Lymphocytes # (Manual) Monocytes # (Manual) PT < 10.0 L INR > 17.67 H* APTT Fibrinogen D-Dimer POC ABG pH POC ABG pO2 Sodium Potassium Chloride Carbon Dioxide BUN Creatinine Glucose POC Glucose Lactic Acid 5.10 H* Calcium Magnesium Total Bilirubin AST ALT Lactate Dehydrogenase Total Creatine Kinase CK-MB (CK-2) Troponin T Total Protein Albumin HDL Cholesterol Urine WBC (Auto) Vancomycin Trough Salicylates Acetaminophen Valproic Acid 03/11/19 03/11/19 03/11/19 00:12 03:00 03:00 WBC RBC 3.28 L Hgb 10.4 L Hct 29.5 L MCHC 35 H Plt Count 18 L* Seg Neuts % (Manual) Lymphocytes % (Manual) Nucleated RBC % Seg Neutrophils # Man Lymphocytes # (Manual) Monocytes # (Manual) PT INR APTT 78.0 H* Fibrinogen D-Dimer POC ABG pH POC ABG pO2 Sodium 154 H Potassium Chloride 134.8 H Carbon Dioxide BUN 7 L Creatinine 0.7 L Glucose POC Glucose Lactic Acid Calcium Magnesium Total Bilirubin 2.00 H AST ALT 277 H Lactate Dehydrogenase Total Creatine Kinase CK-MB (CK-2) Troponin T Total Protein Albumin 1.3 L HDL Cholesterol Urine WBC (Auto) Vancomycin Trough Salicylates Acetaminophen Valproic Acid 03/11/19 03/11/19 03/11/19 03:00 04:50 05:00 WBC RBC Hgb Hct MCHC Plt Count Seg Neuts % (Manual) Lymphocytes % (Manual) Nucleated RBC % Seg Neutrophils # Man Lymphocytes # (Manual) Monocytes # (Manual) PT 63.7 H INR 7.60 H* APTT Fibrinogen < 60 L* D-Dimer POC ABG pH POC ABG pO2 Sodium 153 H Potassium 2.2 L* D Chloride 130.9 H Carbon Dioxide 13 L BUN Creatinine 1.8 H D Glucose POC Glucose Lactic Acid Calcium 7.2 L D Magnesium Total Bilirubin 4.80 H AST 4959 H ALT 2465 H Lactate Dehydrogenase 3877 H Total Creatine Kinase CK-MB (CK-2) Troponin T Total Protein 4.7 L D Albumin 3.0 L HDL Cholesterol Urine WBC (Auto) Vancomycin Trough Salicylates Acetaminophen Valproic Acid 03/11/19 03/11/19 03/11/19 05:02 07:00 08:19 WBC RBC Hgb Hct MCHC Plt Count Seg Neuts % (Manual) Lymphocytes % (Manual) Nucleated RBC % Seg Neutrophils # Man Lymphocytes # (Manual) Monocytes # (Manual) PT INR APTT Fibrinogen D-Dimer POC ABG pH 7.557 H POC ABG pO2 141 H 136 H Sodium Potassium Chloride Carbon Dioxide BUN Creatinine Glucose POC Glucose Lactic Acid Calcium Magnesium Total Bilirubin AST ALT Lactate Dehydrogenase Total Creatine Kinase CK-MB (CK-2) Troponin T Total Protein Albumin HDL Cholesterol Urine WBC (Auto) Vancomycin Trough 22.9 H Salicylates Acetaminophen Valproic Acid 03/11/19 10:15 WBC RBC Hgb Hct MCHC Plt Count Seg Neuts % (Manual) Lymphocytes % (Manual) Nucleated RBC % Seg Neutrophils # Man Lymphocytes # (Manual) Monocytes # (Manual) PT INR APTT Fibrinogen D-Dimer POC ABG pH POC ABG pO2 Sodium 153 H Potassium Chloride 114.9 H Carbon Dioxide 16 L BUN Creatinine 2.0 H Glucose 65 L POC Glucose Lactic Acid Calcium 7.1 L Magnesium Total Bilirubin AST ALT Lactate Dehydrogenase Total Creatine Kinase CK-MB (CK-2) Troponin T Total Protein Albumin HDL Cholesterol Urine WBC (Auto) Vancomycin Trough Salicylates Acetaminophen Valproic Acid Chest x-ray: image reviewed (ETT in good position; no acute process otherwise) Allied health notes reviewed: nursing
[2019-03-11] MEDS ORDERED: NACL 0.9% 500 ML 500 ML ONE (11:45)
[2019-03-11] MEDS: POTASSIUM CHLORIDE FEEDTUBE SCH ×2 (12:55→16:58)
[2019-03-11] MEDS ORDERED: NACL 0.9% 500 ML 500 ML IV SCH (13:00)
[2019-03-11] MEDS ORDERED: NACL 0.9% 1000 ML 1,000 ML IV ONE ×2 (13:30→21:35)
--- NOTE | 2019-03-11 13:34 | Consultation ---
History of Present Illness - Reason for Consult Consult date: 03/11/19 acute renal failure, hypokalemia - History of Present Illness The patient is a 23 YO male with no significant medical history who was brought to ED by EMS after being found unresponsive, foaming at the mouth by family at home. Unable to get any history from patient and there was no family members at the bedside. He was not feeling well with headache and fever 2 days prior to presentation. Upon arrival to ED, he was found to be hypotensive and temp of 106.6. He was having narrow complex tachycardia however he did not respond to Adenosine and Cardiovertion X 2. he was intubated for airway protection. He was also found to have multiple metabolic abnormalities, severe thrombocytopenia, WBC 20K, severe coagulopathy, elevated transaminases, and elevated lactic acid. He is currently in ICU, unresponsive on vent and pressor support (Levophed and Vasopressin), received cooling measures and empiric antibiotics for septic shock. Creatinine increased to 3.1 from around 1.3. Nephrology was consulted for further evaluation. Past History Past Medical History: No medical history Past Surgical History: No surgical history Social history: no significant social history. denies: alcohol abuse, IV drug use Family history: no significant family history (per family) Medications and Allergies Allergies Allergy/AdvReac Type Severity Reaction Status Date / Time No Known Allergies Allergy Verified 03/09/19 20:47 Home Medications Medication Instructions Recorded Confirmed Last Taken Type Unobtainable 03/09/19 03/09/19 Unknown History Active Meds: Active Medications Lipase/Protease/Amylase (Pancreaze Dr 10,500 Unit) 1 each FEEDTUBE PRN PRN PRN Reason: For Clogged Feeding Tube Fentanyl (Sublimaze) 50 mcg IV Q10MIN PRN PRN Reason: ANALGESIA Hydrophilic Ointment (Vaseline Lip Therapy) 1 applic TP Q2HR PRN PRN Reason: Dry Lips Fentanyl Citrate (Fentanyl Drip Premix) 2,000 mcg in 100 mls @ 4.082 mls/hr IV TITR SHAYLEE; Protocol Last Titration: 03/11/19 08:23 Dose: 1 mcg/kg/hr, 4.082 mls/hr Documented by: Midazolam HCl 100 mg/ Sodium (Chloride) 100 mls @ 2 mls/hr IV TITR SHAYLEE; Protocol Last Titration: 03/10/19 07:00 Dose: 0 mg/hr, 0 mls/hr Documented by: Vasopressin 20 unit/ Sodium (Chloride) 101 mls @ 9.09 mls/hr IV TITR SHAYLEE; Protocol Last Titration: 03/11/19 09:20 Dose: 0 units/min, 0 mls/hr Documented by: Phenylephrine HCl 100 mg/ (Sodium Chloride) 100 mls @ 3 mls/hr IV TITR SHAYLEE; Protocol Last Titration: 03/10/19 17:05 Dose: 0 mcg/min, 0 mls/hr Documented by: Sodium Bicarbonate 150 meq/ (Dextrose) 1,150 mls @ 42 mls/hr IV DIRECT SHAYLEE Last Admin: 03/11/19 08:13 Dose: 42 mls/hr Documented by: Norepinephrine 8 mg/ Sodium (Chloride) 250 mls @ 3.75 mls/hr IV TITR SHAYLEE; Protocol Last Titration: 03/11/19 12:36 Dose: 16 mcg/min, 30 mls/hr Documented by: Ceftriaxone Sodium (Rocephin/Ns 2 Gm/100 Ml) 2 gm in 100 mls @ 200 mls/hr IV Q12HR SHAYLEE; Protocol Last Admin: 03/11/19 10:42 Dose: 200 mls/hr Documented by: Metronidazole (Flagyl 500 Mg/100 Ml) 500 mg in 100 mls @ 100 mls/hr IV Q8HR SHAYLEE; Protocol Last Admin: 03/11/19 05:57 Dose: 100 mls/hr Documented by: Doxycycline Hyclate 100 mg/ (Sodium Chloride) 250 mls @ 250 mls/hr IV Q12HR SHAYLEE; Protocol Last Admin: 03/11/19 10:58 Dose: 250 mls/hr Documented by: Acyclovir 800 mg/ Sodium (Chloride) 116 mls @ 100 mls/hr IV Q24HR SHAYLEE; Protocol Sodium Chloride (Nacl 0.9% 1000 Ml) 1,000 mls @ 999 mls/hr IV BOLUS ONE Stop: 03/11/19 14:30 Ibuprofen (Ibuprofen) 600 mg PO Q6HR PRN PRN Reason: TEMP > 101 Stop: 03/12/19 13:59 Lorazepam (Ativan) 2 mg IV Q15MIN PRN PRN Reason: Seizures Midazolam HCl (Versed) 2 mg IV Q10MIN PRN PRN Reason: Sedation Multi-Ingred Cream/Lotion/Oil/Oint (Artificial Tears Ophth Oint) 1 applic OU Q4HR PRN PRN Reason: Dry Eye(s) Ondansetron HCl (Zofran) 4 mg IV Q8H PRN PRN Reason: Nausea And Vomiting Pantoprazole Sodium (Protonix) 40 mg IV BID SHAYLEE Potassium Chloride (Potassium Chloride) 40 meq FEEDTUBE Q4H SHAYLEE Stop: 03/11/19 16:01 Simple Syrup (Simple Syrup) 15 ml FEEDTUBE PRN PRN PRN Reason: Hypoglycemia Simple Syrup (Simple Syrup) 30 ml FEEDTUBE PRN PRN PRN Reason: Hypoglycemia Sodium Bicarbonate (Sodium Bicarbonate) 325 mg FEEDTUBE PRN PRN PRN Reason: For Clogged Feeding Tube Sterile Water (Water For Irrig Sterile) 2,000 ml IR PRN PRN PRN Reason: FOR COOLING BLANKET Review of Systems ROS unobtainable: due to mental status Exam - Vital Signs Vital signs: Vital Signs Pulse Resp 178 H 29 H 03/09/19 20:08 03/09/19 20:08 - General Appearance General appearance: well-developed, appears stated age, intubated, other (on vent) EENT: other (bleeding from nostrils) Neck: Present: neck supple, trachea midline Respiratory: Clear to Ascultation Heart: tachycardia, S1S2, no murmurs Gastrointestinal: Present: normoactive bowel sounds. Absent: tenderness Integumentary: no rash Neurologic: obtunded Musculoskeletal: Present: other (trace extremity edema noted) Results - Lab Results 03/11/19 13:43 03/11/19 13:43 Most recent lab results Calcium 7.1 mg/dL (8.4-10.2) L 03/11/19 10:15 Phosphorus 2.50 mg/dL (2.5-4.5) 03/11/19 05:00 Magnesium 2.00 mg/dL (1.7-2.3) 03/10/19 01:50 Assessment and Plan 1. Acute kidney injury: Vasomotor AZAR in the setting of septic shock. CT abdomen was negative for hydro. Creatinine trending upwards. Continue IV fluids. Monitor renal function. Renal prognosis is guarded. Avoid nephrotoxic agents. Meds dosage based on GFR. 2. FEN: Anion gap Metabolic acidosis, on bicarbonate drip. Hypernatremia, monitor. Monitor lytes. 3. Septic shock: On Levophed and Vasopressin. 4. Respiratory failure: On vent. 5. Metabolic Encephalopathy. 6. ?DIC. 7. Shock liver syndrome: Followed by GI. 8. Hyperthermia. 9. Rhabdomyolysis. 10.Possible Viremia. 11. Cardiomyopathy.
--- NOTE | 2019-03-11 13:35 | Gastroenterology Progress Note ---
Assessment and Plan 1.GI bleed -temp 99.2-improving -WBC 8.3-trended down -H/H 10.4/29.5-stable -continue to monitor H/H and transfuse as needed -plt 18 -INR 7.60- receiving FFP -PT/PTT elevated, fibrinogen 60 -patient remains critically ill in ICU, unresponsive on vent and pressor support receiving cooling measures. Bleeding has improved with NGT/rectal tube output decreased. -etiology-most likely 2/2 DIC -no plan for scope at this time -hold blood thinning medications -continue PPI and antibiotics per ID recommendations -hematology following -continue supportive care 2. elevated LFTs/shock liver syndrome -LFTs- T.kelsey 4.80, AST 4959, ALT 2465, alk phos 108 -acetaminophen <5.0, UDS negative, HIV, RPR, and hepatitis panel negative -etiology-labs most c/w acute ischemic injury -continue to trend labs and supportive care 3.Acute respiratory failure 4.Acute Toxic and Metabolic Encephalopathy 5.Hyperthermia 6.Severe Sepsis (LP pending once INR normalizes) 7.Septic Shock 8.Secondary Coagulopathy with Presumed DIC 9.Rhabdomylysis 10.Possible Viremia 11.Metabolic Acidosis 12.Hypernatermia 13.Cardiomyopathy with presumed Type 2 FL secondary to shock syndrome LFTs most c/w acute ischemic injury. Will continue to follow. Subjective Date of service: 03/11/19 Principal diagnosis: UGIB Interval history: Patient remains in critical condition in ICU on vent and pressor support. Bleeding has improved with NGT output decreased. Objective - Constitutional Vitals: Temp Pulse Resp BP Pulse Ox 99.2 F 140 H 27 H 124/23 100 03/11/19 12:34 03/11/19 12:31 03/11/19 12:31 03/11/19 12:31 03/11/19 12:31 General appearance: other (in ICU on vent and pressor support) - EENT ENT: other (+ETT, +NGT) - Respiratory Respiratory: bilateral: CTA - Cardiovascular Rhythm: other (tachycardia) - Gastrointestinal General gastrointestinal: Present: soft, non-tender, hypoactive bowel sounds, other (+rectal tube dark stool-decreased in amount) - Labs CBC & Chem 7: 03/11/19 03:00 03/11/19 10:15 Labs: Laboratory Results - last 24 hr 03/09/19 03/10/19 03/10/19 21:25 17:40 17:40 WBC 9.0 RBC 3.05 L Hgb 9.6 L D Hct 27.5 L D MCV 90 MCH 31 MCHC 35 H RDW 13.7 Plt Count 63 L D PT < 10.0 L INR > 17.67 H* APTT Fibrinogen POC ABG pH POC ABG pO2 POC ABG HCO3 POC ABG Total CO2 POC ABG O2 Sat POC ABG Base Excess FiO2 Sodium Potassium Chloride Carbon Dioxide Anion Gap BUN Creatinine Estimated GFR BUN/Creatinine Ratio Glucose Calcium Phosphorus Total Bilirubin AST ALT Alkaline Phosphatase Lactate Dehydrogenase Total Protein Albumin Albumin/Globulin Ratio Vancomycin Trough RPR Nonreactive Blood Type 03/11/19 03/11/19 03/11/19 00:12 00:12 03:00 WBC 8.3 RBC 3.28 L Hgb 10.4 L Hct 29.5 L MCV 90 MCH 32 MCHC 35 H RDW 13.4 Plt Count 18 L* PT INR APTT 78.0 H* Fibrinogen POC ABG pH POC ABG pO2 POC ABG HCO3 POC ABG Total CO2 POC ABG O2 Sat POC ABG Base Excess FiO2 Sodium Potassium Chloride Carbon Dioxide Anion Gap BUN Creatinine Estimated GFR BUN/Creatinine Ratio Glucose Calcium Phosphorus Total Bilirubin AST ALT Alkaline Phosphatase Lactate Dehydrogenase Total Protein Albumin Albumin/Globulin Ratio Vancomycin Trough RPR Blood Type O POSITIVE 03/11/19 03/11/19 03/11/19 03:00 03:00 04:50 WBC RBC Hgb Hct MCV MCH MCHC RDW Plt Count PT 63.7 H INR 7.60 H* APTT Fibrinogen < 60 L* POC ABG pH POC ABG pO2 POC ABG HCO3 POC ABG Total CO2 POC ABG O2 Sat POC ABG Base Excess FiO2 Sodium 154 H Potassium TNR Chloride 134.8 H Carbon Dioxide TNR Anion Gap TNR BUN 7 L Creatinine 0.7 L Estimated GFR > 60 BUN/Creatinine Ratio 10 Glucose 77 Calcium TNR Phosphorus Total Bilirubin 2.00 H AST TNR ALT 277 H Alkaline Phosphatase 57 Lactate Dehydrogenase TNR Total Protein TNR Albumin 1.3 L Albumin/Globulin Ratio 1.2 Vancomycin Trough RPR Blood Type 03/11/19 03/11/19 03/11/19 05:00 05:00 05:02 WBC RBC Hgb Hct MCV MCH MCHC RDW Plt Count PT INR APTT Fibrinogen POC ABG pH 7.557 H POC ABG pO2 141 H POC ABG HCO3 14.5 POC ABG Total CO2 15 POC ABG O2 Sat 100 POC ABG Base Excess -8 FiO2 30 Sodium 153 H Potassium 2.2 L* D Chloride 130.9 H Carbon Dioxide 13 L Anion Gap 11 BUN 15 Creatinine 1.8 H D Estimated GFR 47 BUN/Creatinine Ratio 8 Glucose 88 Calcium 7.2 L D Phosphorus 2.50 Total Bilirubin 4.80 H AST 4959 H ALT 2465 H Alkaline Phosphatase 108 Lactate Dehydrogenase 3877 H Total Protein 4.7 L D Albumin 3.0 L Albumin/Globulin Ratio 1.8 Vancomycin Trough RPR Blood Type 03/11/19 03/11/19 03/11/19 07:00 07:00 08:19 WBC RBC Hgb Hct MCV MCH MCHC RDW Plt Count PT INR APTT Fibrinogen POC ABG pH 7.403 POC ABG pO2 136 H POC ABG HCO3 17.4 POC ABG Total CO2 18 POC ABG O2 Sat 99 POC ABG Base Excess -7 FiO2 30 Sodium Potassium Chloride Carbon Dioxide Anion Gap BUN Creatinine Estimated GFR BUN/Creatinine Ratio Glucose Calcium Phosphorus Total Bilirubin AST ALT Alkaline Phosphatase Lactate Dehydrogenase Total Protein Albumin Albumin/Globulin Ratio Vancomycin Trough 22.9 H RPR Blood Type O POSITIVE 03/11/19 10:15 WBC RBC Hgb Hct MCV MCH MCHC RDW Plt Count PT INR APTT Fibrinogen POC ABG pH POC ABG pO2 POC ABG HCO3 POC ABG Total CO2 POC ABG O2 Sat POC ABG Base Excess FiO2 Sodium 153 H Potassium 3.6 D Chloride 114.9 H Carbon Dioxide 16 L Anion Gap 26 BUN 15 Creatinine 2.0 H Estimated GFR 42 BUN/Creatinine Ratio 8 Glucose 65 L Calcium 7.1 L Phosphorus Total Bilirubin AST ALT Alkaline Phosphatase Lactate Dehydrogenase Total Protein Albumin Albumin/Globulin Ratio Vancomycin Trough RPR Blood Type
--- NOTE | 2019-03-11 13:36 | Procedure Note ---
Date of procedure: 03/11/19 Pre-op diagnosis: Severe Sepsis Post-op diagnosis: same Procedure: USS Guided Right Femoral CVL placement (Full dictation # [id number]) Please see dictated notes for full details
[2019-03-11] MEDS ORDERED: ALBURX 25% (ALBUMIN) IV ONE (14:00)
[2019-03-11 14:02] LABS: Hematocrit 27.1 % (35.5-45.6); Hemoglobin 9.2 gm/dl (11.8-15.2); Mean Corpuscular HGB Conc 34 % (32-34); Mean Corpuscular Volume 94 fl (84-94); Red Blood Count 2.89 M/mm3 (3.65-5.03); Red Cell Distribution Width 14.3 % (13.2-15.2)
[2019-03-11 14:03] LABS: Platelet Count 34 K/mm3 (140-440)
[2019-03-11 14:18] LABS: Calcium 7.1 mg/dL (8.4-10.2)
--- NOTE | 2019-03-11 14:40 | Event Note ---
Date: 03/11/19 Patient remains hypotensive lactic acidemia is worsening serum transaminases rising still suspect viral syndrome at play but fear he may ultimately require higher level of supportive care +/- even ECMO prior to overall resolution .... will discuss transfer to [place] with attending
[2019-03-11] MEDS: NEO-SYNEPHRINE 100 MG in NACL 0.9% 90 ML IV SCH (14:45)
[2019-03-11 14:52] LABS: Creatinine,Urine 113.1 mg/dL (0.1-20.0)
[2019-03-11] MEDS ORDERED: D50W (25GM) Syringe IV ONE (14:52)
[2019-03-11] MEDS ORDERED: D5W 1,000 ML IV SCH (15:00)
[2019-03-11] MEDS: Vasostrict 20 UNIT in NACL 0.9% 100 ML IV SCH ×2 (15:15)
[2019-03-11 15:53] LABS: Creatine Kinase MB 10.7 ng/mL (0.0-4.0)
[2019-03-11 16:30] LABS: INR 5.73 (0.87-1.13); Partial Thromboplastin Time 62.6 Sec. (24.2-36.6)
[2019-03-11 20:28] VITALS: BP 109/47
[2019-03-11] MEDS ORDERED: D50W (25GM) Vial IV ONE (20:36)
[2019-03-11] MEDS ORDERED: ADRENALIN 8 MG in NACL 0.9% 250ML 242 ML IV SCH (21:48)
[2019-03-11] MEDS ORDERED: PROTONIX IV SCH (22:00)
--- NOTE | 2019-03-11 22:13 | Progress Note ---
Assessment and Plan Patient is a 23 y/o man w/ no significant past medical history, who presents with altered mental status since. On admission, patient was noted to have a fever of 106, an upper GI bleed, he was noted to have hypotension with ventricular tachycardia, thrombocytopenia, leukocytosis, coagulopathy with increased INR, lactic acidosis, and required pressor support. According the patient's clinical findings, it is likely that his altered mental status is due to metabolic encephalopathy given his multiple metabolic derangements. It is also possible that the patient has a viral or bacterial meningo-encephalitis, as the patient was complaining of headaches and fevers on Thursday. It is also possible that the patient has had seizures, however EEG did not show any evidence of seizures. Plan: 1. Metabolic encephalopathy: - Urine drug screen negative - Check MRI brain w/wo when patient is stable enough to undergo MRI - EEG did not reveal any seizures or epileptiform activity. - Recommend CT head, as patient has had a decline in mental status from yesterday, and is noted to have b/l ankle clonus today. - Patient currently on pressor support due to hypotension. - GI following for upper GI bleed - ID following, patient empirically being treated for meningitis/encephalitis. Cont. Abx/anti-viral treatment per ID recs. - Unable to perform LP safely at this time, due to coagulopathy. Will consider once INR normalizes. - Will not recommend AED at this time, as no evidence of seizures on EEG. - Cont. to correct metabolic/infectious abnormalities per primary/ID/ICU teams. -Will sign off, as I am not covering the weekend. Please re-consult neurologist that is covering tomorrow, as patient will require close neurologic monitoring. - Plan of care discussed with family and primary team. Eddie Carlson MD Neurology - Patient Problems (1) Metabolic encephalopathy Current Visit: Yes Status: Acute Subjective Date of service: 03/11/19 Principal diagnosis: UGIB Interval history: Patient less responsive today. Continues to require vasopressor support. Remains intubated and sedated. Objective - Exam Narrative Exam: Mental status: Patient is intubated, sedated. Does not respond to vocal or pain stimulus. Patient not noted to have any spontaneous movement. No w/d to deep pain st imulus. b/l ankle clonus noted. Pupils b/l sluggish. Cough, gag intact. - Vital Sign Vital Signs - 12hr 03/11/19 03/11/19 03/11/19 10:11 10:21 10:31 Temperature Pulse Rate 140 H 137 H 136 H Pulse Rate [ From Monitor] Respiratory 23 24 24 Rate Blood Pressure 156/135 124/31 123/34 O2 Sat by Pulse 98 97 98 Oximetry 03/11/19 03/11/19 03/11/19 10:41 10:51 11:00 Temperature Pulse Rate 135 H 134 H 136 H Pulse Rate [ From Monitor] Respiratory 24 24 21 Rate Blood Pressure 123/34 119/30 111/97 O2 Sat by Pulse 99 98 99 Oximetry 03/11/19 03/11/19 03/11/19 11:11 11:21 11:31 Temperature Pulse Rate 137 H 138 H 138 H Pulse Rate [ From Monitor] Respiratory 24 24 25 H Rate Blood Pressure 111/97 116/33 119/29 O2 Sat by Pulse 97 98 99 Oximetry 03/11/19 03/11/19 03/11/19 11:41 11:44 11:45 Temperature 99.1 F 99.1 F Pulse Rate 140 H Pulse Rate [ From Monitor] Respiratory 26 H Rate Blood Pressure 119/29 O2 Sat by Pulse 98 Oximetry 03/11/19 03/11/19 03/11/19 11:51 12:00 12:01 Temperature 99.1 F Pulse Rate 140 H 140 H Pulse Rate [ 154 H From Monitor] Respiratory 25 H 30 H 25 H Rate Blood Pressure 113/25 109/23 O2 Sat by Pulse 97 100 97 Oximetry 03/11/19 03/11/19 03/11/19 12:11 12:19 12:21 Temperature Pulse Rate 139 H 139 H 139 H Pulse Rate [ From Monitor] Respiratory 24 25 H Rate Blood Pressure 109/23 109/23 120/27 O2 Sat by Pulse 98 98 98 Oximetry 03/11/19 03/11/19 03/11/19 12:31 12:33 12:34 Temperature 99.2 F 99.2 F Pulse Rate 140 H Pulse Rate [ From Monitor] Respiratory 27 H Rate Blood Pressure 124/23 O2 Sat by Pulse 100 Oximetry 03/11/19 03/11/19 03/11/19 12:41 12:51 13:01 Temperature Pulse Rate 141 H 142 H 144 H Pulse Rate [ From Monitor] Respiratory 26 H 26 H 25 H Rate Blood Pressure 125/26 120/22 129/26 O2 Sat by Pulse 99 99 98 Oximetry 03/11/19 03/11/19 03/11/19 13:11 13:21 13:30 Temperature Pulse Rate 144 H 144 H 145 H Pulse Rate [ From Monitor] Respiratory 28 H 25 H 25 H Rate Blood Pressure 129/26 108/20 112/27 O2 Sat by Pulse 99 98 98 Oximetry 03/11/19 03/11/19 03/11/19 13:41 13:51 14:00 Temperature Pulse Rate 144 H 145 H 144 H Pulse Rate [ From Monitor] Respiratory 27 H 28 H 23 Rate Blood Pressure 112/27 113/23 109/25 O2 Sat by Pulse 98 97 98 Oximetry 03/11/19 03/11/19 03/11/19 14:11 14:21 14:31 Temperature Pulse Rate 145 H 145 H 145 H Pulse Rate [ From Monitor] Respiratory 28 H 29 H 30 H Rate Blood Pressure 109/25 112/25 114/26 O2 Sat by Pulse 99 97 98 Oximetry 03/11/19 03/11/19 03/11/19 14:41 14:51 15:01 Temperature Pulse Rate 146 H 146 H 146 H Pulse Rate [ From Monitor] Respiratory 29 H 28 H 29 H Rate Blood Pressure 114/26 117/22 136/22 O2 Sat by Pulse 96 96 97 Oximetry 03/11/19 03/11/19 03/11/19 15:11 15:21 15:31 Temperature Pulse Rate 148 H 151 H 152 H Pulse Rate [ From Monitor] Respiratory 28 H 28 H 28 H Rate Blood Pressure 136/22 91/13 91/13 O2 Sat by Pulse 94 94 93 Oximetry 03/11/19 03/11/19 03/11/19 15:41 15:51 16:00 Temperature 97.5 F L Pulse Rate 154 H 156 H 157 H Pulse Rate [ 157 H From Monitor] Respiratory 27 H 26 H 30 H Rate Blood Pressure 91/13 91/13 O2 Sat by Pulse 91 90 96 Oximetry 03/11/19 03/11/19 03/11/19 16:01 16:11 16:21 Temperature Pulse Rate 158 H 156 H 156 H Pulse Rate [ From Monitor] Respiratory 28 H 27 H 25 H Rate Blood Pressure 91/13 91/13 122/54 O2 Sat by Pulse 88 99 99 Oximetry 08/04/2103/11/19 03/11/19 16:31 16:41 16:51 Temperature Pulse Rate 157 H 158 H 157 H Pulse Rate [ From Monitor] Respiratory 26 H 27 H 27 H Rate Blood Pressure 130/50 130/50 132/42 O2 Sat by Pulse 98 95 96 Oximetry 03/11/19 03/11/19 03/11/19 17:01 17:11 17:21 Temperature Pulse Rate 157 H 157 H 156 H Pulse Rate [ From Monitor] Respiratory 27 H 27 H 29 H Rate Blood Pressure 124/47 124/47 124/41 O2 Sat by Pulse 95 95 95 Oximetry 03/11/19 03/11/19 03/11/19 17:26 17:31 17:41 Temperature Pulse Rate 156 H 155 H 154 H Pulse Rate [ From Monitor] Respiratory 30 H 28 H Rate Blood Pressure 124/41 117/36 117/36 O2 Sat by Pulse 96 93 95 Oximetry 03/11/19 03/11/19 03/11/19 17:51 18:01 18:11 Temperature Pulse Rate 155 H 155 H 154 H Pulse Rate [ From Monitor] Respiratory 27 H 27 H 27 H Rate Blood Pressure 112/38 112/38 112/38 O2 Sat by Pulse 96 93 93 Oximetry 03/11/19 03/11/19 03/11/19 18:21 18:31 18:41 Temperature Pulse Rate 154 H 153 H 153 H Pulse Rate [ From Monitor] Respiratory 29 H 29 H 29 H Rate Blood Pressure 104/35 106/34 106/34 O2 Sat by Pulse 94 95 93 Oximetry 03/11/19 03/11/19 03/11/19 18:51 19:01 19:11 Temperature Pulse Rate 152 H 152 H 152 H Pulse Rate [ From Monitor] Respiratory 29 H 30 H 31 H Rate Blood Pressure 105/38 112/48 104/35 O2 Sat by Pulse 94 94 95 Oximetry 03/11/19 03/11/19 03/11/19 19:21 19:31 19:41 Temperature Pulse Rate 152 H 151 H 151 H Pulse Rate [ From Monitor] Respiratory 29 H 29 H 30 H Rate Blood Pressure 96/71 99/34 99/34 O2 Sat by Pulse 94 94 94 Oximetry 03/11/19 03/11/19 03/11/19 19:51 20:00 20:01 Temperature 99.7 F H Pulse Rate 150 H 149 H Pulse Rate [ From Monitor] Respiratory 31 H 29 H Rate Blood Pressure 96/35 116/35 O2 Sat by Pulse 94 94 Oximetry 03/11/19 03/11/19 03/11/19 20:11 20:21 20:25 Temperature Pulse Rate 149 H 147 H 147 H Pulse Rate [ From Monitor] Respiratory 31 H 30 H Rate Blood Pressure 116/35 109/47 109/47 O2 Sat by Pulse 93 92 93 Oximetry - General Apperance Constitutional: acutely ill - EENT EENT: other (pupils sluggih b/l. blood noted in rosemary-oral area) - Respiratory Respiratory: decreased breath sounds - Cardiovascular Cardiovascular: other (tachycardia noted) Extremities: no clubbing, cyanosis, no ischemia or petechiae - Gastrointestinal Gastrointestinal: hypoactive bowel sounds, non-distended - Integumentary Integumentary: normal - Neurologic Reflexes: 3+: ankle (b/l clonus noted), bicep, knee, tricep - Laboratory Findings CBC and BMP: 03/11/19 13:43 03/11/19 13:43 Abnormal Lab Findings: Abnormal Labs 03/09/19 03/09/19 03/09/19 00:00 20:14 21:25 WBC RBC 5.53 H Hgb 17.2 H Hct 50.3 H MCHC Plt Count 89 L Seg Neuts % (Manual) Lymphocytes % (Manual) 48.0 H Nucleated RBC % Seg Neutrophils # Man Lymphocytes # (Manual) Monocytes # (Manual) PT INR APTT Fibrinogen 60 L* D-Dimer > 28533 H POC ABG pH POC ABG pO2 Sodium Potassium Chloride Carbon Dioxide BUN Creatinine Glucose POC Glucose 221 H Lactic Acid Calcium Magnesium Total Bilirubin AST ALT Alkaline Phosphatase Lactate Dehydrogenase Total Creatine Kinase CK-MB (CK-2) Troponin T Total Protein Albumin HDL Cholesterol Urine WBC (Auto) Urine Creatinine Vancomycin Trough Salicylates Acetaminophen Valproic Acid 03/09/19 03/09/19 03/09/19 21:25 21:51 22:20 WBC RBC Hgb Hct MCHC Plt Count Seg Neuts % (Manual) Lymphocytes % (Manual) Nucleated RBC % Seg Neutrophils # Man Lymphocytes # (Manual) Monocytes # (Manual) PT 38.3 H INR 3.98 H APTT 115.3 H* Fibrinogen D-Dimer POC ABG pH 7.286 L POC ABG pO2 Sodium 150 H Potassium 3.4 L Chloride 115.1 H Carbon Dioxide 18 L BUN Creatinine Glucose 216 H POC Glucose Lactic Acid Calcium Magnesium 1.60 L Total Bilirubin AST 283 H ALT 113 H Alkaline Phosphatase Lactate Dehydrogenase Total Creatine Kinase 691 H CK-MB (CK-2) Troponin T 2.890 H* Total Protein 6.1 L Albumin 3.6 L HDL Cholesterol Urine WBC (Auto) Urine Creatinine Vancomycin Trough Salicylates Acetaminophen Valproic Acid 03/09/19 03/09/19 03/09/19 22:20 22:20 22:20 WBC RBC Hgb Hct MCHC Plt Count Seg Neuts % (Manual) Lymphocytes % (Manual) Nucleated RBC % Seg Neutrophils # Man Lymphocytes # (Manual) Monocytes # (Manual) PT INR APTT Fibrinogen D-Dimer POC ABG pH POC ABG pO2 Sodium Potassium Chloride Carbon Dioxide BUN Creatinine Glucose POC Glucose Lactic Acid Calcium Magnesium Total Bilirubin AST ALT Alkaline Phosphatase Lactate Dehydrogenase 1167 H Total Creatine Kinase CK-MB (CK-2) Troponin T Total Protein Albumin HDL Cholesterol Urine WBC (Auto) Urine Creatinine Vancomycin Trough Salicylates < 0.3 L Acetaminophen < 5.0 L Valproic Acid < 2.8 L 03/09/19 03/10/19 03/10/19 23:20 01:45 01:50 WBC RBC Hgb Hct MCHC Plt Count Seg Neuts % (Manual) Lymphocytes % (Manual) Nucleated RBC % Seg Neutrophils # Man Lymphocytes # (Manual) Monocytes # (Manual) PT INR APTT Fibrinogen D-Dimer POC ABG pH POC ABG pO2 Sodium Potassium Chloride Carbon Dioxide BUN Creatinine Glucose POC Glucose Lactic Acid 4.50 H* 2.90 H* Calcium Magnesium Total Bilirubin AST ALT Alkaline Phosphatase Lactate Dehydrogenase Total Creatine Kinase 1019 H CK-MB (CK-2) 23.6 H Troponin T 2.250 H* D Total Protein Albumin HDL Cholesterol 23 L Urine WBC (Auto) Urine Creatinine Vancomycin Trough Salicylates Acetaminophen Valproic Acid 03/10/19 03/10/19 03/10/19 03:43 05:57 05:57 WBC RBC Hgb Hct MCHC Plt Count Seg Neuts % (Manual) Lymphocytes % (Manual) Nucleated RBC % Seg Neutrophils # Man Lymphocytes # (Manual) Monocytes # (Manual) PT 57.2 H INR 6.63 H* APTT > 240.0 H* Fibrinogen D-Dimer POC ABG pH 7.240 L POC ABG pO2 Sodium 151 H Potassium Chloride 124.3 H Carbon Dioxide 12 L BUN Creatinine Glucose POC Glucose Lactic Acid Calcium 7.2 L Magnesium Total Bilirubin 1.70 H AST 1257 H ALT 528 H Alkaline Phosphatase Lactate Dehydrogenase Total Creatine Kinase 1123 H CK-MB (CK-2) 27.2 H Troponin T 2.310 H* Total Protein 4.9 L Albumin 2.8 L HDL Cholesterol Urine WBC (Auto) Urine Creatinine Vancomycin Trough Salicylates Acetaminophen Valproic Acid 03/10/19 03/10/19 03/10/19 06:00 08:30 08:30 WBC 20.1 H 19.3 H RBC Hgb Hct MCHC 35 H Plt Count 14 L* 10 L* Seg Neuts % (Manual) 75.0 H 77.0 H Lymphocytes % (Manual) 5.0 L Nucleated RBC % 8.0 H 8.0 H Seg Neutrophils # Man 14.4 H 14.9 H Lymphocytes # (Manual) 1.0 L Monocytes # (Manual) 1.2 H PT INR APTT Fibrinogen D-Dimer POC ABG pH POC ABG pO2 Sodium 151 H Potassium Chloride 126.9 H Carbon Dioxide 8 L* BUN Creatinine Glucose 30 L* POC Glucose Lactic Acid Calcium 6.1 L D Magnesium Total Bilirubin 1.60 H AST 1494 H ALT 615 H Alkaline Phosphatase Lactate Dehydrogenase Total Creatine Kinase CK-MB (CK-2) Troponin T Total Protein 3.9 L D Albumin 2.3 L HDL Cholesterol Urine WBC (Auto) Urine Creatinine Vancomycin Trough Salicylates Acetaminophen Valproic Acid 03/10/19 03/10/19 03/10/19 08:55 11:12 12:27 WBC RBC Hgb Hct MCHC Plt Count Seg Neuts % (Manual) Lymphocytes % (Manual) Nucleated RBC % Seg Neutrophils # Man Lymphocytes # (Manual) Monocytes # (Manual) PT INR APTT Fibrinogen D-Dimer POC ABG pH 7.272 L POC ABG pO2 230 H Sodium Potassium Chloride Carbon Dioxide BUN Creatinine Glucose POC Glucose Lactic Acid 4.40 H* Calcium Magnesium Total Bilirubin AST ALT Alkaline Phosphatase Lactate Dehydrogenase Total Creatine Kinase CK-MB (CK-2) Troponin T Total Protein Albumin HDL Cholesterol Urine WBC (Auto) 46.0 H Urine Creatinine Vancomycin Trough Salicylates Acetaminophen Valproic Acid 03/10/19 03/10/19 03/10/19 17:40 17:40 Unknown WBC RBC 3.05 L Hgb 9.6 L D Hct 27.5 L D MCHC 35 H Plt Count 63 L D Seg Neuts % (Manual) Lymphocytes % (Manual) Nucleated RBC % Seg Neutrophils # Man Lymphocytes # (Manual) Monocytes # (Manual) PT < 10.0 L INR > 17.67 H* APTT Fibrinogen D-Dimer POC ABG pH POC ABG pO2 Sodium Potassium Chloride Carbon Dioxide BUN Creatinine Glucose POC Glucose Lactic Acid 5.10 H* Calcium Magnesium Total Bilirubin AST ALT Alkaline Phosphatase Lactate Dehydrogenase Total Creatine Kinase CK-MB (CK-2) Troponin T Total Protein Albumin HDL Cholesterol Urine WBC (Auto) Urine Creatinine Vancomycin Trough Salicylates Acetaminophen Valproic Acid 03/11/19 03/11/19 03/11/19 00:12 03:00 03:00 WBC RBC 3.28 L Hgb 10.4 L Hct 29.5 L MCHC 35 H Plt Count 18 L* Seg Neuts % (Manual) Lymphocytes % (Manual) Nucleated RBC % Seg Neutrophils # Man Lymphocytes # (Manual) Monocytes # (Manual) PT INR APTT 78.0 H* Fibrinogen D-Dimer POC ABG pH POC ABG pO2 Sodium 154 H Potassium Chloride 134.8 H Carbon Dioxide BUN 7 L Creatinine 0.7 L Glucose POC Glucose Lactic Acid Calcium Magnesium Total Bilirubin 2.00 H AST ALT 277 H Alkaline Phosphatase Lactate Dehydrogenase Total Creatine Kinase CK-MB (CK-2) Troponin T Total Protein Albumin 1.3 L HDL Cholesterol Urine WBC (Auto) Urine Creatinine Vancomycin Trough Salicylates Acetaminophen Valproic Acid 03/11/19 03/11/19 03/11/19 03:00 04:50 05:00 WBC RBC Hgb Hct MCHC Plt Count Seg Neuts % (Manual) Lymphocytes % (Manual) Nucleated RBC % Seg Neutrophils # Man Lymphocytes # (Manual) Monocytes # (Manual) PT 63.7 H INR 7.60 H* APTT Fibrinogen < 60 L* D-Dimer POC ABG pH POC ABG pO2 Sodium 153 H Potassium 2.2 L* D Chloride 130.9 H Carbon Dioxide 13 L BUN Creatinine 1.8 H D Glucose POC Glucose Lactic Acid Calcium 7.2 L D Magnesium Total Bilirubin 4.80 H AST 4959 H ALT 2465 H Alkaline Phosphatase Lactate Dehydrogenase 3877 H Total Creatine Kinase CK-MB (CK-2) Troponin T Total Protein 4.7 L D Albumin 3.0 L HDL Cholesterol Urine WBC (Auto) Urine Creatinine Vancomycin Trough Salicylates Acetaminophen Valproic Acid 03/11/19 03/11/19 03/11/19 05:02 07:00 08:19 WBC RBC Hgb Hct MCHC Plt Count Seg Neuts % (Manual) Lymphocytes % (Manual) Nucleated RBC % Seg Neutrophils # Man Lymphocytes # (Manual) Monocytes # (Manual) PT INR APTT Fibrinogen D-Dimer POC ABG pH 7.557 H POC ABG pO2 141 H 136 H Sodium Potassium Chloride Carbon Dioxide BUN Creatinine Glucose POC Glucose Lactic Acid Calcium Magnesium Total Bilirubin AST ALT Alkaline Phosphatase Lactate Dehydrogenase Total Creatine Kinase CK-MB (CK-2) Troponin T Total Protein Albumin HDL Cholesterol Urine WBC (Auto) Urine Creatinine Vancomycin Trough 22.9 H Salicylates Acetaminophen Valproic Acid 03/11/19 03/11/19 03/11/19 10:15 13:43 13:43 WBC 15.5 H RBC 2.89 L Hgb 9.2 L Hct 27.1 L MCHC Plt Count 34 L Seg Neuts % (Manual) Lymphocytes % (Manual) Nucleated RBC % Seg Neutrophils # Man Lymphocytes # (Manual) Monocytes # (Manual) PT INR APTT Fibrinogen D-Dimer POC ABG pH POC ABG pO2 Sodium 153 H Potassium Chloride 114.9 H Carbon Dioxide 16 L BUN Creatinine 2.0 H Glucose 65 L POC Glucose Lactic Acid 18.50 H* Calcium 7.1 L Magnesium Total Bilirubin AST ALT Alkaline Phosphatase Lactate Dehydrogenase Total Creatine Kinase CK-MB (CK-2) Troponin T Total Protein Albumin HDL Cholesterol Urine WBC (Auto) Urine Creatinine Vancomycin Trough Salicylates Acetaminophen Valproic Acid 03/11/19 03/11/19 03/11/19 13:43 14:20 15:06 WBC RBC Hgb Hct MCHC Plt Count Seg Neuts % (Manual) Lymphocytes % (Manual) Nucleated RBC % Seg Neutrophils # Man Lymphocytes # (Manual) Monocytes # (Manual) PT INR APTT Fibrinogen D-Dimer POC ABG pH POC ABG pO2 Sodium 153 H Potassium Chloride 111.3 H Carbon Dioxide 10 L BUN Creatinine 3.1 H D Glucose 21 L* POC Glucose Lactic Acid 19.70 H* Calcium 7.1 L Magnesium Total Bilirubin 5.30 H AST 81897 H ALT 9378 H Alkaline Phosphatase 216 H Lactate Dehydrogenase Total Creatine Kinase CK-MB (CK-2) Troponin T Total Protein 5.0 L Albumin 3.0 L HDL Cholesterol Urine WBC (Auto) Urine Creatinine 113.1 H Vancomycin Trough Salicylates Acetaminophen Valproic Acid 03/11/19 03/11/19 15:06 15:14 WBC RBC Hgb Hct MCHC Plt Count Seg Neuts % (Manual) Lymphocytes % (Manual) Nucleated RBC % Seg Neutrophils # Man Lymphocytes # (Manual) Monocytes # (Manual) PT 51.0 H INR 5.73 H* APTT 62.6 H* Fibrinogen 88 L* D-Dimer POC ABG pH POC ABG pO2 Sodium Potassium Chloride Carbon Dioxide BUN Creatinine Glucose POC Glucose Lactic Acid Calcium Magnesium Total Bilirubin AST ALT Alkaline Phosphatase Lactate Dehydrogenase Total Creatine Kinase 1498 H CK-MB (CK-2) 10.7 H Troponin T 1.670 H* D Total Protein Albumin HDL Cholesterol Urine WBC (Auto) Urine Creatinine Vancomycin Trough Salicylates Acetaminophen Valproic Acid
[2019-03-11 22:33] LABS: Hematocrit 26.5 % (35.5-45.6); Hemoglobin 7.9 gm/dl (11.8-15.2); Mean Corpuscular HGB Conc 30 % (32-34); Mean Corpuscular Volume 102 fl (84-94); Red Blood Count 2.61 M/mm3 (3.65-5.03); Red Cell Distribution Width 16.6 % (13.2-15.2)
[2019-03-11 22:34] LABS: Platelet Count 46 K/mm3 (140-440)
--- NOTE | 2019-03-11 23:09 | Event Note ---
Date: 03/09/19
--- NOTE | 2019-03-12 00:25 | Procedure Note ---
PROCEDURE: Right femoral central vascular line placement. INDICATIONS: Severe sepsis, disseminated intravascular coagulation, need for IV access for rapid infusion of blood products as well as instillation of vasopressors into the systemic circulation. Consent was informed and witness obtained from the patient's mom. COMPLICATIONS: No immediate procedural complications. PROCEDURE DETAILS: After informed and witnessed consent, the patient already been on a fentanyl drip at 1 mcg/kg per hour. The area of the right femoral triangle was sterilely prepped and draped. Strict barrier technique was used throughout including hat, mask, gown, sterile gloves, and full sterile barrier protection. Generous local anesthetic agent was used at the area of insertion of the needle. The procedure was an ultrasound-guided placement. The ultrasound probe had been sterilely prepared. Under direct visualization, the central venous needle that came with the case was directed towards the right femoral vein. The vein was hit on the first try. Good venous looking blood return was obtained without significant pulsations. A wire was threaded through the needle. Catheter was advanced over the wire after dilatation with the dilator provided. The central vascular line ports were flushed with sterile water. The line itself was sutured in place with 0 silk sutures. There was no immediate bleeding at the stoma site. The patient achieved relative hemostasis at this region despite his coagulopathy. The area is going to be sterilely draped and dressed by the nurse. The patient tolerated the procedure well. No immediate procedural complications. RECOMMENDATIONS: Okay to use right femoral CVL. JOB# [id number] DIMITRIOS/ADIA VAN
--- NOTE | 2019-03-12 08:14 | Death Summary ---
Summary - Providers Date of service: 03/11/19 Consults: 03/09/19 20:28 Consult to Physician [CONS] Urgent Comment: DR JEAN WASHINGTON W/DR DENTON @[id number] Consulting Provider: TIARRA CERDA Physician Instructions: Reason For Exam: ams resp failure 03/09/19 20:35 Consult to Dietitian/Nutrition [CONS] Routine Physician Instructions: Reason For Exam: Reason for Consult: Evaluate nutritional intake 03/09/19 23:00 Consult to Physician [CONS] Urgent Comment: DR MAYNOR WASHINGTON W/DR SIGALA @[id number] Consulting Provider: CHICA STONE Physician Instructions: Reason For Exam: ugib 03/09/19 23:11 Consult to Physician [CONS] Urgent Comment: Consulting Provider: YUE DOMINGUEZ Physician Instructions: Reason For Exam: sirs 03/10/19 07:20 Consult to Physician [CONS] Routine Comment: Consulting Provider: DELFINA MAN Physician Instructions: Reason For Exam: AMS 03/10/19 07:23 Consult to PICC Line RN [CONS] Stat Reason For Exam: ACCESS Type Line:: PICC 03/10/19 07:40 Consult to Physician [CONS] Routine Comment: Consulting Provider: PERLA MONTIEL Physician Instructions: Reason For Exam: DIC 03/10/19 11:52 Consult to Dietitian/Nutrition [CONS] Routine Physician Instructions: Start Ft at 10 mls/hr. Do not titrate Reason For Exam: Tube Feeding Reason for Consult: Write/Manage Tube Feeding 03/11/19 08:06 Consult to Physician [CONS] Routine Comment: Consulting Provider: ANDREE MCKINNEY Physician Instructions: Reason For Exam: AZAR Attending: LUKE CORNELIUS MD - summary Date of admission: 03/09/19 23:46 Date of : 03/11/19
--- NOTE | 2019-03-12 08:42 | Event Note ---
Date: 04/11/19 PATIENT WAS ON THE HELICOPTER STRETCHER ABOUT TO BE TRANSFERED TO [facility] BY THE HELICOPTER CREW WHEN A CODE BLUE WAS CALLED AT ABOUT 2119. O/E ; CPR WAS IN PROGRESS USING ACLS PROTOCOL, PATIENT WAS ALREADY INTUBATED AND MAXED OUT ON I.V VASOPRESSIN, LEVOPHED AND NEOSYNEPHRINE. AND WAS ALSO ON I.V BICARBONATE DRIP. I.V N/SALINE 1 LITRE WAS GIVEN BOLUS AND PATIENT REGAINED PULSE WITH LOW BLOOD PRESSURE WITH SYSTOLIC IN THE 80'S. I.V EPINEPHRINE DRIP WAS ORDERED . PATIENT WENT INTO SECOND CARDIOPULMONARY ARREST AT 2216 AND W CPR WAS DONE THE SECOND TIME FOR ABOUT FEW MUNITES AND PATIENT REGAINED PULSE WITH LOW BLOOD PRESSURE. THE HELICOPTER CREW WHEELED PATIENT TO THE BLAND WAY ON THE WAY OUT AT ABOUT 6 AND PATIENT CODED FOR THE 3RD TIME AND HE WAS WHEELED BACK INTO THE ROOM WITH CPR DONE FOR FULL 30 MUNITES USING FULL ACLS PROTOCOL BUT PATIENT WAS NOT SUCESSFULLY RESUCITATED THIS TIME AND WAS PRONOUNCED AT 11.06 PM AND FAMILY MEMBERS WERE AROUND AND NOTIFIED.
--- NOTE | 2019-03-12 08:49 | Event Note ---
Date: 04/12/19 PATIENT UNDERWENT 3 ROUNDS OF CPR INTERVENTION AND PUPILS WERE FIXED AND DILATED . THERE WAS NO SPONTANEOUS RESPIRATION .CARDIAC IMPULSE OR AIR MOVEMENT ON AUSCULTAION PATIENT WAS PRONOUNCED AT 11:06 PM AND FAMILY WERE NOTIFIED.
[2019-03-12] MEDS ORDERED: ZOVIRAX 800 MG in NACL 0.9% 100 ML IV SCH (10:00)
== END 2019-03-11 23:06 | DRG 871 ==
LOC: ED 20:07 → CC1 23:46
PROVIDERS: ADMIT Internal Medicine; ATTEND Internal Medicine
PROC: 5A1945Z Respiratory Ventilation, 24-96 Consecutive Hours (ICD-10-PCS; principal; 2019-03-09)
PROC: 0BH17EZ Insertion of Endotracheal Airway into Trachea, Via Natural or Artificial Opening (ICD-10-PCS; 2019-03-09)
PROC: 4A033R1 Measurement of Arterial Saturation, Peripheral, Percutaneous Approach (ICD-10-PCS; 2019-03-09)
PROC: 30233K1 Transfusion of Nonautologous Frozen Plasma into Peripheral Vein, Percutaneous Approach (ICD-10-PCS; 2019-03-10)
PROC: 30233R1 Transfusion of Nonautologous Platelets into Peripheral Vein, Percutaneous Approach (ICD-10-PCS; 2019-03-10)
PROC: 30233M1 Transfusion of Nonautologous Plasma Cryoprecipitate into Peripheral Vein, Percutaneous Approach (ICD-10-PCS; 2019-03-10)
PROC: 5A12012 Performance of Cardiac Output, Single, Manual (ICD-10-PCS; 2019-03-11)
PROC: 06HY33Z Insertion of Infusion Device into Lower Vein, Percutaneous Approach (ICD-10-PCS; 2019-03-11)
PROC: B54BZZA Ultrasonography of Right Lower Extremity Veins, Guidance (ICD-10-PCS; 2019-03-11)
DX: A41.9 Sepsis, unspecified organism (principal); J96.00 Acute respiratory failure, unspecified whether with hypoxia or hypercapnia; G92 Toxic encephalopathy; R65.21 Severe sepsis with septic shock; I21.A1 Myocardial infarction type 2; K72.00 Acute and subacute hepatic failure without coma; D65 Disseminated intravascular coagulation [defibrination syndrome]; N17.0 Acute kidney failure with tubular necrosis; D68.9 Coagulation defect, unspecified; E87.2 Acidosis; K92.2 Gastrointestinal hemorrhage, unspecified; M62.82 Rhabdomyolysis; E87.0 Hyperosmolality and hypernatremia; I42.9 Cardiomyopathy, unspecified; E87.1 Hypo-osmolality and hyponatremia; B34.9 Viral infection, unspecified; E86.0 Dehydration; E87.8 Other disorders of electrolyte and fluid balance, not elsewhere classified; I95.9 Hypotension, unspecified; E87.6 Hypokalemia; R74.0 Nonspecific elevation of levels of transaminase and lactic acid dehydrogenase [LDH]
CPT/HCPCS: 36415; 36600; 70450; 71045; 74176; 76700; 80048; 80053; 80061; 80074; 80164; 80178; 80202; 80307; 80320; 81001; 82140; 82550; 82553; 82570; 82803; 82962; 83615; 83735; 84100; 84300; 84439; 84443; 84484; 85007; 85025; 85027; 85379; 85384; 85610; 85730; 86592; 86900; 86901; 86965; 87040; 87070; 87086; 87205; 87806; 93005; 93010; 93306; 94002; 94003; 95819; 99292; G0378; C9113; G0480; J0133; J0171; J0696; J1100; J1953; J2060; J2250; J2370; J3010; J3370; J3430; J3475; J3480; J7030; J7040; J7050; J7070; J7195; P9012; P9017; P9035; P9047